=== PATIENT | male | born 1940 | race Two or more races ===

== ENCOUNTER → 2022-12-05 11:00 | Outpatient (BNVA) | payer SELFPAY | PROVIDERS: PCP Family Medicine; Visit Provider Nurse Practitioner Family | DX: N40.1 Benign prostatic hyperplasia with lower urinary tract symptoms (principal); N13.8 Other obstructive and reflux uropathy; R35.0 Frequency of micturition; R33.9 Retention of urine, unspecified; E11.65 Type 2 diabetes mellitus with hyperglycemia; N18.9 Chronic kidney disease, unspecified; Z79.82 Long term (current) use of aspirin; Z79.4 Long term (current) use of insulin; Z79.899 Other long term (current) drug therapy | CPT/HCPCS: 51798 ==

== ENCOUNTER 2022-12-27 13:03 | Outpatient (REF) | payer MEDICARE, OTHER, SELFPAY ==
[2022-12-27 14:17] LABS: Anion Gap 10 (12-20); Blood Urea Nitrogen 50 mg/dL (9-16); Calcium 9.5 mg/dL (8.4-10.2); Carbon Dioxide 29 mmol/L (22-29); Chloride 103 mmol/L (96-108); Estimated Glomerular Filt Rate 34; Glucose Random 141 mg/dL (60-115); Potassium 4.3 mmol/L (3.3-5.1); Sodium 138 mmol/L (135-145)
[2022-12-27 14:34] LABS: PSA,Total (Free>4and<10) 0.41 ng/mL (0.00-4.00)
[2022-12-27 14:47] LABS: Folate 13.3 ng/mL (> or = 4.0); Thyroid Stimulating Hormone 3.11 uIU/mL (0.32-4.0); Vitamin B12 252 pg/mL (200-900); Vitamin D 25-OH Total 36.2 ng/mL (>30)
[2022-12-29 17:19] LABS: Homocysteine 21.3 umol/L (<11.4)
[2023-01-01 06:53] LABS: Methylmalonic Acid 423 nmol/L (87-318)
== END 2022-12-27 13:04 | disposition home or self-care (01) ==
LOC: HO.LAB 13:03
PROVIDERS: Nurse Practitioner Family; Visit Provider Psychiatry & Neurology Neurology
DX: Z12.5 Encounter for screening for malignant neoplasm of prostate (principal); G31.84 Mild cognitive impairment of uncertain or unknown etiology; N40.0 Benign prostatic hyperplasia without lower urinary tract symptoms
CPT/HCPCS: 36415; 80048; 82306; 82607; 82746; 83090; 83921; 84153; 84443

== ENCOUNTER 2023-01-05 09:58 | Outpatient (REF) | payer MEDICARE, OTHER, SELFPAY ==
--- NOTE | ~2023-01-05 | US_ITS ---
EXAMINATION: US RETROPERITONEAL COMPLETE (RENAL) CLINICAL INFORMATION: Benign prostatic hyperplasia without lower urinary tract symptoms. COMPARISON: None available. TECHNIQUE: Real-time imaging of the kidneys and bladder. FINDINGS: RIGHT KIDNEY: 12.1 x 6.4 x 5.0 cm (SAG x AP x TRV). The kidney is normal in size, contour, and echogenicity. Renal cortical thickness is normal. No renal calculi or hydronephrosis. There is a benign 1.7 cm upper pole cyst which needs no additional imaging or follow up. No solid renal masses. LEFT KIDNEY: 12.3 x 5.9 x 4.2 cm (SAG x AP x TRV). The kidney is normal in size, contour, and echogenicity. Renal cortical thickness is normal. No renal calculi or hydronephrosis. There are 4 benign Bosniak class I simple cysts, all under a centimeter in size, with the largest measuring 0.8 cm. No additional imaging or follow up is needed. No solid renal masses. BLADDER: Well distended and normal. Bilateral ureteral jets are demonstrated. Prevoid bladder volume is 147 mL. Postvoid bladder volume is 15.9 mL. Enlarged prostate, volume 56.2 mL. US/US retroperitoneal comp IMPRESSION: BPH with 56.2 mL prostate and 15.9 mL postvoid residual.
== END 2023-01-05 09:59 | disposition home or self-care (01) ==
LOC: HO.US 09:58
PROVIDERS: PCP Family Medicine; Visit Provider Nurse Practitioner Family
DX: N40.0 Benign prostatic hyperplasia without lower urinary tract symptoms (principal); R35.0 Frequency of micturition
CPT/HCPCS: 76770

== ENCOUNTER → 2023-01-20 10:52 | Outpatient (BNVA) | payer MEDICARE, OTHER, SELFPAY | PROVIDERS: Visit Provider Nurse Practitioner Family | DX: N40.1 Benign prostatic hyperplasia with lower urinary tract symptoms (principal); R33.9 Retention of urine, unspecified; R35.0 Frequency of micturition; R35.1 Nocturia; N28.1 Cyst of kidney, acquired | CPT/HCPCS: 51798; 99212 ==

== ENCOUNTER → 2023-01-25 08:48 | Outpatient (REF) | payer MEDICARE, OTHER, SELFPAY | LOC: HO.SL 08:48 | PROVIDERS: PCP Family Medicine; Visit Provider Psychiatry & Neurology Neurology | DX: G47.33 Obstructive sleep apnea (adult) (pediatric) (principal) | CPT/HCPCS: 95806 ==

== ENCOUNTER → 2023-01-25 19:00 | Outpatient (BNV) | payer MEDICARE, SELFPAY | PROVIDERS: PCP Family Medicine; Visit Provider Internal Medicine | DX: R06.83 Snoring (principal) | CPT/HCPCS: 95806 ==

== ENCOUNTER 2023-01-31 08:03 | Outpatient (REF) | payer MEDICARE, SELFPAY ==
--- NOTE | ~2023-01-31 | CT_ITS ---
EXAMINATION: CT HEAD WITHOUT CONTRAST CLINICAL INFORMATION: Cognitive impairment. COMPARISON: None available. TECHNIQUE: Contiguous axial imaging was performed from the skull base to vertex without intravenous administration of contrast. This CT examination was performed using dose optimization techniques as appropriate, variously including the following: *Automated exposure control. *Adjustment of mA and/or kV according to patient size (this includes techniques or standardized protocols for targeted exams where dose is matched to indication/reason for exam; i.e. extremities or head). *Use of iterative reconstruction technique. DLP: 902 mGy-cm FINDINGS: There is chronic encephalomalacia within the left occipital lobe with associated volume loss. 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 No additional loss of clark-white matter differentiation. No evidence of acute intracranial hemorrhage. Scattered and partially confluent hypoattenuation in the periventricular and deep white matter are consistent with moderate to extensive microangiopathy. Proportional prominence of the ventricles and sulcal spaces without evidence of obstructive hydrocephalus. No abnormal mass effect or midline shift. No extra-axial fluid collections. No acute soft tissue or osseous abnormalities. Mild mucosal thickening of the paranasal sinuses. The mastoid air cells and middle ear cavities are clear. Moderate degenerative arthropathy of the right temporomandibular joint. Bilateral lens extractions. CT/CT head/brain wo IV con IMPRESSION: 1. No evidence of acute intracranial hemorrhage or edematous territorial infarction. 2. Chronic encephalomalacia of the left occipital lobe. 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 Moderate to extensive underlying microangiopathy and generalized cerebral volume loss.
== END 2023-01-31 08:04 | disposition home or self-care (01) ==
LOC: HO.CT 08:03
PROVIDERS: PCP Family Medicine; Visit Provider Psychiatry & Neurology Neurology
DX: G31.84 Mild cognitive impairment of uncertain or unknown etiology (principal)
CPT/HCPCS: 70450

== ENCOUNTER 2023-04-18 12:41 | Outpatient (REF) | payer MEDICARE, SELFPAY ==
--- NOTE | ~2023-04-18 | XR_ITS ---
EXAMINATION: XR LUMBOSACRAL SPINE WITH OBLIQUES CLINICAL INFORMATION: Pain in right hip, chronic right-sided low back pain with right-sided radiculopathy COMPARISON: None available. TECHNIQUE: AP, both oblique, and lateral views of the lumbar spine. Lateral view of the lumbosacral junction. FINDINGS: There are 5 nonrib-bearing lumbar-type vertebral bodies. The height of vertebral bodies is well-maintained. There is mild disc space narrowing at L3-L4 and L4-L5. There is marked degenerative facet joint disease at L5-S1 with grade 1 anterolisthesis of L5 with respect to S1. There is calcification of the abdominal aorta without evidence of aneurysmal dilatation. XR/XR lumbar spine 4V min IMPRESSION: 1. Multilevel degenerative disc disease. 2. Marked degenerative facet joint disease at L5-S1 with grade 1 anterolisthesis of L5 with respect to S1.
--- NOTE | ~2023-04-18 | XR_ITS ---
EXAMINATION: XR HIP, RIGHT CLINICAL INFORMATION: Pain of right hip, chronic right-sided low back pain with right-sided radiculopathy COMPARISON: None available. TECHNIQUE: Two views of the right hip. FINDINGS: No fracture. Alignment is anatomic. Mild superior-lateral narrowing of the cartilage space of the right hip. Soft tissues are unremarkable. Femoral arterial vascular calcification is seen consistent with atherosclerosis. XR/XR hip RT min 2V IMPRESSION: Mild osteoarthritis of the right hip.
== END 2023-04-18 12:42 | disposition home or self-care (01) ==
LOC: HO.HHCX 12:41
PROVIDERS: Visit Provider Family Medicine
DX: M25.551 Pain in right hip (principal); M54.10 Radiculopathy, site unspecified; M54.50 Low back pain, unspecified
CPT/HCPCS: 72110; 73502

== ENCOUNTER 2023-08-30 16:00 | Outpatient (REF) | payer MEDICARE, SELFPAY ==
[2023-08-30 16:15] LABS: Appearance Urine Clear; Color Urine Yellow; Glucose Urine UA >=1000 mg/dL (Negative); Leukocyte Esterase Urine Negative (Negative); Nitrite Urine Negative (Negative); PH 5.5 (5.0-9.0); UMIC TRIGGER UA YES; Urine Blood Negative (Negative); Urine Ketones Negative (Negative); Urine Protein 100 (2+) mg/dL (Neg-Trace)
[2023-08-30 16:17] LABS: Bacteria Urine None Seen (None Seen); Hyaline Casts Urine 0-2 /LPF (0-2); RBC Urine 0-2 /HPF (0-2); Squamous Epithelial Cell Urine 0-2 /HPF (0-2); WBC Urine 0-5 /HPF (0-5)
[2023-08-30 17:17] LABS: Microalbum/Creatinine Ratio Ur 1055.1 ug/mg cr (<30)
== END 2023-08-30 16:01 | disposition home or self-care (01) ==
LOC: HO.HHCLNP 16:00
PROVIDERS: Visit Provider Family Medicine
DX: R30.0 Dysuria (principal); E11.22 Type 2 diabetes mellitus with diabetic chronic kidney disease; N18.32 Chronic kidney disease, stage 3b
CPT/HCPCS: 81001; 82043; 82570; 87086

== ENCOUNTER 2023-10-11 11:15 | Outpatient (REF) | payer MEDICARE, SELFPAY ==
[2023-10-11 13:27] LABS: MANUAL DIFF FLAG NO
[2023-10-11 13:31] LABS: Basophils Absolute Auto 0.1 X10*3/uL (0.0-0.2); Basophils Percent Auto 0.8 % (0-2); Eosinophils Absolute Auto 0.1 X10*3/uL (0.0-0.4); Eosinophils Percent Auto 1.3 % (0-4); Hematocrit 35.3 % (42.0-52.0); Hemoglobin 10.8 g/dl (14.0-18.0); Imm Gran Abs Auto 0.03 X10*3/uL (0.00-0.03); Imm Gran Pct Auto 0.4 % (0.0-0.4); Lymphocytes Absolute Auto 1.4 X10*3/uL (1.2-4.9); Mean Corpuscular HGB Conc 30.6 g/dl (31.0-36.0); Mean Corpuscular Hemoglobin 26.2 pg (27.0-33.0); Mean Corpuscular Volume 85.5 fL (80.0-98.0); Mean Platelet Volume 9.2 fL (9.4-12.4); Monocytes Absolute Auto 0.5 X10*3/uL (0.1-1.2); Monocytes Percent Auto 6.7 % (2-11); Neutrophils Absolute Auto 5.7 x10*3/uL (2.0-8.3); Neutrophils Percent Auto 72.8 % (45-73); Platelet Count 284 X10*3/uL (160-400); Red Blood Count 4.13 X10*6/uL (4.60-5.80); White Blood Count 7.8 X10*3/uL (4.8-10.8)
[2023-10-11 14:01] LABS: Alanine Aminotransferase 12 U/L (0-40); Albumin Level 4.2 g/dL (3.5-5.0); Alkaline Phosphatase 93 U/L (39-117); Anion Gap 14 (12-20); Aspartate Amino Transferase 13 U/L (5-37); Bilirubin Total 0.3 mg/dL (0.0-1.0); Blood Urea Nitrogen 23 mg/dL (9-16); Calcium 9.6 mg/dL (8.4-10.2); Carbon Dioxide 27 mmol/L (22-29); Chloride 99 mmol/L (96-108); Cholesterol 153 mg/dL (<200); Estimated Glomerular Filt Rate 35; Glucose Random 190 mg/dL (60-115); HDL Cholesterol 69 mg/dL (>40); LDL Cholesterol Calculated 61 mg/dL (<100); Potassium 4.1 mmol/L (3.3-5.1); Sodium 136 mmol/L (135-145); Total Protein 7.8 g/dL (6.5-8.0); Triglycerides 119 mg/dL (<150)
[2023-10-11 14:05] LABS: Reflex LDLD? No
[2023-10-11 14:21] LABS: Folate 13.5 ng/mL (> or = 4.0); Vitamin B12 1338 pg/mL (200-900)
[2023-10-11 14:37] LABS: Free T4 (Free Thyroxine) 1.05 ng/dL (0.71-1.85)
== END 2023-10-11 11:16 | disposition home or self-care (01) ==
LOC: HO.HHCL 11:15
PROVIDERS: Visit Provider Family Medicine
DX: E11.22 Type 2 diabetes mellitus with diabetic chronic kidney disease (principal); N18.32 Chronic kidney disease, stage 3b; R63.4 Abnormal weight loss
CPT/HCPCS: 36415; 80053; 80061; 82607; 82746; 84439; 84443; 85025

== ENCOUNTER 2024-01-17 10:01 | Outpatient (REF) | payer MEDICARE, SELFPAY ==
[2024-01-17 11:26] LABS: Prostate Specific Antigen 0.67 ng/mL (<0.05-4.0)
== END 2024-01-17 10:02 | disposition home or self-care (01) ==
LOC: HO.10HDL 10:01
PROVIDERS: Visit Provider Nurse Practitioner Family
DX: Z12.5 Encounter for screening for malignant neoplasm of prostate (principal); R33.9 Retention of urine, unspecified; R35.0 Frequency of micturition; N40.0 Benign prostatic hyperplasia without lower urinary tract symptoms; N28.1 Cyst of kidney, acquired; R35.1 Nocturia
CPT/HCPCS: 36415; 51798; 84153; 99212

== ENCOUNTER 2024-01-17 13:42 | Outpatient (AMB) | payer MEDICARE, MEDICAID, SELFPAY ==
--- NOTE | 2024-01-17 13:44 | A.OFFVIS_ITS ---
Intake Visit Reasons: 1y/PVR/labs Intake Note: Patient is present for follow up bph/urinary frequency/ultrasound/labs (imaging 01/05/23) (psa 0.41) Urology medications: finasteride, tamsulosin Blood Thinner: aspirin, apixaban PVR: 81ml's Personnel Manager Required: Yes Accompanied by: Daughter Allergies ezetimibe Allergy (Verified 01/17/24 14:12) itchy throat rosuvastatin Adverse Reaction (Verified 01/17/24 14:12) Muscle cramps Medication List - Last Reconciled 01/17/24 by LUIS Bustillo- amlodipine 10 mg PO DAILY apixaban (Eliquis) 5 mg PO BID aspirin 81 mg PO DAILY carvedilol 12.5 mg PO BID cholecalciferol (vitamin D3) 50 mcg PO DAILY dapagliflozin propanediol (Farxiga) 5 mg PO DAILY dulaglutide (Trulicity) mg subcut finasteride 5 mg PO DAILY furosemide 20 mg PO BID gabapentin 300 mg PO TID glipizide ER 5 mg PO QAM insulin degludec (Tresiba FlexTouch U-100 insulin) 10 units subcut DAILY lidocaine 5% 1 patch topical DAILY melatonin 10 mg PO BEDTIME PRN metformin 500 mg PO BID rosuvastatin 20 mg PO BEDTIME tamsulosin 0.8 mg (2 x 0.4 mg) PO BEDTIME 90 days HPI Comments Details: Lazaro is a pleasant 83-year-old Libyan-speaking male patient of Dr. Lopez who was accompanied by his daughter at today's visit. Patients daughter provides most of patients PMH and information at [facility] visit due to patients memory impairment. He has a past medical history of hypertension, DVTs, uncontrolled diabetes, chronic kidney disease, and heart failure. He presents to the office today for follow-up of his urinary issues. In discussion with the patient and his daughter today he reports to be doing and feeling well. He denies any bothersome urinary issues or concerns. Recent PSA results reviewed with the patient today as noted and trended below. 01/13 0.4, 01/14 0.7 When asked he reports compliance with finasteride and Flomax as prescribed. Previous workup has included a retroperitoneal ultrasound noting right kidney with no calculi or hydronephrosis. Benign 1.7 cm upper pole cyst which needs no additional imaging or follow-up at this time. Left kidney with no calculi or hy dronephrosis. There are four benign Bosniak class 1 simple cyst, all under a cm in size, with the largest measuring 0.8 cm. No additional imaging or follow-up is needed. The bladder is well distended and normal. The prostate measures approximately 57 mL. He otherwise denies incontinence, nocturia, hematuria, dysuria, foul smelling urine, changes to urinary stream, flank pain, fever, and or chills. Discussed importance of managing diabetes for improvement in urinary symptoms as well as overall health and well being. Unable to obtain urine for urinalysis however PVR 81ml's. COUNTS INCLUDE 234 BEDS AT THE [facility] Medical History Chronic bilateral back pain Cognitive impairment Urinary frequency Memory problem Dyslipidemia Type 2 diabetes mellitus Urinary incontinence Chronic kidney disease Benign prostatic hyperplasia with lower urinary tract symptoms Primary hypertension Premature atrial complexes Sleep disturbance Review of Systems Const Reports as per HPI Eyes Reports no additional complaints ENT Reports no additional complaints Card Reports as per HPI Resp Reports no additional complaints GI Reports no additional complaints Reports as per HPI Musc Reports no additional complaints Neuro Reports no additional complaints Psych Reports no additional complaints Endo Reports as per HPI Jensen/Lymph Reports as per HPI Physical Exam Const General: cooperative, healthy appearing, comfortable, no acute distress, well developed, alert and awake Orientation/consciousness: patient oriented x3 Limitations: ambulation with cane HEENT Head: Yes normal to inspection, Yes normocephalic and Yes atraumatic Ears: hearing grossly normal bilaterally Eyes General: appearance normal, both eyes and all related structures Neck Neck: Yes normal visual inspection and Yes trachea midline Chest Chest palpation & inspection: normal inspection of the chest Resp Effort & Inspection: normal respiratory effort and able to speak in complete sentences Cardio Rate: regular rate GI Inspection: Yes normal to inspection General: Yes no CVA tenderness Back/Spine/Pelvis Back: no CVA tenderness Skin General skin exam: no rashes or lesions noted Neuro General: patient oriented x3 Extrem General: Yes normal to inspection Psych Appearance: grossly normal and well kempt Mental Status: mental status grossly normal Speech and movement: Normal speech and movement present and Clear speech present Affect: normal affect Attitude: cooperative Thought process: Normal thought process present Thought content: Normal thought content present Insight: Fair insight present (Psych) Judgement: Fair judgement present (Psych) Office Procedures Post Void Residual Post Residual Void Post Void Residual (PVR): 81 [id number] Void Residual by ultrasound Assessment & Plan Assessment & Plan (1) Incomplete bladder emptying: Code(s): R33.9 - Retention of urine, unspecified Category: Medical (2) Urinary frequency: Code(s): R35.0 - Frequency of micturition Category: Medical (3) BPH (benign prostatic hyperplasia): Code(s): N40.0 - Benign prostatic hyperplasia without lower urinary tract symptoms Category: Medical (4) Enlarged prostate: Code(s): N40.0 - Benign prostatic hyperplasia without lower urinary tract symptoms Category: Medical (5) Renal cyst: Code(s): N28.1 - Cyst of kidney, acquired Category: Medical (6) Nocturia: Code(s): R35.1 - Nocturia Category: Medical Plan Unable to obtain urine for urinalysis however PVR 81 mL. Recent PSA results reviewed with the patient and his daughter today; as noted above. Continue Flomax and finasteride as prescribed; refills provided Patient currently denies any bothersome urinary issues or concerns. He reports be happy with current voiding parameters. Will obtain PSA in 1 year. Follow-up in 1 year with lab to be completed prior and PVR at next office visit; or sooner with any issues, concerns, and or questions. Orders: Orders AMB Post Void Residual by ultrasound Today R35.1 - Nocturia Prostate Specific Antigen Today Z12.5 - Encounter for screening for malignant neoplasm of prostate Prostate Specific Antigen 1 Year N40.0 - Benign prostatic hyperplasia without lower urinary tract symptoms Medications: Changed From finasteride 5 mg PO DAILY To finasteride 5 mg PO DAILY 90 days 90 tabs 2RF Refilled tamsulosin 0.8 mg (2 x 0.4 mg) PO BEDTIME 90 days 180 caps 3RF N13.8 - Other obstructive and reflux uropathy, N40.1 - Benign prostatic hyperplasia with lower urinary tract symptoms Patient Instructions: The patient had an opportunity to ask questions regarding the treatment plan. All questions were answered. Physical exam, labs, and imaging were discussed and reviewed in detail. As well as risks, benefits, and discussion of treatment choices. No major barriers to understanding were identified. The patient expressed understanding and agreement with the above treatment plan. The patient was made aware they should contact our office by phone for worsening of their current condition, the appearance of new symptoms, or with any questions or concerns. Compliance is encouraged with any medications and follow up testing that is ordered. It is a privilege to be allowed the opportunity to participate in? your urological care.? Again, if you have any questions or concerns If you have any questions or concerns please do not hesitate to contact me. The office is [phone]. This note is constructed using voice recognition software. While every effort has been made to ensure accuracy education program coordinator errors may have been included. Yours sincerely, SABRINA Bustillo Coding Level of Care Code Est Pt Level 3 (05769) Diagnoses Incomplete bladder emptying R33.9 Urinary frequency R35.0 BPH (benign prostatic hyperplasia) N40.0 Enlarged prostate N40.0 Renal cyst N28.1 Nocturia R35.1 CPT Codes Post Residual Void - PVR CPT Code: 38675-[id number] Void Residual by ultrasound ([id number])
== END 2024-01-17 14:12 | disposition home or self-care (01) ==
LOC: HO.HUSH 13:42
PROVIDERS: PCP Family Medicine; Visit Provider Nurse Practitioner Family
DX: R33.9 Retention of urine, unspecified (principal); R35.0 Frequency of micturition; N40.0 Benign prostatic hyperplasia without lower urinary tract symptoms; N28.1 Cyst of kidney, acquired; R35.1 Nocturia
CPT/HCPCS: 99213

== ENCOUNTER 2024-06-18 10:15 | Outpatient (REF) | payer MEDICARE, MEDICAID, SELFPAY ==
[2024-06-18 12:25] LABS: Alanine Aminotransferase 18 U/L (0-40); Albumin Level 3.9 g/dL (3.5-5.0); Alkaline Phosphatase 76 U/L (39-117); Anion Gap 11 (12-20); Aspartate Amino Transferase 16 U/L (5-37); Bilirubin Total 0.5 mg/dL (0.0-1.0); Blood Urea Nitrogen 30 mg/dL (9-16); Calcium 9.1 mg/dL (8.4-10.2); Carbon Dioxide 24 mmol/L (22-29); Chloride 104 mmol/L (96-108); Estimated Glomerular Filt Rate 29; Glucose Random 182 mg/dL (60-115); Potassium 4.3 mmol/L (3.3-5.1); Sodium 135 mmol/L (135-145)
== END 2024-06-18 10:16 | disposition home or self-care (01) ==
LOC: HO.HHCL 10:15
PROVIDERS: Visit Provider Internal Medicine
DX: E11.22 Type 2 diabetes mellitus with diabetic chronic kidney disease (principal); N18.32 Chronic kidney disease, stage 3b
CPT/HCPCS: 36415; 80053

== ENCOUNTER 2024-09-11 11:33 | Outpatient (REF) | payer MEDICARE, MEDICAID, SELFPAY ==
--- OUTSIDE RECORDS SUMMARY | 2024-09-11 12:12 | XMS_ITS | Encounter Summary ---
Author Organization [employer] Address [address] [facility] [address] [place] [address] Care Team Providers Care Child And Adolescent Therapist Name Role Phone Lula Lopez MD Primary Care Provider [phone] Pieter Murguia PharmD Unavailable [phone] Kushal Doe MD Unavailable Encounter Details Date Type Department Care Team (Latest Contact Info) Description 09/11/2024 Travel Social History Tobacco Use Types Packs/Day Years Used Date Smoking Tobacco: Never Passive Smoke Exposure: Never Smokeless Tobacco: Never Alcohol Use Standard Drinks/Week Comments Not Currently 0 (1 standard drink = 0.6 oz pur e alcohol) Depression Answer Date Recorded Patient Health Questionnaire-9 Score 2 10/11/2022 Housing Stability Answer Date Recorded What is your housing situation today? I am not s ure 09/11/[address] you li ve. Do you have problems with any of the following? None of the above 09/11/2024 Food Insecurity Answer Date Recorded Within the past 12 months, y ou worried that your food would run out before you got money to buy more: Never True 09/11/2024 Within the past 12 months,th e food you bought just didn't last and you didn't have enough money to get more: Never True Transportation Answer Date Recorded In the past 12 months, has l ack of transportation kept you from medical appts, meetings, work or from getting things needed for daily living? No 09/11/2024 Utilities Answer Date Recorded In the past 12 months, has t he electric, gas, oil or water company threatened to shut off services in your home? No 09/11/2024 Depression Answer Date Recorded Patient Health Questionnaire-2 Score 2 10/11/2022 Internet Access Answer Date Recorded Internet Access Q1 No 09/11/2024 Internet Access Q2 I do not want or need it 08/24 Sex and Gender Information Value Date Recorded Sex Assigned at Male 05/23/2022 10:38 AM EDT Legal Sex Male 10:38 AM EDT Gender Identity Male 05/23/2022 10:38 AM EDT Sexual Orientation Straight 01/05/2023 3: 34 PM EDT documented as of this encounter Plan of Treatment Not on file documented as of this encounter Goals Goal Patient Goal Type Associated Problems Recent Progress Patient-Stated? Author Blood Pressure < 140/90 Blood Pressure 140/70( 025 11:18 AM EST) No Pieter Murguia, PharmD documented as of this encounter Visit Diagnoses Not on filedocumented in this encounter Additional Health Concerns Assessment Noted Time PHQ-9 Depression Total Score: 2 10/12/19 23 10:24 AM EDT documented as of this encounter Care Teams Child And Adolescent Therapist Relationship Specialty Start Date End Date Lula Lopez MD [address] [place] [address] PCP - General Family Medicine 09/01/22 Pieter Murguia, PharmD [address] [place] [address] Pharmacist Internal Medicine 11/28/22 Kushal Doe MD [facility] Nephrology [address] [place] [id number] Nephrology 06/19/24 documented as of this encounter
--- OUTSIDE RECORDS SUMMARY | 2024-09-11 12:12 | XMS_ITS | Encounter Summary ---
Author Organization [employer] Address [address] [facility] [address] [place] [address] Care Team Providers Care Facing Baster Name Role Phone Lula Lopez MD Primary Care Provider [phone] Pieter Murguia PharmD Unavailable [phone] Kushal Doe MD Unavailable Reason for Visit * Reason Comments Med Refill Encounter Details Date Type Department Care Team (Late st Contact Info) Description 04/07/2024 Refill [facility] MEDICINE [address] [place], [place] [phone] Lula Lopez MD [address] [place], [place] [phone] Social History Tobacco Use Types Packs/Day Years Used Date Smoking Tobacco: Never Passive Smoke Exposure: Never Smokeless Tobacco: Never Alcohol Use Standard Drinks/Week Comments Not Currently 0 (1 standard drink = 0.6 oz pur e alcohol) Depression Answer Date Recorded Patient Health Questionnaire-9 Score 2 10/11/2022 Housing Stability Answer Date Recorded What is your housing situation today? I have rica cantu 05/12/[address] you li ve. Do you have problems with any of the following? None of the above 05/12/2023 Food Insecurity Answer Date Recorded Within the past 12 months, y ou worried that your food would run out before you got money to buy more: Never True 05/12/2023 Within the past 12 months,th e food you bought just didn't last and you didn't have enough money to get more: Never True Transportation Answer Date Recorded In the past 12 months, has l ack of transportation kept you from medical appts, meetings, work or from getting things needed for daily living? No 05/12/2023 Utilities Answer Date Recorded In the past 12 months, has t he electric, gas, oil or water company threatened to shut off services in your home? No 05/12/2023 Depression Answer Date Recorded Patient Health Questionnaire-2 Score 2 10/11/2022 Sex and Gender Information Value Date Recorded [...] documented as of this encounter Care Teams Facing Baster Relationship Specialty Start Date End Date Lula Lopez MD [address] [place] [address] PCP - General Family Medicine 09/01/22 Pieter Murguia, PharmD [address] [place] [address] Pharmacist Internal Medicine 11/28/22 Kushal Doe MD [facility] Nephrology [address] [place] [id number] Nephrology 06/19/24 documented as of this encounter
--- OUTSIDE RECORDS SUMMARY | 2024-09-11 12:12 | XMS_ITS | Patient Health Record ---
[facility] Address [address] [place] [address] Care Team Providers Care Wall Washer Name Role Phone Campbell, Travis Primary Care Provider Tonio Holloway Unavailable [phone] Allergies Allergen (clinical drug ingredient) Drug/Non Drug Allergy documented on EMR Reaction Allergy Type Onset Date Status rosuvastatin Crestor muscle cramps Drug Allergy Active ezetimibe Zetia itchy throat Drug Allergy Acti ve lactose Lactose (Intolerance) Unknown Drug Allergy Active Reason For Referral No Information Medications Medication SIG (Take, Route, Frequency, Duration) Notes Start Date End Date Status Rosuvastatin Calcium 20 MG 1 tablet Oral ly Once a day for 30 day(s) Active hydroCHLOROthiazide 25 MG 1 tablet in th e morning Orally Once a day for 30 day(s) Active amLODIPine Besylate 5 MG 1 tablet Orally Once a day for 30 day(s) Active metFORMIN HCl 1000 MG 1 tablet with a me al Orally Once a day for 30 day(s) Active Losartan Potassium 50 MG 1 tablet Orally Once a day for 30 day(s) Active Ginkgo Biloba Active Isosorbide Mononitrate ER 30 MG 1 tablet in the morning Orally Once a day for 30 day(s) Active [place] 3-6-9 - as directed Orally Active Carvedilol 25 MG 1 tablet with food Orally Twice a day for 30 day(s) Active Finasteride 5 MG 1 tablet Orally Once a day for 30 day(s) Active Omeprazole 40 MG 1 capsule 30 minutes before morning meal Orally Once a day for 30 day(s) Not-Taking glipiZIDE ER 10 MG 1 tablet with breakfast Orally Once a day for 30 day(s) Active Gabapentin 300 MG 1 capsule Orally Twice a day Not-Taking Aspirin Adult Low Strength 81 MG 1 tablet Orally Once a day for 30 day(s) Active Furosemide 20 MG 1 tablet Orally Once a day for 30 day(s) Active Tamsulosin HCl 0.4 MG 1 capsule Orally O nce a day for 30 day(s) Active Iron Not-Taking Extra Depth Orthopedic Shoes (1 Pair) with Customized Heat Molded Multidensity Innersoles (3 Pair) as directed Dx: NIDDM/PVD (E11.59), Hammertoe Foot Deformity (M20.41,M20.42), Preulcerative Skin Lesion(s) (L85.1) 09/30/2020 Active Social History Tobacco Use: Social History Observation Description Date Details (start date - stop date) Never Smoker NA - NA Tobacco Use/Smoking Question Answer Notes Are you a: nonsmoker Additional Findings: Tobacco Non-User Current no n-smoker Alcohol Screen Question Answer Notes Did you have a drink containing alcohol in the p ast year? No Points 0 Interpretation Negative Tobacco use other than smoking: Question Answer Notes Are you an other tobacco user? No Problems Problem Type SNOMED Code ICD Code Onset Dates Problem Status W/U Status Risk Notes Problem Type 2 diabetes mellitus with peripheral angiopathy (658522789) Type 2 diabetes mellitus with diabetic peripheral angiopathy without gangrene (E11.51) Active confirmed Plan Of Treatment Pending Test Test Name Order Date [id number] NAIL, 6 OR MORE 09/30/2020 [id number] SKIN LESIONS, 2 TO 4 10/01/19 21 Insurance Providers Payer Name Payer Address Payer Phone Subscriber Number Group Number Insured Name Patient Relationship to Insured Coverage Start Date Coverage End Date [facility] Medicare Complete [address] [address] [place] [address] [id number] Lazaro Saleh Self - patient is the insured Medical (General) History Medical History History ICD Code Hypertension type II diabetes Hyperlipidemia Depression Prostate conditions Anemia Angina Heart disease Back pain Cataracts High blood pressure Measles Mumps Chicken pox Surgical History Surgery Date(Month/Year) stent insertion - three 08/2015 cholecystectomy Hernia Repair foot surgery - 5 metatarsal removed 10/10 17 cataract surgery 01/2017
--- OUTSIDE RECORDS SUMMARY | 2024-09-11 12:12 | XMS_ITS | Encounter Summary ---
Author Organization [employer] Address [address] [facility] [address] [place] [address] Care Team Providers Care Derrick Car Operator Name Role Phone Lula Lopez MD Primary Care Provider Pieter Murguia PharmD Unavailable [phone] Kushal Doe MD Unavailable Reason for Visit * Reason Comments Med Refill Encounter Details Date Type Department Care Team (Late st Contact Info) Description 04/10/2024 Refill [facility] MEDICINE [address] [place], [place] [phone] Lula Lopez MD [address] [place], [place] [phone] Pain of right hip; Chronic right-sided low back pain, unspecified whether sciatica present Social History Tobacco Use Types Packs/Day Years [...] documented as of this encounter Visit Diagnoses Diagnosis Pain of right hip Chronic right-sided low back pain, unspecified whether sciatica present documented in this encounter Additional Health Concerns Assessment Noted Time PHQ-9 Depression Total Score: 2 10/12/19 23 10:24 AM EDT documented as of this encounter Care Teams Derrick Car Operator Relationship Specialty Start Date End Date Lula Lopez MD [address] [place] [address] PCP - General Family Medicine 09/01/22 Pieter Murguia, PharmD [address] [place] [address] Pharmacist Internal Medicine 11/28/22 Kushal Doe MD [facility] Nephrology [address] [place] [id number] Nephrology 06/19/24 documented as of this encounter
--- OUTSIDE RECORDS SUMMARY | 2024-09-11 12:12 | XMS_ITS | Encounter Summary ---
Author Organization [facility] Address [address] [place] [address] 7t [place] [address] Care Team Providers Care Attendant Self Service Store Name Role Phone Lula Lopez MD Primary Care Provider [phone] Pieter Murguia PharmD Unavailable [phone] Kushal Doe MD Unavailable Encounter Details Date Type Department Care Team (Late st Contact Info) Description 10/07/2022 Abstract [facility] MEDICINE [address] [place], [place] [phone] Lula Lopez MD [address] [place], [place] [phone] Social History Tobacco Use Types Packs/Day Years Used Date Smoking Tobacco: Former Cigarettes Passive Smoke Exposure: Never Smokeless Tobacco: Never Alcohol Use Standard Drinks/Week Comments Not Currently 0 (1 standard drink = 0.6 oz pur e alcohol) Depression Answer Date Recorded Patient Health Questionnaire-9 Score 2 10/11/2022 Depression Answer Date Recorded Patient Health Questionnaire-2 Score 2 10/11/2022 Sex and Gender Information Value Date Recorded Sex Assigned at Male 05/23/2022 10:38 AM EDT Legal Sex Male 10:38 AM EDT Gender Identity Male 05/23/2022 10:38 AM EDT Sexual Orientation Straight 01/05/2023 3: 34 PM EDT documented as of this encounter Plan of Treatment Not on file documented as of this encounter Visit Diagnoses Not on filedocumented in this encounter Care Teams Attendant Self Service Store Relationship Specialty Start Date End Date Lula Lopez MD [address] [place] [address] PCP - General Family Medicine 09/01/22 Pieter Murguia, PharmD [address] [place] [address] Pharmacist Internal Medicine 11/28/22 Kushal Doe MD [facility] Nephrology [address] [place] [address] Nephrology 06/19/24 documented as of this encounter
--- OUTSIDE RECORDS SUMMARY | 2024-09-11 12:12 | XMS_ITS ---
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) ACTIVE 09/17/2022 MUSCLE WEAKNESS (GENERALIZED) (M62.81 - ICD-10-CM) ACT ANA 09/17/2022 DIFFICULTY IN WALKING, NOT E LSEWHERE CLASSIFIED (R26.2 - ICD-10-CM) ACTIVE 09/17/2022 WEAKNESS (R53.1 - ICD-10-CM) ACTIVE 09/17/2022 ESSENTIAL (PRIMARY) HYPERTENSION (I10 - ICD-10-CM) ACT ANA 09/17/2022 TYPE 2 DIABETES MELLITUS WIT HOUT COMPLICATIONS (E11.9 - ICD-10-CM) ACTIVE 09/17/2022 UNSPECIFIED DEMENTIA, UNSPEC IFIED SEVERITY, WITHOUT BEHAVIORAL DISTURBANCE, PSYCHOTIC DISTURBANCE, MOOD DISTURBANCE, AND ANXIETY (F03.90 - ICD-10-CM) ACTIVE 09/17/2022 REPEATED FALLS (R29.6 - ICD-10-CM) ACTIVE 2022 ACUTE EMBOLISM AND THROMBOSI S OF UNSPECIFIED DEEP VEINS OF LOWER EXTREMITY, BILATERAL (I82.403 - ICD-10-CM) ACTIVE 09/17/2022 RETENTION OF URINE, UNSPECIFIED (R33.9 - ICD-10-CM) AC TIVE 09/17/2022 HYPERTENSIVE URGENCY (I16.0 - ICD-10-CM) ACTIVE 09/17/2022 OTHER SPECIFIED CARDIAC ARRHYTHMIAS (I49.8 - ICD-10-CM ) ACTIVE 09/17/2022 VITAMIN DEFICIENCY, UNSPECIFIED (E56.9 - ICD-10-CM) AC TIVE 09/17/2022 HYPERLIPIDEMIA, UNSPECIFIED (E78.5 - ICD-10-CM) ACTIVE 09/17/2022 UNSPECIFIED FALL, SEQUELA (W19.XXXS - ICD-10-CM) ACTIV E 09/17/2022 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 with home health services [facility] 09/17/2022 04:16 pm EST - 09/22/2022 02:23 pm EST Immunizations Vaccine Date SARS-COV-2 (COVID-19) 11/18/2020 12:00 a m EDT SARS-COV-2 (COVID-19) 10/20/2020 12:00 a m EDT SARS-COV-2 (COVID-19 BOOSTER) 11/04/2021 12:00 am EDT SARS-COV-2 (COVID-19 BOOSTER) 06/29/2021 12:00 am EST Social History
--- OUTSIDE RECORDS SUMMARY | 2024-09-11 12:12 | XMS_ITS | Encounter Summary ---
Author Organization [employer] Address [address] [place] [address] 7 [place] [address] Care Team Providers Care Cnc Manufacturing Engineer Name Role Phone Lula Lopez MD Primary Care Provider [phone] Pieter Murguia PharmD Unavailable [phone] Kushal Doe MD Unavailable Reason for Visit * Reason Comments Follow-up Encounter Details Date Type Department Care Team (Late st Contact Info) Description 09/11/2024 10:30 AM EST Office Visit [facility] MEDICINE [address] [place], [place] [phone] Lula Lopez MD [address] [place], [place] [phone] Primary hypertension (Primary Dx); Ischemic heart disease; Chronic heart failure with preserved ejection fraction (CMS/HCC); Stage 3b chronic kidney disease (CMS/HCC); Urinary incontinence, unspecified type; Benign prostatic hyperplasia with urinary frequency; Type 2 diabetes mellitus with stage 3b chronic kidney disease, without long-term current use of insulin (CMS/HCC); Dyslipidemia; Cognitive impairment; Chronic low back pain, unspecified back pain laterality, unspecified whether sciatica present; Atrial premature complex; Urinary urgency Social History Tobacco Use Types Packs/Day Years [...] PM EDT documented as of this encounter Last Filed Vital Signs Vital Sign Reading Time Taken Comments Blood Pressure 140/70 09/11/2024 11:18 AM EST Pulse 78 09/11/2024 10:55 AM EST Temperature 37.2 ??C (98.9 ??F) 09/11/2024 10:[address] Respiratory Rate 20 09/11/2024 10:55 AM EST Oxygen Saturation 97% 09/11/2024 10:55 AM EST Inhaled Oxygen Concentration - - Weight 83.1 kg (183 lb 3.2 oz) 09/11/2024 10:55 AM EST Height - - Body Mass Index 30.34 02/14/2023 10:35 AM EDT documented in this encounter Miscellaneous Notes * Assessment & Plan Note - Lula Lopez MD - 09/11/2024 6:14 AM ESTAssociated Problem(s): Chronic heart failure with preserved ejection fraction (CMS/HCC) - last TTE on 09/15/22 --moderately dilated LA --mild pulmonary HTN (systolic 42 plus RAP) --normal right ventricle size and function. --normal left ventricular size and systolic function, with mild concentric left ventricular hypertrophy. -- left ventricular ejection fraction is 65-70 %. - Nuclear stress test on 12/13/22 EF 65% - optimizing medical management: ASA; carvedilol; SGLT-2 inhibitor; furosemide; rosuvastatin * Assessment & Plan Note - Lula Lopez MD - 09/11/2024 6:13 AM ESTAssociated Problem(s): Atrial premature complex - question of prior Dx atrial fibrillation, - started on Eliquis for DVT in 2021 - sleep study in January 2023 did not show significant ROSALIND, but showed borderline hypoxemia - follow up with specialist as scheduled - consider overnight oximetry and oxygen supplementation if indicated. documented in this encounter Plan of Treatment Scheduled Orders Name Type Priority Associated Diagnoses Orde r Schedule Lipid Panel with Reflex to Direct LDL Lab Routine Type 2 diabetes mellitus with stage 3b chronic kidney disease, without long-term current use of insulin ([facility]) Expected: 09/11/2024 (Approximate), Expires: 09/11/2025 Albumin, Random Urine W/Creatinine Lab Routine Type 2 diabetes mellitus with stage 3b chronic kidney disease, without long-term current use of insulin (CMS/HCC) Expected: 09/11/2024 (Approximate), Expires: 09/11/2025 Comprehensive Metabolic Panel Lab Routine Type 2 diabetes mellitus with stage 3b chronic kidney disease, without long-term current use of insulin (CMS/HCC) Expected: 09/11/2024 (Approximate), Expires: 09/11/2025 TSH with Reflex to Free T4 Lab Routine Type 2 diabetes mellitus with stage 3b chronic kidney disease, without long-term current use of insulin (CMS/HCC) Expected: 09/11/2024 (Approximate), Expires: 09/11/2025 CBC auto differential Lab Routine Type 2 diabetes mellitus with stage 3b chronic kidney disease, without long-term current use of insulin ([facility]) Expected: 09/11/2024 (Approximate), Expires: 09/11/2025 Urinalysis, Complete, with Reflex to Culture Lab Routine Urinary urgency Expected: 09/11/2024 (Approximate), Expires: 09/11/2025 documented as of this encounter Goals Goal Patient Goal Type Associated Problems Recent Progress Patient-Stated? Author Blood Pressure < 140/90 Blood Pressure 140/70( 025 11:18 AM EST) No Pieter Murguia, Ramón documented as of this encounter Visit Diagnoses Diagnosis Primary hypertension- Primary Unspecified essential hypertension Ischemic heart disease Other specified forms of chronic ischemic heart disease Chronic heart failure with preserved ejection fraction ([facility]) Stage 3b chronic kidney disease ([facility]) Urinary incontinence, unspecified type Benign prostatic hyperplasia with urinary frequency Type 2 diabetes mellitus with stage 3b chronic kidney disease, without long-term current use of insulin ([facility]) Dyslipidemia Other and unspecified hyperlipidemia Cognitive impairment Unspecified persistent mental disorders due to conditions classified elsewhere Chronic low back pain, unspecified back pain laterality, unspecified whether sciatica present Atrial premature complex Supraventricular premature beats Urinary urgency Urgency of urination documented in this encounter Additional Health Concerns Assessment Noted Time PHQ-9 Depression Total Score: 2 10/12/19 23 10:24 AM EDT documented as of this encounter Care Teams Cnc Manufacturing Engineer Relationship Specialty Start Date End Date Lula Lopez MD [address] [place] [address] PCP - General Family Medicine 09/01/22 Pieter Murguia, PharmD [address] [place] [address] Pharmacist Internal Medicine 11/28/22 Kushal Doe MD [facility] Nephrology [address] [place] [address] Nephrology 06/19/24 documented as of this encounter
--- OUTSIDE RECORDS SUMMARY | 2024-09-11 12:12 | XMS_ITS | Encounter Summary ---
Author Organization [facility] Address [address] [phone] Phone Care Team Providers Care Natural Gas Basis Trader Name Role Phone Lula Lopez MD Primary Care Provider Encounter Details Date Type Department Care Team (Late Contact Info) Description 08/24/2024 Orders Only [facility] [address] [phone] Ana Paula Snyder ARNP [address] [phone] Stage 3a chronic kidney disease (HCC); Type 2 diabetes mellitus with diabetic chronic kidney disease (HCC); Hypertension Social History Tobacco Use Types Packs/Day Years Used Date Smoking Tobacco: Never Smokeless Tobacco: Never Alcohol Use Standard Drinks/Week Comments Never 0 (1 standard drink = 0.6 oz pur e alcohol) Sex and Gender Information Value Date Recorded Sex Assigned at Male 04/09/2023 7:37 AM EDT Legal Sex Male 9:34 AM EST Gender Identity Male 04/09/2023 7:37 AM EDT Sexual Orientation Not on file documented as of this encounter Plan of Treatment Upcoming Encounters Date Type Department Care Team (Late Contact Info) Description 09/30/2024 2:30 PM EDT Office Visit [facility] [address] [phone] Ana Paula Snyder ARNP [address] [phone] documented as of this encounter Visit Diagnoses Diagnosis Stage 3a chronic kidney disease (HCC) Type 2 diabetes mellitus with diabetic chronic kidney disease (HCC) Hypertension documented in this encounter Care Teams Natural Gas Basis Trader Relationship Specialty Start Date End Date Lula Lopez MD [address] [place] [address] PCP - General Family Medicine 07/02/24 documented as of this encounter
--- OUTSIDE RECORDS SUMMARY | 2024-09-11 12:12 | XMS_ITS | Encounter Summary ---
Author Organization [employer] Address [address] [facility] 7t [place] [address] Care Team Providers Care Payroll Secretary Name Role Phone Lula Lopez MD Primary Care Provider [phone] Pieter Murguia PharmD Unavailable [phone] Kushal Doe MD Unavailable Reason for Visit * Reason Onset Date Comments Med Refill 07/13/2023 Encounter Details Date Type Department Care Team (Late st Contact Info) Description 07/13/2023 Refill [facility] MEDICINE [address] [place], [place] [phone] Bianka Castrejon MD [address] [place], [place] [phone] Social History Tobacco Use Types Packs/Day Years [...] documented as of this encounter Care Teams Payroll Secretary Relationship Specialty Start Date End Date Lula Lopez MD [address] [place] [address] PCP - General Family Medicine 09/01/22 Pieter Murguia, PharmD [address] [place] [address] Pharmacist Internal Medicine 11/28/22 Kushal Doe MD [facility] Nephrology [address] [place] [address] Nephrology 06/19/24 documented as of this encounter
--- OUTSIDE RECORDS SUMMARY | 2024-09-11 12:12 | XMS_ITS | Encounter Summary ---
Author Organization [employer] Address [address] [facility] 7t [place] [address] Care Team Providers Care Miter Grinder Operator Name Role Phone Lula Lopez MD Primary Care Provider [phone] Pieter Murguia PharmD Unavailable [phone] Kushal Doe MD Unavailable Reason for Visit * Reason Comments Med Refill Encounter Details Date Type Department Care Team (Late st Contact Info) Description 10/11/2023 Refill [facility] 230 [place], [place] [phone] Lula Lopez MD [address] [place], [place] [phone] Primary hypertension Social History Tobacco Use Types Packs/Day Years [...] of this encounter Visit Diagnoses Diagnosis Primary hypertension Unspecified essential hypertension documented in this encounter Additional Health Concerns Assessment Noted Time PHQ-9 Depression Total Score: 2 10/12/19 23 10:24 AM EDT documented as of this encounter Care Teams Miter Grinder Operator Relationship Specialty Start Date End Date Lula Lopez MD [address] [place] [address] PCP - General Family Medicine 09/01/22 Pieter Murguia, PharmD [address] [place] [address] Pharmacist Internal Medicine 11/28/22 Kushal Doe MD [facility] Nephrology [address] [place] [phone] Nephrology 06/19/24 documented as of this encounter
--- OUTSIDE RECORDS SUMMARY | 2024-09-11 12:12 | XMS_ITS | Encounter Summary ---
Author Organization [employer] Address [address] [facility] 7t [place] [address] Care Team Providers Care Regional Agronomist Name Role Phone Lula Lopez MD Primary Care Provider [phone] Pieter Murguia PharmD Unavailable [phone] Kushal Doe MD Unavailable Reason for Visit * Reason Comments Med Refill Encounter Details Date Type Department Care Team (Late st Contact Info) Description 11/21/2023 Refill [facility]EDS [address] [place], [place] [phone] Lula Lopez MD [address] [place], [place] [phone] Social History Tobacco Use Types Packs/Day Years Used Date Smoking Tobacco: Never Passive Smoke Exposure: Never Smokeless Tobacco: Never Alcohol Use Standard Drinks/Week Comments Not Currently 0 (1 standard drink = 0.6 oz pur e alcohol) Depression Answer Date Recorded Patient Health Questionnaire-9 Score 2 10/11/2022 Housing Stability Answer Date Recorded What is your housing situation today? I have ricasommer cantu 05/12/[address] you [...] documented as of this encounter Care Teams Regional Agronomist Relationship Specialty Start Date End Date Lula Lopez MD [address] [place] [address] PCP - General Family Medicine 09/01/22 Pieter Murguia, PharmD [address] [place] [address] Pharmacist Internal Medicine 11/28/22 Kushal Doe MD [facility] Nephrology [address] [place] [address] Nephrology 06/19/24 documented as of this encounter
--- OUTSIDE RECORDS SUMMARY | 2024-09-11 12:12 | XMS_ITS | Encounter Summary ---
Author Organization [employer] Address [address] [facility] 7t [place] [address] Care Team Providers Care Client Service Associate Name Role Phone Lula Lopez MD Primary Care Provider Pieter Murguia PharmD Unavailable [phone] Kushal Doe MD Unavailable Reason for Visit * Reason Comments Med Refill Encounter Details Date Type Department Care Team (Late st Contact Info) Description 10/09/2023 Refill [facility] MED & PEDS [address] [place], [place] [phone] Lula Lopez MD [address] [place], [place] [phone] Social History Tobacco Use Types Packs/Day Years [...] documented as of this encounter Care Teams Client Service Associate Relationship Specialty Start Date End Date Lula Lopez MD [address] [place] [address] PCP - General Family Medicine 09/01/22 Pieter Murguia, PharmD [address] [place] [address] Pharmacist Internal Medicine 11/28/22 Kushal Doe MD [facility] Nephrology [address] [place] [phone] Nephrology 06/19/24 documented as of this encounter
--- OUTSIDE RECORDS SUMMARY | 2024-09-11 12:12 | XMS_ITS | Encounter Summary ---
Author Organization [employer] Address [address] [place] [address] 7[address] [place] [address] Care Team Providers Care Certified Indoor Environmentalist Name Role Phone Lula Lopez MD Primary Care Provider [phone] Pieter Murguia PharmD Unavailable [phone] Kushal Doe MD Unavailable Encounter Details Date Type Department Care Team (Late st Contact Info) Description 04/20/2023 Orders Only [facility] MEDICINE [address] [place], [place] [phone] Lula Lopez MD [address] [place], [place] [phone] Pain of right hip (Primary Dx); Chronic right-sided low back pain, unspecified whether [...] encounter Visit Diagnoses Diagnosis Pain of right hip- Primary Chronic right-sided low back pain, unspecified whether sciatica present documented in this encounter Additional Health Concerns Assessment Noted Time PHQ-9 Depression Total Score: 2 10/12/19 23 10:24 AM EDT documented as of this encounter Care Teams Certified Indoor Environmentalist Relationship Specialty Start Date End Date Lula Lopez MD [address] [place] [address] PCP - General Family Medicine 09/01/22 Pieter Murguia, PharmD [address] [place] [address] Pharmacist Internal Medicine 11/28/22 Kushal Doe MD [facility] Nephrology [address] [place] [address] Nephrology 06/19/24 documented as of this encounter
--- OUTSIDE RECORDS SUMMARY | 2024-09-11 12:12 | XMS_ITS | Clinical Summary ---
Author Organization [employer] Address [address] [place] [address] [address] [place] [address] Care Team Providers Care Visitor Service Assistant Name Role Phone Lula Lopez MD Primary Care Provider [phone] Pieter Murguia PharmD Unavailable [phone] Kushal Doe MD Unavailable Allergies Active Allergy Reactions Criticality Noted Date Comments Ezetimibe 06/14/2019 Other reaction(s): itchy throat, itchy throat Other reaction(s): itchy throat Lactose Intolerance (Gi) Unknown 10/11/2022 Medications aspirin 81 MG EC tablet Take 1 tablet by mouth 1 (one) time each day. 03/15/20 21 Active tamsulosin (Flomax) 0.4 MG 24 hr capsule Take 2 capsules by mouth daily 06/11/20 22 Active Blood Glucose Monitoring Suppl (FreeStyle Lite) w/Device kitIndications:T ype 2 diabetes mellitus with hyperglycemia, without long-term current use of insulin ([facility]) 1 each in the morning. 1 kit 08/09/19 23 Active FREESTYLE LITE test stripIndications :Type 2 diabetes mellitus with hyperglycemia, without long-term current use of insulin ([facility]) Use as instructed 100 each 12 08/09/19 23 Active Blood Pressure kitIndications:Elvin nguyễn hypertension Check blood pressure daily as directed 1 kit 11/26/19 23 Active cholecalciferol (Vitamin D-3) 50 MCG (2000 UT) tablet Take 1 tablet (50 mcg) by mouth in the morning. 90 tablet 1 01/06/20 23 Active isosorbide mononitrate ER (Imdur) 30 MG 24 hr tablet TAKE 1 TABLET BY MOUTH DAILY 12/15/19 23 Active Multiple Vitamin (multivitamin) tablet Take 1 tablet by mouth in the morning. 90 tablet 3 02/15/20 23 Active lidocaine (Lidoderm) 5 % patch Apply 1 patch topically in the morning. Remove & discard patch within 12 hours or as directed by MD. 30 patch 11 02/15/20 23 Active cyclobenzaprine (Flexeril) 5 MG tablet Take 1 tablet (5 mg) by mouth if needed at bedtime for muscle spasms. 90 tablet 3 08/30/19 24 Active apixaban (Eliquis) 2.5 MG tablet Take 1 tablet (2.5 mg) by mouth 2 times daily. 180 tablet 3 09/04/19 24 Active furosemide (Lasix) 20 MG tabletIndication s:Primary hypertension TAKE 2 TABLETS(40 MG) BY MOUTH IN THE MORNING 60 tablet 11 09/25/19 24 Active carvedilol (Coreg) 12.5 MG tablet TAKE 1 TABLET BY MOUTH TWICE DAILY 180 tablet 1 05/30/20 24 Active Dulaglutide (Trulicity) 1.5 MG/0.5ML solution auto-injectorInd ications:Type 2 diabetes mellitus with peripheral angiopathy (CMS/HCC) Inject 0.5 mL (1.5 mg) under the skin 1 (one) time per week. 0.5 mL 3 06/18/20 24 Active Jardiance 10 MG Take 10 mg by mouth in the morning. 07/02/20 24 025 Active finasteride (Proscar) 5 MG tablet TAKE 1 TABLET BY MOUTH EVERY MORNING 90 tablet 1 07/22/20 24 Active traMADol (Ultram) 50 MG tabletIndication s:Pain of right hip,Chronic right-sided low back pain, unspecified whether sciatica present Take 1 tablet (50 mg) by mouth if needed at bedtime for severe pain. 30 tablet 07/22/20 24 Active atorvastatin (Lipitor) 40 MG tablet TAKE 1 TABLET(40 MG) BY MOUTH IN THE MORNING 30 tablet 11 08/13/19 25 Active amLODIPine (Norvasc) 10 MG tabletIndication s:Primary hypertension TAKE 1 TABLET(10 MG) BY MOUTH IN THE MORNING 90 tablet 3 08/21/19 25 Active oxybutynin XL (Ditropan XL) 5 MG 24 hr tablet Take 1 tablet (5 mg) by mouth Once per day. Do not crush, chew, or split. 30 tablet 11 09/11/19 25 026 Active atorvastatin (Lipitor) 40 MG tablet Take 1 tablet (40 mg) by mouth in the morning. 30 tablet 11 09/04/19 24 025 Discontinued amLODIPine (Norvasc) 10 MG tabletIndication s:Primary hypertension TAKE 1 TABLET(10 MG) BY MOUTH IN THE MORNING 90 tablet 3 10/23/19 24 025 Discontinued Active Problems Problem Noted Date Diagnosed Date Urinary urgency 09/11/2024 Tremor 06/18/2024 Assessment & Plan (06/18/2024 9:39 AM EST): Pt's daughter c/o new onset of tremor on his hands, and forgetfulness. Plan: Neurology referral Diabetes mellitus, type 2 09/04/2023 Assessment & Plan (09/04/2023 12:41 PM EST): -A1c 6.3% on 08/30/23, improved from 7.1% on 02/14/23. - Continue working on lifestyle modifications - Continue checking glucose: three times daily, at least fasting and 2 hour postprandial of the largest meal of the day - Continue metformin 500 mg bid (acceptable for his CKDIII), consider changing to ER - Continue Farxiga 5 mg daily (checked with pt's pharmacy and Jardiance also costs $47; discussed with pt's daughter and they agree to continue Farxiga) - Continue Trulicity 0.75 mg weekly, and titrate up - Discontinue glipizide - Discontinued basal insulin Tx History: -discontinuing basal insulin (started when he was in the hospital in Jul 2022) -discontinuing glipizide due to hypoglycemia - Microalbumin test: 04/19/22 Albuminuria - Lipid profile: 10/11/22, TC 179, TG 158, HDL 83, LDL 72 - Diabetic eye exam: No record available yet - Foot exam: 08/30/23 Follow up in 3 mo Pain of right hip 04/17/2023 Assessment & Plan (09/04/2023 12:39 PM EST): -XR showed mild OA in R hip and severe degenerative change in lumbar spine -continue cyclobenzaprine as needed -continue tramadol as needed -continue lido-derm patch -continue acetaminophen Assessment & Plan (04/17/2023 4:25 PM EDT): -Will evaluate with XR -Extend Prednisone tx and taper down over 6 days -continue flexeril as needed, discussed about potential side-effects -continue lido-derm patch -continue acetaminophen Syncope 11/12/2022 Assessment & Plan (02/17/2023 1:27 PM EDT): -MRI in Aug 2022 shoed old lacunar infarct -?vascular dementia; 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 Calderón in December 2022, upcoming appt Assessment & Plan (11/12/2022 7:17 AM EDT): - Aug 2022, associated with COVID19 - Pt was seen by electrical maintenance mechanic and Holter monitor was ordered Chronic heart failure with preserved ejection fr action 11/12/2022 Assessment & Plan (09/11/2024 6:14 AM EST): - last TTE on 09/15/22 --moderately dilated LA --mild pulmonary HTN (systolic 42 plus RAP) --normal right ventricle size and function. --normal left ventricular size and systolic function, with mild concentric left ventricular hypertrophy. -- left ventricular ejection fraction is 65-70 %. - Nuclear stress test on 12/13/22 EF 65% - optimizing medical management: ASA; carvedilol; SGLT-2 inhibitor; furosemide; rosuvastatin Assessment & Plan (09/04/2023 12:24 PM EST): - last TTE on 09/15/22 --moderately dilated LA --mild pulmonary HTN (systolic 42 plus RAP) --normal right ventricle size and function. --normal left ventricular size and systolic function, with mild concentric left ventricular hypertrophy. -- left ventricular ejection fraction is 65-70 %. - Nuclear stress test on 12/13/22 EF 65% - optimizing medical management: ASA; carvedilol; SGLT-2 inhibitor; furosemide; rosuvastatin Assessment & Plan (02/17/2023 1:19 PM EDT): - last TTE on 09/15/22 --moderately dilated LA --mild pulmonary HTN (systolic 42 plus RAP) --normal right ventricle size and function. --normal left ventricular size and systolic function, with mild concentric left ventricular hypertrophy. -- left ventricular ejection fraction is 65-70 %. - Nuclear stress test on 12/13/22 EF 65% - optimizing medical management: ASA; carvedilol; SGLT-2 inhibitor; furosemide; rosuvastatin Assessment & Plan (11/12/2022 7:41 AM EDT): - last TTE on 09/15/22 --moderately dilated LA --mild pulmonary HTN (systolic 42 plus RAP) --normal right ventricle size and function. --normal left ventricular size and systolic function, with mild concentric left ventricular hypertrophy. -- left ventricular ejection fraction is 65-70 %. - optimizing medical management: ASA; carvedilol; SGLT-2 inhibitor; furosemide; rosuvastatin Type 2 diabetes mellitus wit h stage 3 chronic kidney disease, without long-term current use of insulin 11/09/2022 Assessment & Plan (09/04/2023 12:36 PM EST): -A1c 6.3% on 08/30/23, 7.1% on 02/14/23. - Continue working on lifestyle modifications - Continue checking glucose: three times daily, at least fasting and 2 hour postprandial of the largest meal of the day - Continue metformin 500 mg bid (acceptable for his CKDIII), consider changing to ER - Continue Farxiga 5 mg daily (checked with pt's pharmacy and Jardiance also costs $47; discussed with pt's daughter and they agree to continue Farxiga) - Discontinue glipizide XL 2.5 mg once daily, consider discontinuing glipizide. Can change to regular - Continue Trulicity 0.75 mg weekly, and titrate up - Discontinued basal insulin Tx History: -discontinuing basal insulin (started when he was in the hospital in Jul 2022) - Microalbumin test: 04/19/22 Albuminuria - Lipid profile: 10/11/22, TC 179, TG 158, HDL 83, LDL 72 - Diabetic eye exam: No record available yet - Foot exam: 08/30/23 high-risk Follow up in 3 mo Assessment & Plan (02/17/2023 1:22 PM EDT): - follow up with jig box operator as scheduled - on low dose SGLT-2 inhibitor Assessment & Plan (11/12/2022 7:23 AM EDT): - follow up with jig box operator as scheduled - on low dose SGLT-2 inhibitor Primary hypertension 10/11/2022 Assessment & Plan (06/18/2024 4:45 PM EST): Patient of Dr. Lopez here for a sick visit. - Goal BP <140/90 per JNC-8, < 130/80 per ACC/AHA guideline - BP controlled Hx of issues with medication adherence due to difficulty affording medications co-managed with jig box operator, electrical maintenance mechanic, and pharmacist On: Carvediolol 12.5 mg bid, alternating furosemide 40 mg every other day and 20 mg every other day, Amlodipine 10mg daily Obtain BMP, will make sure patient has a follow up with Renal. - treatment hx: Previously on hydrochlorothiazide, losratan, and furosemide which were discontinued during the hospitalization for COVID in Jul 2022. Restarted furosemide. Still off losartan. -continue working on lifestyle modifications - follow up in 3 mo or sooner prn Assessment & Plan (09/04/2023 12:26 PM EST): - Goal BP <140/90 per JNC-8, < 130/80 per ACC/AHA guideline - BP at goal today. Improved medication adherence despite difficulty affording these medications - co-managed with jig box operator, electrical maintenance mechanic, and pharmacist - continue carvediolol 12.5 mg bid - continue alternating furosemide 40 mg every other day and 20 mg every other day - continue Amlodipine 10mg daily at this time; consider tapering down and off due to lower extremity edema (although it is beneficial for his Raynaud's syndrome - consider re-starting losartan - treatment hx: Previously on hydrochlorothiazide, losratan, and furosemide which were discontinued during the hospitalization for COVID in Jul 2022. Restarted furosemide. Still off losartan. -continue working on lifestyle modifications - follow up in 3 mo or sooner prn Assessment & Plan (02/17/2023 1:17 PM EDT): - Goal BP <140/90 per JNC-8, < 130/80 per ACC/AHA guideline - BP at goal today. Improved medication adherence despite difficulty affording these medications - co-managed with jig box operator, electrical maintenance mechanic, and pharmacist - continue carvediolol 12.5 mg bid - continue alternating furosemide 40 mg every other day and 20 mg every other day - continue Amlodipine 10mg daily at this time; consider tapering down and off due to lower extremity edema (although it is beneficial for his Raynaud's syndrome - consider re-starting losartan - treatment hx: Previously on hydrochlorothiazide, losratan, and furosemide which were discontinued during the hospitalization for COVID in Jul 2022. Restarted furosemide. Still off losartan. -continue working on lifestyle modifications - follow up in 3 mo or sooner prn Assessment & Plan (11/12/2022 7:29 AM EDT): - Goal BP <140/90 per JNC-8, < 130/80 per ACC/AHA guideline - BP not at goal today. Hx of medication non-adherence. - continue carvediolol 12.5 mg bid - increase furosemide 40 mg daily - continue Amlodipine 10mg daily at this time; consider tapering down and off due to lower extremity edema (although it is beneficial for his Raynaud's syndrome - consider re-starting losartan - treatment hx: Previously on hydrochlorothiazide, losratan, and furosemide which were discontinued during the hospitalization for COVID in Jul 2022. -continue working on lifestyle modifications -referred to [facility] - HTN -check renal panel in 2 weeks - follow up in 3 mo or sooner Assessment & Plan (10/11/2022 11:02 PM EDT): - Goal BP <140/90 per JNC-8, < 130/80 per ACC/AHA guideline - BP not at goal today. Hx of medication non-adherence. - continue carvediolol 12.5 mg bid - add furosemide 20 mg daily - continue Amlodipine 10mg daily at this time; consider tapering down and off due to lower extremity edema (although it is beneficial for his Raynaud's syndrome - consider re-starting losartan - treatment hx: Previously on hydrochlorothiazide, losratan, and furosemide which were discontinued during the hospitalization for COVID in Jul 2022. 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 -continue encourage social interaction / activity with family and community -avoid [employer] depressants and anticholinergic medications Urinary incontinence 10/11/2022 Assessment & Plan (09/04/2023 12:53 PM EST): - multifactorial - BPH, Hx CVA, and difficulty ambulating to the bathroom - refer to urologist - continue tamsulosin and finasteride - consider oxybutynin for neurolgenic bladder Assessment & Plan (11/10/2022 12:16 PM EDT): - multifactorial - BPH, Hx CVA, and difficulty ambulating to the bathroom - refer to urologist - continue tamsulosin and finasteride - consider oxybutynin for neurolgenic bladder Assessment & Plan (10/11/2022 11:07 PM EDT): - multifactorial - BPH, Hx CVA, and difficulty ambulating to the bathroom - refer to urologist - continue tamsulosin and finasteride - consider oxybutynin for neurolgenic bladder Chronic low back pain 10/11/2022 Overview (06/28/2023): Last Assessment & Plan: -Previously referred to PT in 2021 and 2020 -Tried lidocaine patch, APAP, and gabapentin -will refer back to providers at [facility], as requested -Continue applying heat, gentle massage, acetaminophen prn -Currently at maximum dosage of gabapentin for his renal function; continue with caution -work on lifestyle modifications Assessment & Plan (10/11/2022 11:12 PM EDT): -Previously referred to PT in 2021 and 2020 -Tried lidocaine patch, APAP, and gabapentin -will refer back to providers at [facility], as requested -Continue applying heat, gentle massage, acetaminophen prn -Currently at maximum dosage of gabapentin for his renal function; continue with caution -work on lifestyle modifications Disturbance in sleep behavior 10/11/2022 Overview (06/28/2023): Last Assessment & Plan: - 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 prior Dx atrial fibrillation, currently on Eliquis for DVT - refer to sleep medicine clinic Assessment & Plan (09/11/2024 6:13 AM EST): - question of prior Dx atrial fibrillation, - started on Eliquis for DVT in 2021 - sleep study in January 2023 did not show significant ROSALIND, but showed borderline hypoxemia - follow up with specialist as scheduled - consider overnight oximetry and oxygen supplementation if indicated. Assessment & Plan (09/04/2023 12:24 PM EST): - question of prior Dx atrial fibrillation, - started on Eliquis for DVT in 2021 - sleep study in January 2023 did not show significant ROSALIND, but showed borderline hypoxemia - follow up with specialist as scheduled - consider overnight oximetry and oxygen supplementation if indicated. Assessment & Plan (10/11/2022 11:21 PM EDT): - ? prior Dx atrial fibrillation, currently on Eliquis for DVT - refer to sleep medicine clinic History of deep venous thrombosis 10/11/2022 Overview (06/28/2023): Last Assessment & Plan: - Dx On 09/15/22. Non-occlusive b/l DVT - Currently taking Eliquis; Continue at least 3 mo - may need a longer duration at lower dose if pt is considered to have paroxysmal atrial fibrillation (daughter mentioned he was diagnosed with atrial fibrillation once) Assessment & Plan (11/10/2022 12:08 PM EDT): - Dx On 09/15/22. Non-occlusive b/l DVT - Currently taking Eliquis; Continue at least 3 mo - may need a longer duration at lower dose if pt is considered to have paroxysmal atrial fibrillation (daughter mentioned he was diagnosed with atrial fibrillation once) Assessment & Plan (10/11/2022 11:18 PM EDT): - Dx On 09/15/22. Non-occlusive b/l DVT - Currently taking Eliquis; Continue at least 3 mo - may need a longer duration at lower dose if pt is considered to have paroxysmal atrial fibrillation (daughter mentioned he was diagnosed with atrial fibrillation once) Dyslipidemia 10/11/2022 Assessment & Plan (09/04/2023 12:42 PM EST): - lipid profile on 10/11/22, TC 179; TG 158; HDL 83; LDL 72 - current medication: Rosuvastatin 20 mg at bedtime (acceptable dose for his renal function) - treatment history: Previously tried ezetimibe; it was discontinued due to adverse reaction - continue rosuvastatin with caution; consider lowering dose when his renal function worsens or changing to atorvastatin now - continue working on lifestyle modification Assessment & Plan (02/17/2023 1:25 PM EDT): - lipid profile on 10/11/22, TC 179; TG 158; HDL 83; LDL 72 - current medication: Rosuvastatin 20 mg at bedtime (acceptable dose for his renal function) - treatment history: Previously tried ezetimibe; it was discontinued due to adverse reaction - continue rosuvastatin with caution; consider lowering dose when his renal function worsens or changing to atorvastatin now - continue working on lifestyle modification Assessment & Plan (11/10/2022 12:17 PM EDT): - lipid profile on 10/11/22, TC 179; TG 158; HDL 83; LDL 72 - current medication: Rosuvastatin 20 mg at bedtime (acceptable dose for his renal function) - treatment history: Previously tried ezetimibe; it was discontinued due to adverse reaction - continue rosuvastatin with caution; consider lowering dose when his renal function worsens or changing to atorvastatin now - continue working on lifestyle modification Assessment & Plan (10/11/2022 11:24 PM EDT): - lipid profile on 04/19/22 TC 134; HDL 54; LDL 62; TG 124 - current medication: Rosuvastatin 20 mg at bedtime (acceptable dose for his renal function) - treatment history: Previously tried ezetimibe; it was discontinued due to adverse reaction - continue rosuvastatin with caution; consider lowering dose when his renal function worsens or changing to atorvastatin now - continue working on lifestyle modification Stage 3b chronic kidney disease 10/11/2022 Assessment & Plan (09/04/2023 1:06 PM EST): - December 2022 eGFR 34, - 09/2022 eGFR 43; Creatinine Clearance > 45 - currently on metformin 500 mg bid and rosuvastatin 20 mg at bedtime - furosemide to 40 mg every other day, alternating with 20 mg every other day - on farxiga 5 mg daily - discontinued gabapentin - monitor renal function - will change rosuvastatin to atorvastatin - decrease apixaban dose Assessment & Plan (02/17/2023 1:20 PM EDT): - 09/2022 eGFR 43; Creatinine Clearance > 45 - currently on metformin 500 mg bid, gabapentin 300 mg tid, and rosuvastatin 20 mg at bedtime - furosemide to 40 mg every other day, alternating with 20 mg every other day - on farxiga 5 mg daily - monitor renal function - may need to change rosuvastatin to atorvastatin soon Assessment & Plan (11/12/2022 7:27 AM EDT): - 09/2022 eGFR 43; Creatinine Clearance > 45 - currently on metformin 500 mg bid, gabapentin 300 mg tid, and rosuvastatin 20 mg at bedtime - increasing furosemide to 40 mg daily - on farxiga 5 mg daily - monitor renal function - may need to change rosuvastatin to atorvastatin soon Assessment & Plan (10/11/2022 11:29 PM EDT): - Mar 2021 eGFR 41; BUN 31; Scr 1.57 - currently on metformin 500 mg bid, gabapentin 300 mg tid, and rosuvastatin 20 mg at bedtime - restarting on furosemide 20 mg daily - starting on farxiga 5 mg daily - monitor renal function Benign prostatic hyperplasia with lower urinary tract symptoms 09/17/2022 Assessment & Plan (02/17/2023 1:22 PM EDT): - evaluated by urologist, [facility] [place], last seen in December 2022 - continue finasteride and tamsulosin; continue Assessment & Plan (11/12/2022 7:24 AM EDT): - currently on finasteride and tamsulosin; continue - upcoming appt with urologist - last PSA 0.38 in September 2022 - pt is on diuretic and has DM; optimize glycemic control Assessment & Plan (10/11/2022 11:34 PM EDT): - currently on finasteride and tamsulosin; continue - last PSA 0.58 in Mar 2021 - check PSA, UCx, and UA - refer back to urologist Repeated falls 09/17/2022 Muscle weakness (generalized) 09/17/2022 Contrast-induced nephropathy (CODE) 09/17/2022 Vitamin deficiency 09/17/2022 06/28/2023 Type 2 diabetes mellitus with peripheral angiopa thy 08/12/2021 Assessment & Plan (06/18/2024 9:56 AM EST): A1c 6.3% on 06/18/24. Pt here for a follow up, stopped Metformin 2 weeks ago due to concerns of side effects. He tells me he was feeling like Metformin was causing him a number of side effects that since he stopped the Metformin 2 weeks ago.pt reported bloating, joint pain. Went away after stopping Reviewed Glucometer, FBS ranging between 159 and 201. A1c still within range since he just stopped metformin recently, but I can see his FBS are going up. Plan: Increase Trulicity to 1.5 mg weekly, and titrate up if need be. Continue Farxiga 5 mg daily Tx History: -discontinuing basal insulin (started when he was in the hospital in Jul 2022) - Microalbumin test: 04/19/22 Albuminuria - Lipid profile: 10/11/22, TC 179, TG 158, HDL 83, LDL 72 - Diabetic eye exam: No record available yet - Foot exam: 08/30/23 high-risk Follow up in 3 months with PCP Assessment & Plan (11/12/2022 7:16 AM EDT): - continue risk factor management Ischemic heart disease 06/24/2021 Assessment & Plan (09/04/2023 12:25 PM EST): - s/p PCI in 2002 at [facility] in [place] - s/p PCI to RCA in [address] [facility] - 12/13/22 Nuclear stress test normal; EF 65% - Followed by electrical maintenance mechanic, Dr. Faust, last seen in November 2022, given reassurance - Optimize risk factor management - Currently on ASA and DOAC Assessment & Plan (02/17/2023 1:18 PM EDT): - s/p PCI in 2002 at [facility] - s/p PCI to RCA in [address] [facility] - 12/13/22 Nuclear stress test normal; EF 65% - Followed by electrical maintenance mechanic, Dr. Faust, last seen in November 2022, given reassurance - Optimize risk factor management Assessment & Plan (11/12/2022 7:35 AM EDT): - s/p PCI in 2002 at [facility] - s/p PCI to RCA in [address] [facility] - Followed by electrical maintenance mechanic, Dr. Faust, last seen in September 2022 Hypertension associated with stage 3 chronic kidney disease due to type 2 diabetes mellitus 06/24/2021 Resolved Problems Problem Noted Date Diagnosed Date Resolved Date Long-term insulin use 11/12/20222022 Urinary frequency 10/11/2022 11/12/2022 Memory problem 10/11/2022 11/12/2022 Type 2 diabetes mellitus wit h hyperglycemia, with long-term current use of insulin 10/09/2022 Assessment & Plan (04/17/2023 4:22 PM EDT): -A1c 7.1% on 02/14/23. - Continue working on lifestyle modifications - Continue checking glucose: three times daily, at least fasting and 2 hour postprandial of the largest meal of the day - Continue metformin 500 mg bid (acceptable for his CKDIII), consider changing to ER - Continue Farxiga 5 mg daily (checked with pt's pharmacy and Jardiance also costs $47; discussed with pt's daughter and they agree to continue Farxiga) - Continue glipizide XL 2.5 mg once daily, consider discontinuing glipizide. Can change to regular - Continue Trulicity 0.75 mg weekly, and titrate up - Discontinued basal insulin Tx History: -discontinuing basal insulin (started when he was in the hospital in Jul 2022) - Microalbumin test: 04/19/22 Albuminuria - Lipid profile: 10/11/22, TC 179, TG 158, HDL 83, LDL 72 - Diabetic eye exam: No record available yet - Foot exam: 10/11/22 high-risk Follow up in 3 mo Assessment & Plan (02/17/2023 1:24 PM EDT): -A1c 7.1% on 02/14/23. - Continue working on lifestyle modifications - Continue checking glucose: three times daily, at least fasting and 2 hour postprandial of the largest meal of the day - Continue metformin 500 mg bid (acceptable for his CKDIII), consider changing to ER - Continue Farxiga 5 mg daily (checked with pt's pharmacy and Jardiance also costs $47; discussed with pt's daughter and they agree to continue Farxiga) - Continue glipizide XL 2.5 mg once daily, consider discontinuing glipizide. Can change to regular - Continue Trulicity 0.75 mg weekly, and titrate up - Discontinued basal insulin Tx History: -discontinuing basal insulin (started when he was in the hospital in Jul 2022) - Microalbumin test: 04/19/22 Albuminuria - Lipid profile: 10/11/22, TC 179, TG 158, HDL 83, LDL 72 - Diabetic eye exam: No record available yet - Foot exam: 10/11/22 high-risk Follow up in 3 mo Assessment & Plan (11/12/2022 7:22 AM EDT): -A1c 7.6% (venous) and 7.2%(capillary) on 10/11/22 - Continue working on lifestyle modifications - Continue checking glucose: three times daily, at least fasting and 2 hour postprandial of the largest meal of the day - Continue metformin 500 mg bid (acceptable for his CKDIII), consider changing to ER - Continue Farxiga 5 mg daily (checked with pt's pharmacy and Jardiance also costs $47; discussed with pt's daughter and they agree to continue Farxiga) - Continue glipizide XL 2.5 mg once daily, 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 Can change to regular - Start Trulicity 0.75 mg weekly, and titrate up - Discontinue basal insulin Tx History: -discontinuing basal insulin (started when he was in the hospital in Jul 2022) - Microalbumin test: 04/19/22 Albuminuria - Lipid profile: 10/11/22, TC 179, TG 158, HDL 83, LDL 72 - Diabetic eye exam: No record available yet - Foot exam: 10/11/22 high-risk Assessment & Plan (10/11/2022 10:56 PM EDT): -A1c 7.6% on 10/11/22 - Continue working on lifestyle modifications - Continue checking glucose: three times dailiy - Continue metformin ER 500 mg bid (acceptable for his CKDIII) - Continue basal insulin 10 units daily - Add Farxiga 5 mg daily for cardiorenal benefit - Consider discontinuing glipizide - Consider starting GLP-1 agonist and taper off some of his medications - Microalbumin test: 04/19/22 Albuminuria - Lipid profile: 04/19/22 Updating - Diabetic eye exam: No record available yet - Foot exam: 10/11/22 high-risk Acute embolism and thrombosi s of unspecified deep veins of lower extremity, bilateral 09/17/2022 11/12/2022 Hypertensive urgency 09/17/2022 024 Aneurysm of ascending aorta 06/24/2021 11/12/2022 Encounters Date Type Department Care Team Description 09/11/2024 10:30 AM EST Office Visit [facility] [address] [place] [phone] Lula Lopez MD Primary hypertension (Primary Dx); Ischemic heart disease; [...] sciatica present; Atrial premature complex; Urinary urgency 09/11/2024 Travel 09/10/[address] [address] Xin Ashton [place] chart prep 08/21/2024 Refill [facility] [address] [place] [address] Lula Lopez MD Primary hypertension 08/11/2024 Refill [facility] [place] [phone] Lula Lopez MD 07/21/2024 Refill [facility] [place] [phone] Lula Lopez MD Primary hypertension 07/20/2024 Refill [facility] [place] [address] Lula Lopez MD Primary hypertension; Pain of right hip; Chronic right-sided low back pain, unspecified whether sciatica present 07/05/2024 3:30 PM EST Telemedicine [facility] [place] [address] Pieter Murguia, PharmD Primary hypertension (Primary Dx) 06/25/2024 Telephone [facility] [phone] Nick Mckinley MD 06/19/2024 Telephone [facility] [phone] Julianna Olsen, RN Results 06/18/2024 9:15 AM EST Office Visit [facility] [place] [phone] Nick Mckinley MD Type 2 diabetes mellitus with peripheral angiopathy (CMS/HCC) (Primary Dx); Primary hypertension; Type 2 diabetes mellitus with stage 3b chronic kidney disease, without long-term current use of insulin (CMS/HCC); Tremor; Encounter for immunization; Hypertension associated with stage 3 chronic kidney disease due to type 2 diabetes mellitus (CMS/HCC) 06/18/2024 Travel 06/17/2024 Telephone [facility] [place] [address] Lula Lopez MD Nurse Triage from Last 3 Months Immunizations Name Administration Dates Next Due Influenza High-dose Quadriva lent Preservative Free 07/01/2023,06/24/2022,04/19/2021 Influenza, High Dose Seasona l, Preservative Free 06/18/2024 Influenza, IIV3, injectable 06/24/2022 Moderna Covid-19 Vaccine 12+ 11/04/2021, 06/29/2021,11/18/2020,10/20 Pfizer Covid-19 Vaccine 12+ 06/18/2024 Pfizer Covid-19 Vaccine 12+ Bivalent 10/11/2022 Pneumococcal Conjugate PCV 13 04/19/2021 Pneumococcal Polysaccharide PPSV23 08/09/2022 Tdap 04/19/2021 Zoster, Recombinant 12/08/2021,09/29/2021 Social History Tobacco Use Types Packs/Day Years [...] Orientation Straight 01/05/2023 3: 34 PM EDT Last Filed Vital Signs Vital Sign Reading [...] 3.2 oz) 09/11/2024 10:55 AM EST Height 165.5 cm (5' 5.16 ) 02/14/2023 10:35 AM E DT Body Mass Index 30.34 02/14/2023 10:35 AM EDT Plan of Treatment Health Maintenance Due Date Last Done Comments Eye Exam 1950 RSV Patients and Patients Aged 60 years or older (1 - 1-dose 75+ series) 2014 Depression Screening 10/12/2023 10/11/2022, 10/12/19 23 Diabetes: Foot Exam 08/30/2024 08/30/2023, 08/30/2023, 08/30/2023, Additional history exists Tobacco Screening 08/30/2024 08/30/2023 Lipid Panel 10/10/2024 10/11/2023, 09/22, 04/19/2021 Diabetes: Hemoglobin A1C 12/16/2024 024, 08/30/2023, 02/14/2023, Additional history exists Alcohol/Substance Use Screening 09/11/2025 09/11/2024 SDOH Screening 09/11/2025 09/11/2024 DTaP/Tdap/Td Vaccines (2 - Td or Tdap) 04/19/2031 04/19/2021 Zoster Vaccines Completed 12/08/2021, 09/29/2021 Pneumococcal Vaccine: 50+ Years Completed 08/09/2022, 04/19/2021 COVID-19 Vaccine Completed 06/18/2024, , 11/04/2021, Additional history exists Influenza Vaccine Completed 06/18/2024, , 06/24/2022, Additional history exists HIB Vaccines Aged Out No longer eligi ble based on patient's age to complete this topic HPV Vaccines Aged Out No longer eligi ble based on patient's age to complete this topic Hepatitis A Vaccines Aged Out No long er eligible based on patient's age to complete this topic Hepatitis B Vaccines Aged Out No long er eligible based on patient's age to complete this topic IPV Vaccines Aged Out No longer eligi ble based on patient's age to complete this topic Meningococcal Vaccine Aged Out No danyelle regan eligible based on patient's age to complete this topic RSV under 20 months Aged Out No longe r eligible based on patient's age to complete this topic Rotavirus Vaccines Aged Out No longer eligible based on patient's age to complete this topic Goals Goal Patient Goal Type Associated Problems Recent Progress Patient-Stated? Author Blood Pressure < 140/90 Blood Pressure 140/70( 025 11:18 AM EST) No Pieter Murguia, Ramón Procedures Procedure Name Priority Date/Time Associated Diagnosis Comments COMPREHENSIVE METABOLIC PANEL Routine 06/18/2024 10:17 AM EST Type 2 diabetes mellitus with stage 3b chronic kidney disease, without long-term current use of insulin ([facility]) POCT GLYCATED HEMOGLOBIN, TOTAL Routine 06/18/2024 9:29 AM EST Type 2 diabetes mellitus with stage 3b chronic kidney disease, without long-term current use of insulin ([facility]) POCT GLUCOSE Routine 06/18/2024 9:25 AM EST Type 2 diabetes mellitus with stage 3b chronic kidney disease, without long-term current use of insulin ([facility]) LIPID PANEL WITH REFLEX TO DIRECT LDL Routine 10/11/2023 11:18 AM EDT Type 2 diabetes mellitus with stage 3b chronic kidney disease, without long-term current use of insulin ([facility]) from Last 3 Months or Most Recently Relevant to Health Maintenance Results * (ABNORMAL) Comprehensive Metabolic Panel (06/18/2024 10:17 AM EST) Sodium 135 135 - 145 mmol/L [facility] Potassium 4.3 3.3 - 5.1 mmol/L [facility] Chloride 104 96 - 108 mmol/L [facility] Carbon Dioxide 24 22 - 29 mmol/L [facility] Anion Gap 11(L) 12 - 20 [facility] Urea Nitrogen (BUN) 30(H) 9 - 16 mg/dL [facility] Creatinine, Serum 2.15(H) 0.5 - 1.4 mg/dL [facility] Estimated Glomerular Filt Rate 29 [facility] Comment:Chronic Kidney Disea se: Estimated GFR < 60 mL/min/[id number] Kidney Disease: Estimated GFR < 15 mL/min/1.73m2 Glucose 182(H) 60 - 115 mg/dL [facility] Calcium 9.1 8.4 - 10.2 mg/dL [facility] Bilirubin, Total 0.5 0.0 - 1.0 mg/dL [facility] Aspartate Amino Transferase 16 5 - 37 U/L [facility] Alanine Aminotransferase 18 0 - 40 U/L [facility] Total Protein 7.0 6.5 - 8.0 g/dL [facility] Albumin Level 3.9 3.5 - 5.0 g/dL [facility] Alkaline Phosphatase 76 39 - 117 U/L [facility] Blood Venous blood specimen / Unknown 06/18/2024 10:17 AM EST 06/18/2024 11:47 AM EST Nick Gates MD LAB BLOOD ORDERABLES Final Result [facility] [address] [place] [phone] * (ABNORMAL) POCT HGB A1C (06/18/2024 9:29 AM EST) Hemoglobin A1C 6.3(A) 4.0 - 6.0 % QC Media Lot # [id number] Lot# Expiration Date ,835,026 Blood 06/18/2024 9:29 AM EST Nick Gates MD POINT OF CARE TEST EN TER/EDIT ORDERABLES Final Result * POCT Glucose (06/18/2024 9:25 AM EST) Glucose Blood, POC 200 60 - 200 mg/dL Comment:Random QC Media Lot # [id number] Lot# Expiration Date , Blood Capillary blood specimen / Unknown 06/18/2024 9:25 AM EST us Nick Gates MD POINT OF CARE TEST EN TER/EDIT ORDERABLES Final Result * Lipid Panel with Reflex to Direct LDL (10/11/2023 11:18 AM EDT) Triglycerides 119 <150 mg/dL [facility] Comment:Desirable Triglyceri de: less than 150 mg/dLBorderline High Triglyceride 150-199 mg/dLHigh Triglyceride: 200-499 mg/dLVery High Triglyceride: greater than or equal to 5OO mg/dL Cholesterol 153 <200 mg/dL [facility] Comment:Desirable Cholestero l: less than 200 mg/dLBorderline High Cholesterol: 200-239 mg/dLHigh Cholesterol: greater than 239 mg/dL LDL Cholesterol Calculated 61 <100 mg/dL [facility] Comment:Desirable LDL: less than 100 mg/dLNear Optimal/Above Optimal LDL: 110- 129 mg/dLBorderline High LDL: 130-159 mg/dLHigh LDL: 160-189 mg/dLVery High LDL: greater than or equal to 190 mg/dL HDL Cholesterol 69 >40 mg/dL [facility] Comment:Desirable HDL: great er than 40 mg/dL Note: This HDL assay may give artificially low results in patients with liver disease. Blood 10/11/2023 11:1 8 AM EDT 10/11/2023 1:22 PM EDT us Lula Lopez MD LAB BLOOD ORDERABLES Final Resul t [facility] [address] [place] [phone] from Last 3 Months or Most Recently Relevant to Health Maintenance Insurance MEDICARE ADVANTAGE HMO [facility] F[facility] Care Teams Visitor Service Assistant Relationship Specialty Start Date End Date Lula Lopez MD [address] [place] [phone] PCP - General Family Medicine 09/01/22 Pieter Murguia, PharmD [address] [place] [phone] Pharmacist Internal Medicine 11/28/22 Kushal Doe MD [facility] [address] [place] [address] Nephrology 06/19/24
--- OUTSIDE RECORDS SUMMARY | 2024-09-11 12:12 | XMS_ITS | Encounter Summary ---
Author Organization [employer] Address [address] [facility] [address] [place] [address] Care Team Providers Care Commercial Photographer Name Role Phone Lula Lopez MD Primary Care Provider [phone] Pieter Murguia PharmD Unavailable [phone] Kushal Doe MD Unavailable Reason for Visit * Reason Onset Date Comments Med Refill 07/13/2023 Encounter Details Date Type Department Care Team (Late st Contact Info) Description 07/13/2023 Refill [facility] [address] [place], [place] [phone] Lula Lopez MD [address] [place], [place] [phone] Social History Tobacco Use Types Packs/Day Years [...] documented as of this encounter Care Teams Commercial Photographer Relationship Specialty Start Date End Date Lula Lopez MD [address] [place] [address] PCP - General Family Medicine 09/01/22 Pieter Murguia, PharmD [address] [place] [address] Pharmacist Internal Medicine 11/28/22 Kushal Doe MD [facility] Nephrology [address] [place] [phone] Nephrology 06/19/24 documented as of this encounter
--- OUTSIDE RECORDS SUMMARY | 2024-09-11 12:12 | XMS_ITS | Clinical Summary ---
Author Organization [facility] Address [address] [address] Phone Care Team Providers Care Life Skills Worker Name Role Phone Lula Lopez MD Primary Care Provider Allergies Active Allergy Reactions Criticality Noted Date Comments Ezetimibe 06/14/2019 Lactose Intolerance (Gi) Other (see comments) 0 12/22/2020 Rosuvastatin 06/14/2019 Medications finasteride (PROSCAR) 5 MG tablet Take 5 mg by mouth 1 (one) time each day 06/19/2021 Active aspirin (ST ELLA) 81 MG EC tablet Take 81 mg by mouth 1 (one) time each day Active Multiple Vitamin (multivitamin) tablet Take 1 tablet by mouth 1 (one) time each day Active tamsulosin (FLOMAX) 0.4 MG 24 hr capsule Take 0.4 mg by mouth 1 (one) time each day Active cholecalciferol (VITAMIN D-3 SUPER STRENGTH) 50 MCG (2000 UT) tablet Take 2,000 Units by mouth 1 (one) time each day Active carvedilol (COREG) 12.5 MG tablet Take 1 tablet (12.5 mg total) by mouth in the morning and 1 tablet (12.5 mg total) in the evening. 180 tablet 3 08/18/2022 Active Dulaglutide (Trulicity) 0.75 MG/0.5ML solution pen-injector Inject 0.75 mg under the skin per week 12/08/2022 Active amLODIPine (NORVASC) 10 MG tablet Take 1 tablet by mouth 1 (one) time each day 11/23/2022 Active apixaban (ELIQUIS) 5 MG tablet Take 5 mg by mouth in the morning and 5 mg in the evening. 12/06/2022 Active isosorbide mononitrate (IMDUR) 30 MG 24 hr tablet Take 30 mg by mouth 1 (one) time each day 12/14/2022 Active atorvastatin (LIPITOR) 40 MG tablet Take 40 mg by mouth 1 (one) time each day Active Empagliflozin (Jardiance) 10 MG tabletIndication s:Stage 3a chronic kidney disease (HCC),Type 2 diabetes mellitus with diabetic chronic kidney disease (HCC) Take 10 mg by mouth 1 (one) time each day in the morning 30 tablet 11 07/02/2024 07/02/20 25 Active Active Problems Problem Noted Date Diagnosed Date Type 2 diabetes mellitus wit h diabetic chronic kidney disease 07/02/2024 Anemia in chronic kidney disease 07/02/2024 Stage 3a chronic kidney disease 01/05/2023 Chronic heart failure co-occ urrent with normal ejection fraction 11/12/2022 Overview (01/05/2023): Last Assessment & Plan: - last TTE on 09/15/22 --moderately dilated LA --mild pulmonary HTN (systolic 42 plus RAP) --normal right ventricle size and function. --normal left ventricular size and systolic function, with mild concentric left ventricular hypertrophy. -- left ventricular ejection fraction is 65-70 %. - optimizing medical management: ASA; carvedilol; SGLT-2 inhibitor; furosemide; rosuvastatin Syncope 11/12/2022 Overview (01/05/2023): Last Assessment & Plan: - Aug 2022, associated with COVID19 - Pt was seen by supervisor twisting department and Holter monitor was ordered Atrial premature complex 10/11/2022 Overview (01/05/2023): Last Assessment & Plan: - ? prior Dx atrial fibrillation, currently on Eliquis for DVT - refer to sleep medicine clinic Chronic low back pain 10/11/2022 Overview (01/05/2023): Last Assessment & Plan: -Previously referred to PT in 2021 and 2020 -Tried lidocaine patch, APAP, and gabapentin -will refer back to providers at [facility], as requested -Continue applying heat, gentle massage, acetaminophen prn -Currently at maximum dosage of gabapentin for his renal function; continue with caution -work on lifestyle modifications Disturbance in sleep behavior 10/11/2022 Overview (01/05/2023): Last Assessment & Plan: - probable ROSALIND Dyslipidemia 10/11/2022 Overview (01/05/2023): Last Assessment & Plan: - lipid profile on 10/11/22, TC 179; [...] now - continue working on lifestyle modification Deep venous thrombosis 10/11/2022 Overview (01/05/2023): Last Assessment & Plan: - Dx On 09/15/22. Non-occlusive b/l DVT - Currently taking Eliquis; Continue at least 3 mo - may need a longer duration at lower dose if pt is considered to have paroxysmal atrial fibrillation (daughter mentioned he was diagnosed with atrial fibrillation once) Urinary incontinence 10/11/2022 Overview (01/05/2023): Last Assessment & Plan: - multifactorial - BPH, Hx CVA, and difficulty ambulating to the bathroom - refer to urologist - continue tamsulosin and finasteride - consider oxybutynin for neurolgenic bladder Hypertensive urgency 09/17/2022 Retention of urine 09/17/2022 Vitamin deficiency 09/17/2022 Hypertension 08/12/2021 Stage 3 chronic kidney disease 08/11/2021 Hypertension in chronic kidn ey disease stage 3 due to type 2 diabetes mellitus 06/24/2021 Ischemic heart disease 06/24/2021 Overview (01/05/2023): Last Assessment & Plan: - s/p PCI in 2002 at [facility] in [place] - s/p PCI to RCA in 2015 at [facility] - Followed by supervisor twisting department, Dr. Faust, last seen in September 2022 Resolved Problems Problem Noted Date Diagnosed Date Resolved Date Acute embolism and thrombosi s of unspecified deep veins of lower extremity, bilateral 09/17/2022 01/05/2023 Atherosclerotic heart diseas e of [place] coronary artery without angina pectoris 09/17/2022 01/05/2023 Benign prostatic hyperplasia with lower urinary tract symptom 09/17/2022 01/05/2023 Contrast-induced nephropathy 09/17/2022 01/05/2023 Difficulty in walking 09/17/20222022 Generalized muscle weakness 09/17/2022 01/05/2023 Hyperlipidemia 09/17/2022 01/05/2023 Other specified cardiac arrhythmia 09/17/2022 01/05/2023 Repeated falls 09/17/2022 01/05/2023 Type 2 diabetes mellitus without complication 09/17/1901/05/2023 Unspecified dementia, unspec ified severity, without behavioral disturbance, psychotic disturbance, mood disturbance, and anxiety 09/17/2022 01/05/2023 Unspecified fall, sequela 09/17/2022 Weakness 09/17/2022 01/05/2023 COVID-19 08/01/2022 01/05/2023 Overview (01/05/2023): Problem added by Discern Expert Type 2 diabetes mellitus wit h peripheral angiopathy 08/12/2021 01/05/2023 Aneurysm of ascending aorta 06/24/2021 01/05/2023 Coronary artery disease due to type 2 diabetes mellitus 06/24/2021 01/05/2023 Encounters Date Type Department Care Team Description 08/24/2024 Orders Only [facility] [address] [phone] Ana Paula Snyder ARNP Stage 3a chronic kidney disease (HCC); Type 2 diabetes mellitus with diabetic chronic kidney disease (HCC); Hypertension 07/02/2024 2:00 PM EST Office Visit [facility] [address] [phone] Ana Paula Snyder ARNP Stage 3a chronic kidney disease (HCC) (Primary Dx); Type 2 diabetes mellitus with diabetic chronic kidney disease (HCC); Hypertension; Anemia in chronic kidney disease 07/01/2024 Travel 06/24/2024 Documentation Only [facility] [address] [phone] Eugenia Del Cid from Last 3 Months Immunizations Name Administration Dates Next Due Moderna SARS-COV-2 11/04/2021,06/29/2021,2 021,10/20/2020 Pneumococcal Conjugate 13-Valent 04/19/2021 Pneumococcal Polysaccharide 08/09/2022 Shingrix 12/08/2021,09/29/2021 Tdap 04/19/2021 Family History Medical History Relation Comments Diabetes Brother Heart disease Brother Hypertension Brother Relation Status Comments Brother Father Mother Social History Tobacco Use Types Packs/Day Years Used Date Smoking Tobacco: Never Smokeless Tobacco: Never Tobacco Cessation:Counseling Given: Not Answered Alcohol Use Standard Drinks/Week Comments Never 0 (1 standard drink = 0.6 oz pur e alcohol) Sex and Gender Information Value Date Recorded Sex Assigned at Male 04/09/2023 7:37 AM EDT Legal Sex Male 9:34 AM EST Gender Identity Male 04/09/2023 7:37 AM EDT Sexual Orientation Not on file Last Filed Vital Signs Vital Sign Reading Time Taken Comments Blood Pressure 124/70 07/02/2024 2:17 PM EST Pulse 79 07/02/2024 2:17 PM EST Temperature - - Respiratory Rate - - Oxygen Saturation 98% 08/12/2021 2:23 PM EST Inhaled Oxygen Concentration - - Weight 82.6 kg (182 lb) 07/02/2024 2:17 PM EST Height - - Body Mass Index - - Plan of Treatment Upcoming Encounters Date Type Department Care Team (Late st Contact Info) Description 09/30/2024 2:30 PM EDT Office Visit [facility] [address] [phone] Claudio Ana PaulaCARL [address] [phone] Health Maintenance Due Date Last Done Comments Diabetes: Ophthalmology Exam 08/12/2021 Diabetes: Pedal Pulse Checked 08/12/2021 Diabetes: Sensory Foot Exam 08/12/2021 Diabetes: Visual Foot Exam 08/12/2021 Diabetes: Hemoglobin A1C 09/18/2024 024, 10/11/2022, 10/11/2022, Additional history exists Pneumococcal Vaccine: 65+ Years Completed 08/09/2022, 04/19/2021 Influenza Vaccine Completed 06/18/2024 Hepatitis B Vaccine Aged Out No longe r eligible based on patient's age to complete this topic Procedures Procedure Name Priority Date/Time Associated Diagnosis Comments EXT RESULT ENTRY Routine 06/18/2024 EXT RESULT ENTRY Routine 07/22/2021 from Last 3 Months or Most Recently Relevant to Health Maintenance Results * (ABNORMAL) EXT RESULT ENTRY (06/18/2024) Only the most recent of2 resultswithin the time period is included. Sodium 135(A) 137 - 147 Potassium 4.3 3.4 - 5.5 Carbon Dioxide 24 mmol/L Anion Gap 11 <=30 MMOL/L Glucose 182 60 - 200 BUN 30(A) 4 - 21 mg/dL Creatinine 2.15(A) 0.60 - 1.30 mg/dL Calcium 9.1 8.7 - 10.7 mg/dL eGFR Non-Afr Honduran 29 06/18/2024 us Historical Provider LAB BLOOD ORDERABLES Chanel iglesias Result from Last 3 Months or Most Recently Relevant to Health Maintenance Insurance MEDICARE MEDICARE MEDICARE Care Teams Life Skills Worker Relationship Specialty Start Date End Date Lula Lopez MD [address] [place] [phone] PCP - General Family Medicine 07/02/24
--- OUTSIDE RECORDS SUMMARY | 2024-09-11 12:12 | XMS_ITS | Encounter Summary ---
Author Organization [employer] Address [address] [place] [address] 7t [place] [address] Care Team Providers Care Provider Network Mgr Name Role Phone Lula Lopez MD Primary Care Provider [phone] Pieter Murguia PharmD Unavailable [phone] Kushal Doe MD Unavailable Reason for Visit * Reason Comments Med Refill Encounter Details Date Type Department Care Team (Late st Contact Info) Description 03/09/2023 Refill [facility] MEDICINE 230 [place], [place] [phone] Bianka Castrejon MD 230 [place], [place] [phone] Social History Tobacco Use Types Packs/Day Years [...] documented as of this encounter Care Teams Provider Network Mgr Relationship Specialty Start Date End Date Lula Lopez MD 230 [place] [address] PCP - General Family Medicine 09/01/22 Pieter Murguia, PharmD 230 [place] [address] Pharmacist Internal Medicine 11/28/22 Kushal Doe MD [facility] Nephrology [address] [place] [address] Nephrology 06/19/24 documented as of this encounter
--- OUTSIDE RECORDS SUMMARY | 2024-09-11 12:12 | XMS_ITS | Encounter Summary ---
Author Organization [employer] Address [address] [facility] 7t [place] [address] Care Team Providers Care Poultry Tender Name Role Phone Lula Lopez MD Primary Care Provider [phone] Pieter Murguia PharmD Unavailable [phone] Kushal Doe MD Unavailable Encounter Details Date Type Department Care Team (Late st Contact Info) Description 04/05/2023 Orders Only [facility] MEDICINE 230 [place], [place] [phone] Lula Lopez MD [address] [place], [place] [phone] Social History Tobacco Use Types Packs/Day Years [...] documented as of this encounter Care Teams Poultry Tender Relationship Specialty Start Date End Date Lula Lopez MD [address] [place] [address] PCP - General Family Medicine 09/01/22 Pieter Murguia, PharmD [address] [place] [address] Pharmacist Internal Medicine 11/28/22 Kushal Doe MD [facility] Nephrology [address] [place] [address] Nephrology 06/19/24 documented as of this encounter
--- OUTSIDE RECORDS SUMMARY | 2024-09-11 12:12 | XMS_ITS | Encounter Summary ---
Author Organization [employer] Address [address] [facility] 7t [place] [address] Care Team Providers Care Recovery Engineer Name Role Phone Lula Lopez MD Primary Care Provider [phone] Pieter Murguia PharmD Unavailable [phone] Kushal Doe MD Unavailable Reason for Visit * Reason Onset Date Comments Med Refill 06/18/2023 Encounter Details Date Type Department Care Team (Late st Contact Info) Description 06/18/2023 Refill [facility] MEDICINE 230 [place], [place] [phone] Lula Lopez MD 230 [place], [place] [phone] Pain of right hip; Chronic right-sided low [...] documented as of this encounter Care Teams Recovery Engineer Relationship Specialty Start Date End Date Lula Lopez MD 230 [place] [address] PCP - General Family Medicine 09/01/22 Pieter Murguia, PharmD 230 [place] [address] Pharmacist Internal Medicine 11/28/22 Kushal Doe MD [facility] Nephrology [address] [place] [address] Nephrology 06/19/24 documented as of this encounter
--- OUTSIDE RECORDS SUMMARY | 2024-09-11 12:12 | XMS_ITS | Encounter Summary ---
Author Organization [employer] Address [address] [facility] 7t [place] [address] Care Team Providers Care Yarn Dyer Name Role Phone Lula Lopez MD Primary Care Provider [phone] Pieter Murguia PharmD Unavailable [phone] Kushal Doe MD Unavailable Reason for Visit * Reason Comments Med Refill Encounter Details Date Type Department Care Team (Late st Contact Info) Description 08/21/2024 Refill [facility] MEDICINE 230 [place], [place] [phone] Lula Lopez MD 230 [place], [place] [phone] Primary hypertension Social History Tobacco Use Types [...] documented as of this encounter Care Teams Yarn Dyer Relationship Specialty Start Date End Date Lula Lopez MD 230 [place] [address] PCP - General Family Medicine 09/01/22 Pieter Murguia, PharmD 230 [place] [address] Pharmacist Internal Medicine 11/28/22 Kushal Doe MD [facility] Nephrology [address] [place] [address] Nephrology 06/19/24 documented as of this encounter
--- OUTSIDE RECORDS SUMMARY | 2024-09-11 12:12 | XMS_ITS | Encounter Summary ---
Author Organization [employer] Address [address] [facility] 7t [place] [address] Care Team Providers Care Open Hearth Furnace Laborer Name Role Phone Lula Lopez MD Primary Care Provider [phone] Pieter Murguia PharmD Unavailable [phone] Kushal Doe MD Unavailable Reason for Visit * Reason Onset Date Comments chart prep 09/10/2024 Encounter Details Date Type Department Care Team (Late st Contact Info) Description 09/10/2024 Telephone [facility] MEDICINE 230 [place], [place] [phone] Xin Ashton MA chart prep Social History Tobacco Use Types Packs/Day Years [...] PM EDT documented as of this encounter Miscellaneous Notes * Telephone Encounter - Xin Ashton MA - 09/10/2024 11:27 AM EST ..chart Prep Labs: not applicable Images: not applicable Vaccines due: Updated Referrals: Urology 01-13-25 Went to neurolgy appt Screenings: Eye Exam Overdue care gaps: A1C, Glucose, Sbirt, and PHQ-9 documented in this encounter Plan of Treatment Not on [...] documented as of this encounter Care Teams Open Hearth Furnace Laborer Relationship Specialty Start Date End Date Lula Lopez MD 230 [place] [address] PCP - General Family Medicine 09/01/22 Pieter Murguia, AmaD [address] [place] [address] Pharmacist Internal Medicine 11/28/22 Kushal Doe MD [facility] Nephrology [address] [place] [address] Nephrology 06/19/24 documented as of this encounter
--- OUTSIDE RECORDS SUMMARY | 2024-09-11 12:12 | XMS_ITS | Encounter Summary ---
Author Organization [employer] Address [address] [facility] 7t [place] [address] Care Team Providers Care Mold Sander Name Role Phone Lula Lopez MD Primary Care Provider [phone] Pieter Murguia PharmD Unavailable [phone] Kushal Doe MD Unavailable Reason for Visit * Reason Comments Med Refill Encounter Details Date Type Department Care Team (Late st Contact Info) Description 08/11/2024 Refill [facility] MEDICINE 230 [place], [place] [phone] Lula Lopez MD 230 [place], [place] [phone] Social History Tobacco Use Types Packs/Day Years [...] documented as of this encounter Care Teams Mold Sander Relationship Specialty Start Date End Date Lula Lopez MD 230 [place] [address] PCP - General Family Medicine 09/01/22 Pieter Murguia, PharmD 230 [place] [address] Pharmacist Internal Medicine 11/28/22 Kushal Doe MD [facility] Nephrology [address] [place] [address] Nephrology 06/19/24 documented as of this encounter
--- OUTSIDE RECORDS SUMMARY | 2024-09-11 12:12 | XMS_ITS | Encounter Summary ---
Author Organization [employer] Address [address] [facility] 7t [place] [address] Care Team Providers Care Labor Arbitrator Name Role Phone Lula Lopez MD Primary Care Provider [phone] Pieter Murguia PharmD Unavailable [phone] Kushal Doe MD Unavailable Reason for Visit * Reason Comments Med Refill Encounter Details Date Type Department Care Team (Late st Contact Info) Description 07/21/2024 Refill [facility] MEDICINE 230 [place], [place] [phone] Lula Lopez MD 230 [place], [place] [phone] Primary hypertension Social History Tobacco Use Types [...] documented as of this encounter Care Teams Labor Arbitrator Relationship Specialty Start Date End Date Lula Lopez MD 230 [place] [address] PCP - General Family Medicine 09/01/22 Pieter Murguia, PharmD 230 [place] [address] Pharmacist Internal Medicine 11/28/22 Kushal Doe MD [facility] Nephrology [address] [place] [address] Nephrology 06/19/24 documented as of this encounter
--- OUTSIDE RECORDS SUMMARY | 2024-09-11 12:12 | XMS_ITS | Continuity of Care Document ---
Author Organization [facility] Address [address] [place] [address] Phone Care Team Providers Care Lube Worker Name Role Phone Vida Ballesteros MD, Danielle Unavailable Unavailabl e Procedures Procedure Date SPECIAL REPORTS OR FORMS REFRACTION OFFICE/OUTPATIENT VISIT, [facility] Advance Directives Directive Yes / No Effective Date File Name No Information Encounters Encounter Description Practice Location Reason(s) For Visit Diagnoses Date Provider Providers Copied on Encounter [facility], [address] [place] [address], [address] [place] [address] tel:[phone] [facility] No Information Vida Santos. [address] [place] [address], [id number], . tel:[phone] Referring Provider: Danielle Ballesteros, [address] [place] [address], [id number]. tel:[phone] OFFICE/OUTPATI ENT VISIT, [facility], [address] [place] [address], [address] [place] [address] tel:[phone] [facility] No Information Vida Santos. [address] [place] [address], [id number], . tel:[phone] Referring Provider: Danielle Ballesteros, [address] [place] [address], [id number]. tel:[phone] Family History Family Member Type Diagnosis Age At Onset No Information Payers Payer name Insurance type Covered republican ID Authoriza tion(s) No Information Social History Type Description Quantity Date Captured Comments Sex Male Smoking Status No Information Chief Complaint And Reason For Visit No Information Reason For Referral Reason For Referral No Information History Of Present Illness Encounter Date Complaint History Of Prese nt Illness No Information Functional Status Date Functional Assessmen t No Information Instructions Date Instruction Additional Infor mation No Information Assessments Type Assessment Date No Information Patient Care Teams Name Effective Dates (start - stop) Status Members No Information
--- OUTSIDE RECORDS SUMMARY | 2024-09-11 12:12 | XMS_ITS | Encounter Summary ---
Author Organization [employer] Address [address] [facility] 7t [place] [address] Care Team Providers Care Wedding Day Coordinator Name Role Phone Lula Lopez MD Primary Care Provider [phone] Pieter Murguia PharmD Unavailable [phone] Kushal Doe MD Unavailable Encounter Details Date Type Department Care Team (Late st Contact Info) Description 06/08/2023 [facility] [employer] 230 [place], [place] [phone] Lula Lopez MD 230 [place], [place] [phone] Social History Tobacco Use Types Packs/Day Years [...] documented as of this encounter Care Teams Wedding Day Coordinator Relationship Specialty Start Date End Date Lula Lopez MD 230 [place] [address] PCP - General Family Medicine 09/01/22 Pieter Murguia, PharmD 230 [place] [address] Pharmacist Internal Medicine 11/28/22 Kushal Doe MD [facility] Nephrology [address] [place] [address] Nephrology 06/19/24 documented as of this encounter
--- OUTSIDE RECORDS SUMMARY | 2024-09-11 12:12 | XMS_ITS | Clinical Summary ---
Author Organization [facility] [employer] [facility] Address [address] [place] [address] Care Team Providers Care [employer] Assistant Manager Name Role Phone Travis Campbell MD Primary Care Provider [phone] Allergies Active Allergy Reactions Criticality Noted Date Comments Rosuvastatin 06/14/2019 Ezetimibe 06/14/2019 Medications Medication Sig Dispensed Refills Start Date End Date Status furosemide (LASIX) 20 MG tablet Take 20 mg by mouth 2 (two) times a day. 0 Active carvedilol (COREG) 25 MG tablet Take by mouth 2 (two) times a day with meals. 0 Active telmisartan-hydrochlo rothiazide (MICARDIS HCT) 80-25 MG per tablet Take 1 tablet by mouth daily. 0 Active isosorbide mononitrate (IMDUR) 30 MG 24 hr tablet Take 30 mg by mouth daily. 0 Active tamsulosin (FLOMAX) 0.4 MG CAPS Take 0.4 mg by mouth daily. 0 Active mirtazapine (REMERON) 15 MG tablet Take 15 mg by mouth every night at bedtime. 0 Active omeprazole (PriLOSEC) 10 MG capsule Take 40 mg by mouth daily. 0 Active aspirin 81 MG tablet Take 81 mg by mouth daily. 0 Active ferrous sulfate 325 (65 FE) MG tablet Take 325 mg by mouth every morning with breakfast. 0 Active [place] 3-6-9 Fatty Acids (OMEGA-3-6-9 PO) Take by mouth. 0 Active gabapentin (NEURONTIN) 300 MG capsule Take 300 mg by mouth 3 (three) times a day. 0 Active metFORMIN (GLUCOPHAGE) tablet 1000 mg Take 1,000 mg by mouth 2 (two) times a day with meals. 0 Active glipiZIDE (GLUCOTROL) tablet 10 mg Take 10 mg by mouth 2 (two) times a day before breakfast and dinner. 0 Active AMLODIPINE BESYLATE PO Take 5 mg by mouth. 0 Activ e finasteride (PROSCAR) 5 MG tablet Take 5 mg by mouth daily. 0 Active Rosuvastatin Calcium 10 MG CPSP Take 20 mg by mouth. 0 Active losartan (COZAAR) tablet 50 mg Take 50 mg by mouth daily. 0 Active hydroCHLOROthiazide (HYDRODIURIL) tablet 25 mg Take 25 mg by mouth daily. 0 Active Active Problems No known active problems Social History Tobacco Use Types Packs/Day Years Used Date Smoking Tobacco: Never Smokeless Tobacco: Never Alcohol Use Standard Drinks/Week Comments No 0 (1 standard drink = 0.6 oz pur e alcohol) Sex and Gender Information Value Date Recorded Sex Assigned at Not on file Gender Identity Not on file Sexual Orientation Not on file Last Filed Vital Signs Vital Sign Reading Time Taken Comments Blood Pressure 115/79 07/09/2019 11:45 AM EST Pulse 73 07/09/2019 11:45 AM EST Temperature 36.7 ??C (98 ??F) 07/09/2019 11:45 AM EST Respiratory Rate - - Oxygen Saturation - - Inhaled Oxygen Concentration - - Weight 92.5 kg (204 lb 0.2 oz) 07/09/2019 11:45 AM EST Height 160 cm (5' 3 ) 07/09/2019 11:45 AM EST Body Mass Index 36.14 07/09/2019 11:45 AM EST Plan of Treatment Health Maintenance Due Date Last Done Comments COVID-19 Vaccine (#1) 1939 Depression Screening 1951 Preventative Health Evaluation 1957 DTap / Tdap / Td (1 - Tdap) 1958 Shingrix-Zoster Vaccine (1 of 2) 1989 Fall Risk Assessment 2004 Pneumococcal Vaccine (1 of 1 - PCV) 2004 RSV Adult > 60+ Yrs or Pregn ant (1 - 1-dose 75+ series) 2014 Influenza Vaccine (#1) 2024 Hepatitis B Vaccines Aged Out No long er eligible based on patient's age to complete this topic RSV Ped < 20 months Aged Out No longe r eligible based on patient's age to complete this topic Care Teams [employer] Assistant Manager Relationship Specialty Start Date End Date Travis Campbell MD [address] [place] [address] PCP - General Internal Medicine 06/03/19
[2024-09-11 13:11] LABS: Appearance Urine Clear; Color Urine Yellow; Glucose Urine UA >=1000 mg/dL (Negative); Leukocyte Esterase Urine Negative (Negative); Nitrite Urine Negative (Negative); Specific Gravity - Urine 1.025 (1.005-1.025); UMIC TRIGGER UACC YES; Urine Blood Negative (Negative); Urine Ketones Negative (Negative); Urine Protein 300 (3+) mg/dL (Neg-Trace)
[2024-09-11 13:15] LABS: Bacteria Urine None Seen (None Seen); RBC Urine 0-2 /HPF (0-2); Squamous Epithelial Cell Urine 0-2 /HPF (0-2); WBC Urine 0-5 /HPF (0-5)
[2024-09-11 13:29] LABS: MANUAL DIFF FLAG NO
[2024-09-11 13:38] LABS: Basophils Percent Auto 0.6 % (0-2); Eosinophils Absolute Auto 0.2 X10*3/uL (0.0-0.4); Eosinophils Percent Auto 2.2 % (0-4); Hematocrit 34.2 % (42.0-52.0); Hemoglobin 10.7 g/dl (14.0-18.0); Imm Gran Abs Auto 0.02 X10*3/uL (0.00-0.03); Imm Gran Pct Auto 0.3 % (0.0-0.4); Lymphocytes Absolute Auto 1.3 X10*3/uL (1.2-4.9); Lymphocytes Percent Auto 18.5 % (20-40); Mean Corpuscular HGB Conc 31.3 g/dl (31.0-36.0); Mean Corpuscular Hemoglobin 27.9 pg (27.0-33.0); Mean Corpuscular Volume 89.1 fL (80.0-98.0); Mean Platelet Volume 9.1 fL (9.4-12.4); Monocytes Absolute Auto 0.5 X10*3/uL (0.1-1.2); Monocytes Percent Auto 7.6 % (2-11); Neutrophils Absolute Auto 5.1 x10*3/uL (2.0-8.3); Neutrophils Percent Auto 70.8 % (45-73); Platelet Count 252 X10*3/uL (160-400); Red Blood Count 3.84 X10*6/uL (4.60-5.80); Red Cell Distribution Width 13.3 % (11.0-16.0); White Blood Count 7.2 X10*3/uL (4.8-10.8)
[2024-09-11 14:05] LABS: Alanine Aminotransferase 25 U/L (0-40); Albumin Level 4.2 g/dL (3.5-5.0); Alkaline Phosphatase 77 U/L (39-117); Anion Gap 12 (12-20); Aspartate Amino Transferase 20 U/L (5-37); Bilirubin Total 0.4 mg/dL (0.0-1.0); Blood Urea Nitrogen 32 mg/dL (9-16); Calcium 9.7 mg/dL (8.4-10.2); Carbon Dioxide 27 mmol/L (22-29); Chloride 104 mmol/L (96-108); Cholesterol 150 mg/dL (<200); Estimated Glomerular Filt Rate 28; Glucose Random 174 mg/dL (60-115); HDL Cholesterol 68 mg/dL (>40); LDL Cholesterol Calculated 68 mg/dL (<100); Potassium 4.5 mmol/L (3.3-5.1); Sodium 138 mmol/L (135-145); Total Protein 7.7 g/dL (6.5-8.0); Triglycerides 72 mg/dL (<150)
[2024-09-11 14:06] LABS: Reflex LDLD? No
[2024-09-11 14:19] LABS: TSH reflex Free T4 4.87 uIU/mL (0.32-4.0)
[2024-09-11 14:25] LABS: Creatinine Urine 96.93 mg/dL
[2024-09-11 14:41] LABS: Microalbum/Creatinine Ratio Ur 1445.3 ug/mg cr (<30)
== END 2024-09-11 11:34 | disposition home or self-care (01) ==
LOC: HO.HHCL 11:33
PROVIDERS: Visit Provider Family Medicine
DX: E11.22 Type 2 diabetes mellitus with diabetic chronic kidney disease (principal); N18.32 Chronic kidney disease, stage 3b; R39.15 Urgency of urination
CPT/HCPCS: 36415; 80053; 80061; 81001; 82043; 82570; 84439; 84443; 85025

== ENCOUNTER 2025-01-06 11:48 | Outpatient (REF) | payer MEDICARE, MEDICAID, SELFPAY ==
--- OUTSIDE RECORDS SUMMARY | 2025-01-06 13:23 | XMS_ITS | Clinical Summary ---
Author Organization [facility] it Address [address] [place] [address] Care Team Providers Care Photo Producer Name Role Phone Lula Lopez MD Primary Care Provider [phone] Surgical History Surgery Date Site/Laterality Comments OTHER SURGICAL HISTORY 2015 PROCEDURE: HISTORY OTHER; COMMENT: FREDERICK x2 RCA Medical History Medical History Date Comments Acute kidney injury ([facility] V24) DX:Acute kidney injury (HCC) Covid-19 DX:COVID-19 Class 1 obesity DX:Class 1 obesi ty Dementia (CMS/HCC V24, CMS/HCC V28) DX:Dementia (HCC) Unwitnessed fall DX:Unwitnessed fall Contrast-induced nephropathy DX: Contrast-induced nephropathy DVT of lower extremity, bila teral (CMS/HCC V24, CMS/HCC V28) DX:DVT of lower extremity, bilateral ([facility]) Urinary retention DX:Urinary ret ention Enlarged prostate DX:Enlarged pr ostate Diabetes mellitus (CMS/HCC V 24, CMS/HCC V28) DX:Diabetes mellitus ([facility]) Social History Tobacco Use Types Packs/Day Years Used Date Smoking Tobacco: Former Smokeless Tobacco: Former Alcohol Use Standard Drinks/Week Comments Not Currently 0 (1 standard drink = 0.6 oz pur e alcohol) Sex and Gender Information Value Date Recorded Sex Assigned at Not on file Legal Sex Male 5:48 PM EST Gender Identity Not on file Sexual Orientation Not on file Obstetrics History Last Filed Vital Signs Vital Sign Reading Time Taken Comments Blood Pressure 138/62 02/08/2023 11:14 AM EDT Sitting R Arm Pulse 72 02/08/2023 11:14 AM EDT Temperature - - Respiratory Rate - - Oxygen Saturation - - Inhaled Oxygen Concentration - - Weight 90.4 kg (199 lb 4.8 oz) 02/08/2023 11:14 AM EDT Height 160 cm (5' 3 ) 02/08/2023 11:14 AM EDT Body Mass Index 35.3 02/08/2023 11:14 AM EDT Plan of Treatment Health Maintenance Due Date Last Done Comments DTaP,Tdap,and Td Vaccines (1 - Tdap) 1958 Pneumococcal Vaccine: 50+ Ye ars (1 of 1 - PCV) 1989 Zoster Vaccines (1 of 2) 1989 RSV Immunization Adult Patie nts (1 - 1-dose 75+ series) 2014 Cholesterol Screening (Lipid Panel) 06/25/2022 Depression Screening 06/25/2022 Falls Risk Assessment 06/25/2022 Social Influencers of Health Screening 06/25/2022 Hypertension/CHF/CAD Annual BMP Blood Test 06/30/2022 COVID-19 Vaccine (1 - 2023-2 5 season) 2024 Influenza Vaccine (Season Ended) 2025 HIB Vaccines Aged Out No longer eligi [...] on patient's age to complete this topic MMR Vaccines Aged Out No longer eligi ble based on patient's age to complete this topic Meningococcal ACWY Vaccine Aged Out N o longer eligible based on patient's age to complete this topic Meningococcal B Vaccine Aged Out No l onger eligible based on patient's age to complete this topic RSV Immunization Patients Un jhon 20 months Aged Out No longer eligible b ased on patient's age to complete this topic Varicella Vaccines Aged Out No longer eligible based on patient's age to complete this topic Care Teams Photo Producer Relationship Specialty Start Date End Date Lula Lopez MD [address] [place] [phone] PCP - General 10/19/22
[2025-01-06 13:49] LABS: Magnesium 2.3 mg/dL (1.6-2.6)
[2025-01-06 14:07] LABS: TSH reflex Free T4 4.83 uIU/mL (0.32-4.0)
[2025-01-06 14:19] LABS: Folate 15.3 ng/mL (> or = 4.0); Vitamin B12 1150 pg/mL (200-900)
[2025-01-06 14:46] LABS: Free T4 (Free Thyroxine) 0.96 ng/dL (0.71-1.85)
== END 2025-01-06 11:49 | disposition home or self-care (01) ==
LOC: HO.HHCL 11:48
PROVIDERS: Nurse Practitioner Family; Visit Provider Family Medicine
DX: N40.0 Benign prostatic hyperplasia without lower urinary tract symptoms (principal); R53.1 Weakness; R79.89 Other specified abnormal findings of blood chemistry; R26.89 Other abnormalities of gait and mobility; Z12.5 Encounter for screening for malignant neoplasm of prostate
CPT/HCPCS: 36415; 82607; 82746; 83735; 84153; 84439; 84443

== ENCOUNTER 2025-01-13 10:41 | Outpatient (AMB) | payer MEDICARE, MEDICAID, SELFPAY ==
--- NOTE | 2025-01-13 10:43 | A.OFFVIS_ITS ---
Intake Visit Reasons: 1YR/PSA Intake Note: Patient presents today for follow up on: frequency, BPH, Renal Cyst, incomplete bladder emptying Urology medications: finasteride, tamsulosin, oxybutynin Blood Thinner: aspirin, apixaban PVR: 62ml's Deli Worker Required: Yes Accompanied by: Daughter Allergies ezetimibe Allergy (Verified 01/13/25 11:25) itchy throat rosuvastatin Adverse Reaction (Verified 01/13/25 11:25) Muscle cramps Medication List - Last Reconciled 01/13/25 by MICK BustilloP- amlodipine 10 mg PO DAILY apixaban (Eliquis) 5 mg PO BID aspirin 81 mg PO DAILY carvedilol 12.5 mg PO BID cholecalciferol (vitamin D3) 50 mcg PO DAILY empagliflozin (Jardiance) 10 mg PO QAM finasteride 5 mg PO DAILY 90 days glipizide 5 mg PO BID lidocaine 5% 1 patch topical DAILY solifenacin (Vesicare) 5 mg PO DAILY 30 days tamsulosin 0.8 mg (2 x 0.4 mg) PO BEDTIME 90 days HPI Comments Details: Lazaro is a pleasant 83-year-old Czech-speaking male patient of Dr. Lopez who was accompanied by his daughter at today's visit. Patients daughter provides most of patients PMH and information at todays visit due to patients memory impairment. He has a past medical history of hypertension, DVTs, uncontrolled diabetes, chronic kidney disease, and heart failure. He presents to the office today for follow-up of his urinary issues. In discussion with the patient and his daughter today he reports having followed up with his PCP recently due to ongoing issues with weight loss and weakness he had been experiencing. Patient's daughter reports he has since discontinued his Trulicity as she feels this has contributed to his lack of appetite, weight loss, and weakness. He has since started glipizide. She also reports having discussed with PCP episodes of urinary urgency and frequency he had been experiencing at which time he was started on oxybutynin. In discussion with the patient and his daughter today he does feel this has been somewhat helpful in episodes of urinary urgency and frequency however he continues with urinary dribbling. He reports compliance with finasteride and Flomax as prescribed. Patient's daughter states he continues to follow-up with Cardiology, Nephrology, and PCP. Recent PSA results were reviewed with the patient's daughter today as noted and trended below: 01/13 0.4, 01/14 0.7, 01/15 0.6 Previous workup has included a retroperitoneal ultrasound 01/13 noting right kidney with no calculi or hydronephrosis. Benign 1.7 cm upper pole cyst which needs no additional imaging or follow-up at this time. Left kidney with no calculi or hydronephrosis. There are four benign Bosniak class 1 simple cyst, all under a cm in size, with the largest measuring 0.8 cm. No additional imaging or follow-up is needed. The bladder is well distended and normal. The prostate measures approximately 57 mL. He otherwise denies nocturia, hematuria, dysuria, foul smelling urine, changes to urinary stream, flank pain, fever, and or chills. In office urinalysis results reviewed with the patient and his daughter today. PVR 62 mL. He otherwise offers no other issues or concerns at this time. [facility] Medical History Chronic bilateral back pain Cognitive impairment Urinary frequency Memory problem Dyslipidemia Type 2 diabetes mellitus Urinary incontinence Chronic kidney disease Benign prostatic hyperplasia with lower urinary tract symptoms Primary hypertension Premature atrial complexes Sleep disturbance Review of Systems Const Reports as per HPI Eyes Reports no additional complaints ENT Reports no additional complaints Card Reports as per HPI Resp Reports no additional complaints GI Reports no additional complaints Reports as per HPI Musc Reports no additional complaints Neuro Reports no additional complaints Psych Reports no additional complaints Endo Reports as per HPI Jensen/Lymph Reports as per HPI Physical Exam Const General: cooperative, healthy appearing, comfortable, no acute distress, well developed, alert and awake Orientation/consciousness: patient oriented x3 Limitations: ambulation with cane HEENT Head: Yes normal to inspection, Yes normocephalic and Yes atraumatic Ears: hearing grossly normal bilaterally Eyes General: appearance normal, both eyes and all related structures Neck Neck: Yes normal visual inspection and Yes trachea midline Chest Chest palpation & inspection: normal inspection of the chest Resp Effort & Inspection: normal respiratory effort and able to speak in complete sentences Cardio Rate: regular rate GI Inspection: Yes normal to inspection General: Yes no CVA tenderness Back/Spine/Pelvis Back: no CVA tenderness Skin General skin exam: no rashes or lesions noted Neuro General: patient oriented x3 Extrem General: Yes normal to inspection Psych Appearance: grossly normal and well kempt Mental Status: mental status grossly normal Speech and movement: Normal speech and movement present and Clear speech present Affect: normal affect Attitude: cooperative Thought process: Normal thought process present Thought content: Normal thought content present Insight: Fair insight present (Psych) Judgement: Fair judgement present (Psych) Office Procedures Post Void Residual Post Residual Void Post Void Residual (PVR): 62 [id number] Void Residual by ultrasound Results AMB Urinalysis, Automated UA Leukoctes 0 Irma/uL Last Edit by Yolanda Rehman [facility] on 01/13/25 11:20 UA Nitrite [facility] on 01/13/25 11:20 UA Urobilinogen 0.2 mg/dL Last Edit [facility] on 01/13/25 11:2 0 UA Protein 300 mg/dL Last Edit [facility] on 01/13/25 11:20 UA pH 6.0 Last Edit [facility] on 01/13/25 11:20 UA Blood 0 Kojo/uL Last [facility] on 01/13/25 11:20 UA Specific [place] 1.015 Last Edit by [facility] Elena [facility] on 01/13/25 11: 20 UA Ketone Last Edit by [facility] on 01/13/25 11:20 UA Bilirubin 0 mg/dL Last Edit by [facility] on 01/13/25 11:20 UA Glucose 1000 mg/dL Last Edit by [facility] Elena [facility] on 01/13/25 11:20 Results Reviewed Results Reviewed: Laboratory Last Values Urine pH (Auto) 6.0 01/13/25 11:18 Specific [place] (Auto) 1.015 01/13/25 11:18 Urine Protein (Auto) 300 mg/dL 01/13/25 11:18 Glucose (UA)(Auto) 1000 mg/dL 01/13/25 11:18 Urine Blood (Auto) 0 Kojo/uL 01/13/25 11:18 Urine Bilirubin (Auto) 0 mg/dL 01/13/25 11:18 Urine Urobilinogen (Auto) 0.2 mg/dL 01/13/25 11:18 Leukocyte Esterase (Auto) 0 Irma/uL 01/13/25 11:18 Assessment & Plan Assessment & Plan (1) Renal cyst: Code(s): N28.1 - Cyst of kidney, acquired Category: Medical (2) Urinary frequency: Code(s): R35.0 - Frequency of micturition Category: Medical (3) Nocturia: Code(s): R35.1 - Nocturia Category: Medical (4) BPH (benign prostatic hyperplasia): Code(s): N40.0 - Benign prostatic hyperplasia without lower urinary tract symptoms Category: Medical (5) Enlarged prostate: Code(s): N40.0 - Benign prostatic hyperplasia without lower urinary tract symptoms Category: Medical (6) Urinary dribbling: Code(s): N39.43 - Post-void dribbling Category: Medical Plan In office urinalysis results with the patient today; as noted above. PVR 62 mL. Stop oxybutynin. Start VESIcare as discussed and prescribed. Recent PSA results reviewed with the patient today; as noted above. We discussed taking finasteride 3 times per week verses daily. Continue Flomax as discussed and prescribed. Information provided regarding pelvic floor exercises to assist with urinary dribbling. Continue to follow-up with PCP, Nephrology, and Cardiology as planned. Follow-up in 3 months with PVR; or sooner with any issues, concerns, and or questions. Orders: Orders AMB Post Void Residual by ultrasound Today N40.0 - Benign prostatic hyperplasia without lower urinary tract symptoms AMB Urinalysis Automated Today Z13.9 - Encounter for screening, unspecified Medications: New solifenacin (Vesicare) 5 mg PO DAILY 30 tabs 3RF 30 days Patient Instructions: The patient had an opportunity to ask questions regarding the treatment plan. All questions were answered. Physical exam, labs, and imaging were discussed and reviewed in detail. As well as risks, benefits, and discussion of treatment choices. No major barriers to understanding were identified. The patient expressed understanding and agreement with the above treatment plan. The patient was made aware they should contact our office by phone for worsening of their current condition, the appearance of new symptoms, or with any questions or concerns. Compliance is encouraged with any medications and follow up testing that is ordered. It is a privilege to be allowed the opportunity to participate in? your urological care.? Again, if you have any questions or con cerns If you have any questions or concerns please do not hesitate to contact me. The office is [phone]. This note is constructed using voice recognition software. While every effort has been made to ensure accuracy rail car maintenance mechanic errors may have been included. Yours sincerely, SABRINA Bustillo Coding Level of Care Code Est Pt Level 4 (51583) Complex EM visit Add On G2211 Diagnoses Renal cyst N28.1 Urinary frequency R35.0 Nocturia R35.1 BPH (benign prostatic hyperplasia) N40.0 Enlarged prostate N40.0 Urinary dribbling N39.43 CPT Codes Post Residual Void - PVR CPT Code: 08366-Okvv Void Residual by ultrasound ([id number])
--- OUTSIDE RECORDS SUMMARY | 2025-01-13 11:58 | XMS_ITS | Clinical Summary ---
Author Organization [facility] it Address [address] [place] [address] Care Team Providers Care Instantizer Operator Name Role Phone Lula Lopez MD Primary Care Provider [phone] Surgical History Surgery Date Site/Laterality Comments OTHER SURGICAL HISTORY 2015 PROCEDURE: HISTORY OTHER; COMMENT: FREDERICK x2 RCA Medical History Medical History Date Comments Acute kidney injury ([facility] V24) DX:Acute kidney injury (HCC) Covid-19 DX:COVID-19 Class 1 obesity DX:Class 1 obesi ty Dementia (CMS/HCC V24, CMS/HCC V28) DX:Dementia (HCC) Unwitnessed fall DX:Unwitnessed fall Contrast-induced nephropathy DX: Contrast-induced nephropathy DVT of lower extremity, bila teral (CMS/HCC V24, CMS/HCC V28) DX:DVT of lower extremity, bilateral ([facility]) Urinary retention DX:Urinary ret ention Enlarged prostate DX:Enlarged pr ostate Diabetes mellitus (CMS/HCC V 24, CMS/HCC V28) DX:Diabetes mellitus ([facility]) Social History Tobacco Use Types Packs/Day Years [...] age to complete this topic Care Teams Instantizer Operator Relationship Specialty Start Date End Date Lula Lopez MD [address] [place] [id number] PCP - General 10/19/22
== END 2025-01-13 11:31 | disposition home or self-care (01) ==
LOC: HO.HUSH 10:41
PROVIDERS: PCP Family Medicine; Visit Provider Nurse Practitioner Family
DX: N28.1 Cyst of kidney, acquired (principal); R35.0 Frequency of micturition; R35.1 Nocturia; N40.0 Benign prostatic hyperplasia without lower urinary tract symptoms; N39.43 Post-void dribbling; Z13.9 Encounter for screening, unspecified
CPT/HCPCS: 99214; G2211

== ENCOUNTER → 2025-01-13 10:41 | Outpatient (BNVA) | payer MEDICARE, MEDICAID, SELFPAY | PROVIDERS: PCP Family Medicine; Visit Provider Nurse Practitioner Family | DX: N28.1 Cyst of kidney, acquired (principal); N40.1 Benign prostatic hyperplasia with lower urinary tract symptoms; R35.0 Frequency of micturition; R35.1 Nocturia; N39.43 Post-void dribbling | CPT/HCPCS: 51798; 81003; 99212 ==

== ENCOUNTER 2025-04-14 11:25 | Outpatient (AMB) | payer MEDICARE, MEDICAID, SELFPAY ==
--- NOTE | 2025-04-14 11:28 | A.OFFVIS_ITS ---
Intake Visit Reasons: 3m/PVR Intake Note: patient presents today for: 3mo/PVR urology medications: tamsulosin, finasteride, solifenacin blood thinners: aspirin, eliquis today's PVR: 207mls [employer] Manufacturing Supervisor Required: Yes [employer] Supervisor Services: [employer] Supervisor Present Accompanied by: Daughter Allergies ezetimibe Allergy (Verified 04/14/25 21:32) itchy throat rosuvastatin Adverse Reaction (Verified 04/14/25 21:32) Muscle cramps Medication List - Last Reconciled 04/14/25 by LUIS Bustillo- amlodipine 10 mg PO DAILY apixaban (Eliquis) 5 mg PO BID aspirin 81 mg PO DAILY carvedilol 12.5 mg PO BID cholecalciferol (vitamin D3) 50 mcg PO DAILY empagliflozin (Jardiance) 10 mg PO QAM finasteride 5 mg PO DAILY 90 days glipizide 5 mg PO BID lidocaine 5% 1 patch topical DAILY solifenacin (Vesicare) 5 mg PO DAILY 30 days tamsulosin 0.8 mg (2 x 0.4 mg) PO BEDTIME 90 days HPI Comments Details: Lazaro is a pleasant 84 year-old Iraqi-speaking male patient of Dr. Lopez who was accompanied by his daughter at today's visit. Patients daughter provides most of patients PMH and information at todays visit due to patients memory impairment. He has a past medical history of hypertension, DVTs, uncontrolled diabetes, chronic kidney disease, and heart failure. He presents to the office today for follow-up of his urinary issues. In discussion with the patient and his daughter today he reports feeling low-dose VESIcare has been helpful with episodes of urinary frequency and urge incontinence he had been experiencing throughout the day. However he does continue to experience episodes of nocturia up to 4 times per night. In office urinalysis results reviewed with the patient today. PVR 207 mL. He is requesting increase in dosage of VESIcare however we discussed increase in postvoid residual relation to overactive bladder medications. He reports compliance with Flomax and finasteride as prescribed. PSAs are as follows: 01/13 0.4, 01/14 0.7, 01/15 0.6 Previous workup has included a retroperitoneal ultrasound 01/13 noting right kidney with no calculi or hydronephrosis. Benign 1.7 cm upper pole cyst which needs no additional imaging or follow-up at this time. Left kidney with no calculi or hydronephrosis. There are four benign Bosniak class 1 simple cyst, all under a cm in size, with the largest measuring 0.8 cm. No additional imaging or follow-up is needed. The bladder is well distended and normal. The prostate measures approximately 57 mL. He otherwise denies hematuria, dysuria, foul smelling urine, changes to urinary stream, flank pain, fever, and or chills. In office urinalysis results reviewed with the patient and his daughter today. He otherwise offers no other issues or concerns at this time. [facility] Medical History Chronic bilateral back pain Cognitive impairment Urinary frequency Memory problem Dyslipidemia Type 2 diabetes mellitus Urinary incontinence Chronic kidney disease Benign prostatic hyperplasia with lower urinary tract symptoms Primary hypertension Premature atrial complexes Sleep disturbance Review of Systems Const Reports as per HPI Eyes Reports no additional complaints ENT Reports no additional complaints Card Reports as per HPI Resp Reports no additional complaints GI Reports no additional complaints Reports as per HPI Musc Reports no additional complaints Neuro Reports no additional complaints Psych Reports no additional complaints Endo Reports as per HPI Jensen/Lymph Reports as per HPI Physical Exam Const General: cooperative, healthy appearing, comfortable, no acute distress, well developed, alert and awake Orientation/consciousness: oriented to person, oriented to place, oriented to time and patient oriented x3 Limitations: ambulation with cane HEENT Head: Yes normal to inspection, Yes normocephalic and Yes atraumatic Ears: hearing grossly normal bilaterally Eyes General: appearance normal, both eyes and all related structures Neck Neck: Yes normal visual inspection and Yes trachea midline Chest Chest palpation & inspection: normal inspection of the chest Resp Effort & Inspection: normal respiratory effort and able to speak in complete sentences Cardio Rate: regular rate GI Inspection: Yes normal to inspection General: Yes no CVA tenderness Back/Spine/Pelvis Back: no CVA tenderness Skin General skin exam: no rashes or lesions noted Neuro General: oriented to person, oriented to place, oriented to time and patient oriented x3 Extrem General: Yes normal to inspection Psych Appearance: grossly normal and well kempt Mental Status: mental status grossly normal Speech and movement: Normal speech and movement present and Clear speech present Affect: normal affect Attitude: cooperative Thought process: Normal thought process present Thought content: Normal thought content present Insight: Fair insight present (Psych) Judgement: Fair judgement present (Psych) Office Procedures Post Void Residual Post Residual Void Post Void Residual (PVR): 207 [id number] Void Residual by ultrasound Results AMB Urinalysis, Automated UA Leukoctes 0 Irma/uL Last Edit by CARLOS EDUARDO Reyes on 04/14/25 12:20 UA Nitrite Last Edit by CARLOS EDUARDO Reyes on 04/14/25 12:20 UA Urobilinogen 3.5 mg/dL Last Edit by CARLOS EDUARDO Reyes on 04/14/25 12:2 0 UA Protein 30 mg/dL Last Edit by CARLOS EDUARDO Reyes on 04/14/25 12:20 UA pH 6.0 Last Edit by CARLOS EDUARDO Reyes on 04/14/25 12:20 UA Blood 10 Kojo/uL Last Edit by CARLOS EDUARDO Reyes on 04/14/25 12:20 UA Specific [place] 1.015 Last Edit by CARLOS EDUARDO Reyes on 04/14/25 12: 20 UA Ketone Last Edit by CARLOS EDUARDO Reyes on 04/14/25 12:20 UA Bilirubin 0 mg/dL Last Edit by CARLOS EDUARDO Reyes on 04/14/25 12:20 UA Glucose 60 mg/dL Last Edit by CARLOS EDUARDO Reyes on 04/14/25 12:20 Results Reviewed Results Reviewed: Laboratory Last Values Urine pH (Auto) 6.0 04/14/25 12:18 Specific [place] (Auto) 1.015 04/14/25 12:18 Urine Protein (Auto) 30 mg/dL 04/14/25 12:18 Glucose (UA)(Auto) 60 mg/dL 04/14/25 12:18 Urine Blood (Auto) 10 Kojo/uL 04/14/25 12:18 Urine Bilirubin (Auto) 0 mg/dL 04/14/25 12:18 Urine Urobilinogen (Auto) 3.5 mg/dL 04/14/25 12:18 Leukocyte Esterase (Auto) 0 Irma/uL 04/14/25 12:18 Assessment & Plan Assessment & Plan (1) Renal cyst: Code(s): N28.1 - Cyst of kidney, acquired Category: Medical (2) Urinary frequency: Code(s): R35.0 - Frequency of micturition Category: Medical (3) Incomplete bladder emptying: Code(s): R33.9 - Retention of urine, unspecified Category: Medical (4) Nocturia: Code(s): R35.1 - Nocturia Category: Medical (5) BPH (benign prostatic hyperplasia): Code(s): N40.0 - Benign prostatic hyperplasia without lower urinary tract symptoms Category: Medical (6) Urinary dribbling: Code(s): N39.43 - Post-void dribbling Category: Medical (7) Enlarged prostate: Code(s): N40.0 - Benign prostatic hyperplasia without lower urinary tract symptoms Category: Medical Plan In office urinalysis results reviewed with the patient today; as noted above. PVR 207 mL. Continue VESIcare, Flomax camera and finasteride as prescribed. We did discussed incomplete bladder emptying. We discussed at length further treatment options of lower urinary tract symptoms and risks and benefits of these treatment options. Will continue with surveillance monitoring at this time. We discussed importance of limiting fluids 2-3 hours prior to bed to decrease episodes of nocturia. All questions were answered. Follow-up in 1-3 months with PVR; or sooner with any issues, concerns, and or questions. Orders: Orders AMB Post Void Residual by ultrasound Today N40.0 - Benign prostatic hyperplasia without lower urinary tract symptoms AMB Urinalysis Automated Today Z13.9 - Encounter for screening, unspecified Patient Instructions: The patient had an opportunity to ask questions regarding the treatment plan. All questions were answered. Physical exam, labs, and imaging were discussed and reviewed in detail. As well as risks, benefits, and discussion of treatment choices. No major barriers to understanding were identified. The patient expressed understanding and agreement with the above treatment plan. The patient was made aware they should contact our office by phone for worsening of their current condition, the appearance of new symptoms, or with any questions or concerns. Compliance is encouraged with any medications and follow up testing that is ordered. It is a privilege to be allowed the opportunity to participate in? your urological care.? Again, if you have any questions or concerns If you have any questions or concerns please do not hesitate to contact me. The office is [phone]. This note is constructed using voice recognition software. While every effort has been made to ensure accuracy oncology nurse navigator errors may have been included. Yours sincerely, MICK BustilloP-BC Coding Level of Care Code Est Pt Level 3 (84786) Complex EM visit Add On G2211 Diagnoses Renal cyst N28.1 Urinary frequency R35.0 Incomplete bladder emptying R33.9 Nocturia R35.1 BPH (benign prostatic hyperplasia) N40.0 Urinary dribbling N39.43 Enlarged prostate N40.0 CPT Codes Post Residual Void - PVR CPT Code: 36660-Xnng Void Residual by ultrasound ([id number])
--- OUTSIDE RECORDS SUMMARY | 2025-04-14 14:04 | XMS_ITS | Clinical Summary ---
Author Organization [facility], [place] [employer] Address [address] [place] [address] Phone Care Team Providers Care Associate Software Application Engineer Name Role Phone Lula Lopez MD Primary Care Provider [phone] Allergies Active Allergy Reactions Criticality Noted Date Comments Ezetimibe 06/14/2019 Other reaction(s): itchy throat, itchy throat Other reaction(s): itchy throat Lactose Unknown 10/11/2022 Rosuvastatin 06/14/2019 Medications amLODIPine (NORVASC) 10 mg tablet Take 1 tablet (10 mg total) by mouth 1 (one) time each day. 5 Active Eliquis 2.5 mg tablet Take 1 tablet (2.5 mg total) by mouth 2 (two) times a day. 5 Active atorvastatin (LIPITOR) 40 mg tablet Take 1 tablet (40 mg total) by mouth daily. 5 Active carvediloL (COREG) 12.5 mg tablet Take 1 tablet (12.5 mg total) by mouth 2 (two) times a day. 5 Active cholecalciferol (VITAMIN D-3) 50 mcg (2,000 unit) tablet Take 1 tablet (2,000 Units total) by mouth daily. 3 Active cyclobenzaprine (FLEXERIL) 5 mg tablet Take 1 tablet (5 mg total) by mouth once daily as needed. 5 Active empagliflozin (JARDIANCE) 10 mg tablet Take 1 tablet (10 mg total) by mouth daily. Active finasteride (PROSCAR) 5 mg tablet Take 1 tablet (5 mg total) by mouth 1 (one) time each day. 5 Active lidocaine (LIDODERM) 5 % patch 5 Active tamsulosin (FLOMAX) 0.4 mg 24 hr capsule Take 2 capsules (0.8 mg total) by mouth at bedtime. 5 Active traMADoL (ULTRAM) 50 mg tablet Take 1 tablet (50 mg total) by mouth once daily as needed. Max Daily Amount: 50 mg 4 Active glipiZIDE (GLUCOTROL XL) 10 mg 24 hr tablet Take 1 tablet (10 mg total) by mouth 2 (two) times a day. Do not crush, chew, or split. Active Farxiga 5 mg tablet Take 1 tablet (5 mg total) by mouth 1 (one) time each day. 5 03/27/20 25 Discontinu ed(Therapy completed) Trulicity 1.5 mg/0.5 mL pen injector injection Inject 0.5 mL (1.5 mg total) under the skin. 5 03/27/20 25 Discontinu ed(Prescri cruzito Discontinu ed) glipiZIDE (GLUCOTROL) 5 mg tablet 1 tablet (5 mg total). 5 03/27/20 25 Discontinu ed(Dose adjustment ) isosorbide mononitrate (IMDUR) 30 mg 24 hr tablet Take 1 tablet (30 mg total) by mouth 1 (one) time each day. 4 03/27/20 25 Discontinu ed(Patient Discharge) oxyBUTYnin XL (DITROPAN-XL) 5 mg 24 hr tablet Take 1 tablet (5 mg total) by mouth daily. 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 Echocardiogram done in August 2022 showed a normal LVEF and grade 1 LV diastolic dysfunction. Currently, he is on diuretic therapy with furosemide. The patient's Karla is managed by his field installer. The patient was noted to be euvolemic on today's examination. Would recommend for the patient to continue with his current diuretic therapy. Assessment & Plan (03/27/2025 2:15 PM EDT): The patient has a history of HFpEF, last echocardiogram in August 2022 showed a normal LV EF with grade 1 diastolic dysfunction. He was previously on furosemide, the daughter states this was taken off due to his kidney function. He states he continues with mild lower extremity swelling but it is unchanged since discontinuing his furosemide. He states that it completely resolves when elevating his legs or after he sleeps at night. I advised that at this time he wear compression socks and elevate his legs whenever he is at rest. I have asked that they monitor his weight and if they notice a weight gain of 2 pounds in a day or 4 to 5 pounds in a week to contact the office as well as to contact the office if he were to develop worsening edema. He has no symptoms of shortness of breath or orthopnea. DVT of lower extremity, bila teral ([facility] V24, CMS/[facility] V28) 03/21/2025 Overview (03/21/2025): Last Assessment & Plan: The patient was found to have bilateral nonocclusive DVTs during recent hospitalization at [facility]. He is currently on anticoagulation therapy with Eliquis. The dose of the Eliquis should be 5 mg orally twice a day given that the indication for the anticoagulation is a deep vein thrombosis. NSVT (nonsustained ventricul ar tachycardia) (CMS/[facility] V24, CMS/[facility] V28) 12/14/2022 Overview (03/21/2025): Last Assessment & Plan: The patient was found to have brief episodes of NSVT during ambulatory EKG monitoring done in November 2022. No episodes of dizziness, near-syncope, or syncope. Nuclear stress test did not show any evidence of ischemia or infarct. The patient is already on beta-hema therapy with carvedilol. A sleep study was recommended and the patient states that it was done at [facility] in early January 2023 (results are not available for review at this time). The patient states that the sleep study was ordered by his neurologist. I recommended for the patient to follow-up with his neurologist regarding the results of his sleep study. Assessment & Plan (03/27/2025 2:15 PM EDT): Has a history of NSVT, as seen on previous monitoring. He continues on carvedilol. He denies any dizziness, headedness, presyncope or episodes of syncope. Will continue to monitor. Snoring 12/14/2022 Overview (03/21/2025): Last Assessment & Plan: The patient has symptoms of significant nighttime snoring. He also has a history of obesity and hypertension. His nighttime snoring could be secondary to sleep apnea. We will order a sleep study for further evaluation. Syncope 10/12/2022 Overview (03/21/2025): Last Assessment & Plan: The patient had an apparent fall in August 2022 for which he was hospitalized at [facility]. While there, he underwent an echocardiogram that showed a normal biventricular function and no significant valve disease. A brain MRI was apparently also done at [facility] and it showed chronic stable lacunar infarcts. After interviewing the patient and his family as well as reviewing the records from [facility], it is still uncertain if the patient actually had a loss of consciousness associated with the event or not. Therefore, we will proceed with ambulatory EKG monitoring for 30 days to make sure that the patient is not having any intermittent arrhythmias that could have led to his episode. CAD (coronary artery disease) 04/08/2021 Overview (03/21/2025): Last Assessment & Plan: The patient has a history of CAD status post PCI in 2002 (at [facility] in [place]) status post PCI to the RCA in 2015. He was previously complaining of symptoms of exertional dyspnea. Nuclear stress test in November 2022 did not show any evidence of ischemia or infarct. Furthermore, his LVEF was noted to be normal. During his last visit to our office, we started the patient on antianginal therapy with isosorbide mononitrate with plans to consider a left heart catheterization with the patient's symptoms persisted after optimization of his antianginal therapy. The patient was already on amlodipine and carvedilol. During today's visit, the patient stated that he has not had any further symptoms of exertional dyspnea after the addition of the isosorbide mononitrate. He also denies any episodes of chest discomfort. Therefore, his symptoms are currently well controlled with antianginal therapy with carvedilol, isosorbide mononitrate, and amlodipine. I had an extensive conversation with the patient and his daughter regarding the management of his coronary artery disease. There is no need for a left heart catheterization at this point given that the previous nuclear stress test did not show any evidence of ischemia or infarct and that his symptoms are currently well controlled on antianginal therapy (as recommended in the ACC chest pain guidelines). The patient will continue his current antianginal therapy and he will continue on rosuvastatin and aspirin. The patient has a history of coronary artery disease. During today's visit, we reviewed the warning signs that should prompt an urgent medical evaluation. Specifically, we discussed that the patient should go to the hospital if she develops any chest discomfort at rest or worsening chest discomfort with exertion. Assessment & Plan (03/27/2025 2:15 PM EDT): Patient has a history of CAD, with last intervention being PCI to the RCA in 2015. He had a nuclear stress test in November 2022 that did not show any ischemia or infarct. He continues on medical therapy with carvedilol, amlodipine, Eliquis and atorvastatin. He denies any chest discomfort or shortness of breath. Patient advised to seek emergency medical attention by calling 911 if they were to develop severe dyspnea, chest pain that did not resolve with rest or nitroglycerin, or if they were to faint. HLD (hyperlipidemia) 04/08/2021 Overview (03/21/2025): Last Assessment & Plan: The patient has a history of hyperlipidemia. He is currently on rosuvastatin 20 mg orally daily. Last lipid panel showed an LDL of 71. We will continue his current therapy. Assessment & Plan (03/27/2025 2:15 PM EDT): Continue on atorvastatin, LDL cholesterol is 68 which is within goal range of less than 70. HTN (hypertension) 04/08/2021 Overview (03/21/2025): Last Assessment & Plan: The patient has a history of arterial hypertension. The patient's blood pressure today was noted to be well controlled. We'll continue the current antihypertensive medication regimen. Assessment & Plan (03/27/2025 2:15 PM EDT): Blood pressure is well-controlled, 130/80, continue on current antihypertensive medication regimen. Encounters Date Type Department Care Team Description 03/27/2025 1:40 PM EDT Office Visit [facility] [address] [place] [phone] Ghislaine Swartz NP Coronary artery disease involving ione heart without angina pectoris, unspecified vessel or lesion type (Primary Dx); Chronic heart failure with preserved ejection fraction (HFpEF) ([facility] V24, [facility] V28); Hyperlipidemia, unspecified hyperlipidemia type; NSVT (nonsustained ventricular tachycardia) ([facility] V24, [facility] V28); Hypertension, unspecified type 01/21/[address] [facility] [address] [place] [phone] Lula Lopez MD from Last 3 Months Surgical History Surgery Date Site/Laterality Comments OTHER SURGICAL HISTORY 2016 PROCEDURE: HISTORY OTHER; COMMENT: FREDERICK x2 RCA Medical History Medical History Date Comments Acute kidney injury ([facility] V24) DX:Acute kidney injury (HCC) Covid-19 DX:COVID-19 Class 1 obesity DX:Class 1 obesi ty Dementia ([facility] V24, [facility] V28) DX:Dementia (HCC) Unwitnessed fall DX:Unwitnessed fall Contrast-induced nephropathy DX: Contrast-induced nephropathy DVT of lower extremity, bila teral ([facility] V24, [facility] V28) DX:DVT of lower extremity, bilateral ([facility]) Urinary retention DX:Urinary ret ention Enlarged prostate DX:Enlarged pr ostate Diabetes mellitus ([facility] V 24, [facility] V28) DX:Diabetes mellitus ([facility]) Social History Tobacco Use Types Packs/Day Years [...] Sign Reading Time Taken Comments Blood Pressure 130/80 03/27/2025 1:27 PM EDT Pulse 74 03/27/2025 1:27 PM EDT Temperature - - Respiratory Rate - - Oxygen Saturation 97% 03/27/2025 1:27 PM EDT Inhaled Oxygen Concentration - - Weight 84.8 kg (187 lb) 03/27/2025 1:27 PM EDT Height 160 cm (5' 3 ) 03/27/2025 1:27 PM EDT Body Mass Index 33.13 03/27/2025 1:27 PM EDT Plan of Treatment Upcoming Encounters Date Type Department Care Team (Late st Contact Info) Description 05/01/2025 1:30 PM EDT Office Visit Orthopedic Surgery - Blank[facility] [address] [phone] Gustavo Saldana, DPM [address] [phone] Health Maintenance Due Date Last Done Comments Diabetes: Annual GFR (Glomerular Filtration Rate) 1939 Diabetes: Annual Foot Exam 1949 Diabetes: Annual Retina Eye Exam 1949 RSV Immunization Adult Patients (1 - 1-dose 75+ series) 2014 Cholesterol Screening (Lipid Panel) 06/25/2022 Falls Risk Assessment 06/25/2022 Medicare Annual Wellness Visit 06/25/2022 Social Influencers of Health Screening 06/25/2022 Hypertension/CHF/CAD Annual BMP Blood Test 06/30/2022 Depression Screening 07/24/2024 Diabetes: Annual Urine Albumin-Creatinine Ratio (uACR) 02/27/2025 COVID-19 Vaccine ( season) 2025 06/18/2024, 10/11/2022, 11/04/2021, Additional history exists Influenza Vaccine (#1) 2025 , 07/01/2023, 06/24/2022, Additional history exists Diabetes: Blood Sugar Control Test (HGBA1C) 07/08/2025 01/06/2025 DTaP,Tdap,and Td Vaccines (2 - Td or Tdap) 04/19/2031 04/19/2021 Zoster Vaccines Completed 12/08/2021, 09/29/2021 Pneumococcal Vaccine: 50+ Years Completed 08/09/2022, 04/19/2021 HIB Vaccines Aged Out No longer eligi [...] to complete this topic RSV Immunization Patients Under 20 months Aged Out No longer eligible based on patient's age to complete this topic Varicella Vaccines Aged Out No longer eligible based on patient's age to complete this topic [place] [place] [id number] MEDICARE [place] [id number] MEDICAID - [place] Care Teams Associate Software Application Engineer Relationship Specialty Start Date End Date Lula Lopez MD [address] [place] [phone] PCP - General 10/19/22
--- OUTSIDE RECORDS SUMMARY | 2025-04-14 14:05 | XMS_ITS | Encounter Summary ---
Author Organization [employer] Address [address] [facility] [address]t [place] [address] Care Team Providers Care Sustainable Systems Analyst Name Role Phone Lula Lopez MD Primary Care Provider [phone] Pieter Murguia PharmD Unavailable [phone] Kushal Doe MD Unavailable Reason for Visit * Reason Comments Med Refill Encounter Details Date Type Department Care Team (Late st Contact Info) Description 04/07/2024 Refill [facility] [address] [place], [place] [phone] Lula Lopez MD [address] [place], [place] [phone] Social History Tobacco Use Types Packs/Day Years [...] Care Team (Late st Contact Info) Description 05/08/2025 10:15 AM EDT Office Visit [facility] [address] [place] [address] Lula Lopez MD [address] [place] [address] documented as of this encounter Goals Goal Patient Goal Type Associated Problems Recent Progress Patient-Stated? Author Blood Pressure < 140/90 Blood Pressure 150/70( 025 11:16 AM EDT) No Pieter Murguia PharmD documented as of this encounter Visit Diagnoses Not on filedocumented in this encounter Additional Health Concerns Assessment Noted Time PHQ-9 Depression Total Score: 2 10/12/19 23 10:24 AM EDT documented as of this encounter Care Teams Sustainable Systems Analyst Relationship Specialty Start Date End Date Lula Lopez MD [address] [place] [phone] PCP - General Family Medicine 09/01/22 Pieter Murguia, AmaD [address] [place] [phone] Pharmacist Internal Medicine 11/28/22 Kushal Doe MD [facility] Nephrology [address] [place] [address] Nephrology 06/19/24 documented as of this encounter
--- OUTSIDE RECORDS SUMMARY | 2025-04-14 14:05 | XMS_ITS | Encounter Summary ---
Author Organization [employer] Address [address] [facility] 7t [place] [address] Care Team Providers Care Machine Plug Shaper Name Role Phone Lula Lopez MD Primary Care Provider [phone] Pieter Murguia PharmD Unavailable [phone] Kushal Doe MD Unavailable Encounter Details Date Type Department Care Team (Late st Contact Info) Description 06/08/2023 [facility] [employer] Information Management [address] [place], [place] [phone] Lula Lopez MD [address] [place], [place] [phone] Social History Tobacco Use Types Packs/Day Years [...] Description 05/08/2025 10:15 AM EDT Office Visit [facility] [address] [place] [phone] Lula Lopez MD [address] [place] [address] documented as of this encounter Goals Goal [...] documented as of this encounter Care Teams Machine Plug Shaper Relationship Specialty Start Date End Date Lula Lopez MD [address] [place] [phone] PCP - General Family Medicine 09/01/22 Pieter Murguia PharmD [address] [place] [address] Pharmacist Internal Medicine 11/28/22 Kushal Doe MD [facility] Nephrology [address] [place] [phone] Nephrology 06/19/24 documented as of this encounter
--- OUTSIDE RECORDS SUMMARY | 2025-04-14 14:05 | XMS_ITS | Encounter Summary ---
Author Organization [employer] Address [address] [facility] 7t [place] [address] Care Team Providers Care Ceramic Chemist Name Role Phone Lula Lopez MD Primary Care Provider [phone] Pieter Murguia PharmD Unavailable Kushal Doe MD Unavailable Reason for Visit * Reason Comments Med Refill Encounter Details Date Type Department Care Team (Late st Contact Info) Description 07/21/2024 Refill [facility] [address] [place], [place] [phone] Lula Lopez MD [address] [place], [place] [phone] Primary hypertension Social History Tobacco Use Types [...] Description 05/08/2025 10:15 AM EDT Office Visit [facility] [address] [place] [address] Lula Lopez MD [address] [place] [phone] documented as of this encounter Goals Goal [...] documented as of this encounter Care Teams Ceramic Chemist Relationship Specialty Start Date End Date Lula Lopez MD [address] [place] [id number] PCP - General Family Medicine 09/01/22 Pieter Murguia, AmaD [address] [place] [phone] Pharmacist Internal Medicine 11/28/22 Kushal Doe MD [facility] [address] [place] [address] Nephrology 06/19/24 documented as of this encounter
--- OUTSIDE RECORDS SUMMARY | 2025-04-14 14:05 | XMS_ITS | Encounter Summary ---
Author Organization [employer] Address [address] [facility] [address]t [place] [address] Care Team Providers Care Cnc Cutting Operator Name Role Phone Lula Lopez MD Primary Care Provider [phone] Pieter Murguia PharmD Unavailable [phone] Kushal Doe MD Unavailable Reason for Referral * Medications - Closed Specialty Diagnoses / Procedures Referred By Anahi t Referred To Contact Diagnoses Type 2 diabetes mellitus with stage 4 chronic kidney disease, without long-term current use of insulin (CMS/HCC) Lula Lopez MD [address] [place] [address] Phone: tel: fax: Referral ID Status Reason Start Date Expiration Date Visits Re quested Visits Authorized [id number] Closed 1 1 Encounter Details Date Type Department Care Team (Late st Contact Info) Description 03/27/2025 Orders Only [facility] [address] [place], [place] [phone] Lula Lopez MD [address] [place], [place] [phone] Type 2 diabetes mellitus with stage 4 chronic kidney disease, without long-term current use of insulin (CMS/HCC) (Primary Dx) Social History Tobacco Use Types Packs/Day Years [...] Description 05/08/2025 10:15 AM EDT Office Visit [facility] [address] [place] [address] Lula Lopez MD [address] [place] [address] documented as of this encounter Goals Goal Patient Goal Type Associated Problems Recent Progress Patient-Stated? Author Blood Pressure < 140/90 Blood Pressure 150/70( 025 11:16 AM EDT) No Pieter Murguia, PharmD documented as of this encounter Visit Diagnoses Diagnosis Type 2 diabetes mellitus with stage 4 chronic kidney disease, without long-term current use of insulin ([facility])- Primary documented in this encounter Additional Health Concerns Assessment Noted Time PHQ-9 Depression Total Score: 2 10/12/19 23 10:24 AM EDT documented as of this encounter Care Teams Cnc Cutting Operator Relationship Specialty Start Date End Date Lula Lopez MD [address] [place] [address] PCP - General Family Medicine 09/01/22 Pieter Murguia, PharmD [address] [place] [address] Pharmacist Internal Medicine 11/28/22 Kushal Doe MD [facility] Nephrology [address] [place] [phone] Nephrology 06/19/24 documented as of this encounter
--- OUTSIDE RECORDS SUMMARY | 2025-04-14 14:05 | XMS_ITS | Clinical Summary ---
Author Organization [facility] Address [address] [address] Phone Care Team Providers Care Barking Machine Feeder Name Role Phone Lula Lopez MD Primary Care Provider [phone] Allergies Active Allergy Reactions Criticality Noted Date [...] 30 tablet 11 07/02/2024 07/02/20 25 Active oxybutynin XL (DITROPAN-XL) 5 MG 24 hr tablet Take 5 mg by mouth in the morning. 09/11/2024 09/11/19 26 Active Active Problems Problem Noted Date Diagnosed Date Chronic kidney disease stage 4 10/13/2024 Persistent proteinuria 10/13/2024 Type 2 diabetes mellitus wit h diabetic [...] with COVID19 - Pt was seen by tool worker and Holter monitor was ordered Atrial premature complex 10/11/2022 Overview (01/05/2023): Last Assessment & Plan: - ? prior Dx atrial fibrillation, currently on Eliquis for DVT - refer to sleep medicine clinic Chronic low back pain 10/11/2022 Overview (01/05/2023): Last Assessment & Plan: -Previously referred to PT in 2021 and 2020 -Tried lidocaine patch, APAP, and gabapentin -will refer back to providers at [facility], as requested -Continue applying [...] Plan: - s/p PCI in 2002 at [facility] in [place] - s/p PCI to RCA in 2015 at [facility] - Followed by tool worker, Dr. Faust, last seen in September 2022 Resolved Problems Problem Noted Date Diagnosed Date Resolved Date Acute embolism and thrombosi s of unspecified deep veins of lower extremity, bilateral 09/17/2022 01/05/2023 Atherosclerotic heart diseas e of [place] coronary artery without angina pectoris 09/17/2022 01/05/2023 [...] to type 2 diabetes mellitus 06/24/2021 01/05/2023 Immunizations Immunization Administration Dates Next Due Moderna SARS-COV-2 11/04/2021,06/29/2021, 021,10/20/2020 Pneumococcal Conjugate 13-Valent 04/19/2021 Pneumococcal Polysaccharide [...] Sign Reading Time Taken Comments Blood Pressure 128/56 09/30/2024 3:12 PM EDT Pulse 77 09/30/2024 3:12 PM EDT Temperature - - Respiratory Rate - - Oxygen Saturation 98% 08/12/2021 2:23 PM EST Inhaled Oxygen Concentration - - Weight 83.7 kg (184 lb 9.6 oz) 09/30/2024 3:12 P M EDT Height - - Body Mass Index - - Plan of Treatment Health Maintenance Due Date Last Done Comments Diabetes: Ophthalmology Exam 08/12/2021 Diabetes: Pedal Pulse Checked 08/12/2021 Diabetes: Sensory Foot Exam 08/12/2021 Diabetes: Visual Foot Exam 08/12/2021 Diabetes: Hemoglobin A1C 12/09/2024 025, 06/18/2024, 10/11/2022, Additional history exists Influenza Vaccine (#1) 2025 06/18/2024 Pneumococcal Vaccine: 50+ Years Completed 08/09/2022, 04/19/2021 Hepatitis B Vaccine Aged Out No longe r eligible based on patient's age to complete this topic Procedures Procedure Name Priority Date/Time Associated Diagnosis Comments EXT RESULT ENTRY Routine 07/22/2021 from Last 3 Months or Most Recently Relevant to Health Maintenance Results * (ABNORMAL) EXT RESULT ENTRY (07/22/2021) Hemoglobin 9.5(A) 13.5 - 17.5 Hematocrit 31.9(A) 41.0 - 53.0 Sodium 138 137 - 147 Potassium 4.2 3.4 - 5.5 Chloride 101 99 - 108 Bicarbonate (CO2) 32(A) 22 - 30 mmol/L Anion Gap 5 <=30 MMOL/L Glucose 211(A) 60 - 200 BUN 30(A) 4 - 21 mg/dL Creatinine 1.51(A) 0.60 - 1.30 mg/dL Calcium 9.0 8.7 - 10.7 mg/dL eGFR Non-Afr Bangladeshi 44 Hemoglobin A1C 7.4(A) 4.0 - 6.0 07/22/2021 us Historical Provider LAB BLOOD ORDERABLES Chanel l Result from Last 3 Months or Most Recently Relevant to Health Maintenance Insurance Medicare [facility] Medicare [facility] Medicare Care Teams Barking Machine Feeder Relationship Specialty Start Date End Date Lula Lopez MD [address] [place] [address] PCP - General Family Medicine 07/02/24
--- OUTSIDE RECORDS SUMMARY | 2025-04-14 14:05 | XMS_ITS | Encounter Summary ---
Author Organization [email or web address] Address [address] [facility] 7t [place] [address] Care Team Providers Care Product Communications Manager Name Role Phone Lula Lopez MD Primary Care Provider [phone] Pieter Murguia PharmD Unavailable [phone] Kushal Doe MD Unavailable Reason for Visit * Reason Onset Date Comments Med Refill 07/13/2023 Encounter Details Date Type Department Care Team (Late st Contact Info) Description 07/13/2023 Refill [facility] [address] [place], [place] [phone] Lula Lopez MD [address] [place], [place] [phone] Social History Tobacco Use Types Packs/Day Years Used Date Smoking Tobacco: Never Passive Smoke Exposure: Never Smokeless Tobacco: Never Alcohol Use Standard Drinks/Week Comments Not Currently 0 (1 standard drink = 0.6 oz pur e alcohol) Depression Answer Date Recorded Patient Health Questionnaire-9 Score 2 10/11/2022 Housing Stability Answer Date Recorded What is your housing situation today? I have rica alondra 05/12/[address] you li [...] Description 05/08/2025 10:15 AM EDT Office Visit [facility] [address] [place] [address] Lula Lopez MD [address] [place] [address] documented as of this encounter Goals Goal Patient Goal Type Associated Problems Recent Progress Patient-Stated? Author Blood Pressure < 140/90 Blood Pressure 150/70( 025 11:16 AM EDT) No Pieter Murguia, Ramón documented as of this encounter Visit Diagnoses Not on filedocumented in this encounter Additional Health Concerns Assessment Noted Time PHQ-9 Depression Total Score: 2 10/12/19 23 10:24 AM EDT documented as of this encounter Care Teams Product Communications Manager Relationship Specialty Start Date End Date Lula Lopez MD [address] [place] [address] [phone] PCP - General Family Medicine 09/01/22 Pieter Murguia, PharmD [address] [place] [address] Pharmacist Internal Medicine 11/28/22 Kushal Doe MD [facility]phrology [address] [place] [address] Nephrology 06/19/24 documented as of this encounter
--- OUTSIDE RECORDS SUMMARY | 2025-04-14 14:05 | XMS_ITS | Encounter Summary ---
Author Organization [employer] Address 75 [facility] 7t [place] [address] Care Team Providers Care Stone Setter Metal Optical Frames Name Role Phone Lula Lopez MD Primary Care Provider [phone] Pieter Murguia PharmD Unavailable [phone] Kushal Doe MD Unavailable Reason for Visit * Reason Onset Date Comments Med Refill 07/13/2023 Encounter Details Date Type Department Care Team (Late st Contact Info) Description 07/13/2023 Refill [facility] [address] [place], [place] [phone] Bianka Castrejon MD [address] [place], [place] [phone] Social History Tobacco Use Types Packs/Day Years [...] Description 05/08/2025 10:15 AM EDT Office Visit [facility] [address] [place] [address] Lula Lopez MD [address] [place] [address] documented as of this encounter Goals Goal [...] documented as of this encounter Care Teams Stone Setter Metal Optical Frames Relationship Specialty Start Date End Date Lula Lopez MD [address] [place] [address] [phone] PCP - General Family Medicine 09/01/22 Pieter Murguia, PharmD [address] [place] [address] Pharmacist Internal Medicine 11/28/22 Kushal Doe MD [facility] Nephrology [address] [place] [address] Nephrology 06/19/24 documented as of this encounter
--- OUTSIDE RECORDS SUMMARY | 2025-04-14 14:05 | XMS_ITS | Encounter Summary ---
Author Organization [employer] [facility] Address 75 [facility] 7t [place] [address] Care Team Providers Care Outsole Beveler Name Role Phone Lula Lopez MD Primary Care Provider [phone] Pieter Murguia PharmD Unavailable [phone] Kushal Doe MD Unavailable Encounter Details Date Type Department Care Team (Late Contact Info) Description 10/07/2022 Abstract [facility] [address] [place] [address] Lula Lopez MD [address] [place] [address] [phone] Social History Tobacco Use Types Packs/Day Years [...] Department Care Team (Late Contact Info) Description 05/08/2025 10:15 AM EDT Office Visit [facility] [address] [place] [address] Lula Lopez MD [address] [place] [address] documented as of this encounter Visit Diagnoses Not on filedocumented in this encounter Care Teams Outsole Beveler Relationship Specialty Start Date End Date Lula Lopez MD [address] [place] [address] PCP - General Family Medicine 09/01/22 Pieter Murguia, AmaD [address] [place] [address] Pharmacist Internal Medicine 11/28/22 Kushal Doe MD [facility] Nephrology [address] [place] [address] Nephrology 06/19/24 documented as of this encounter
--- OUTSIDE RECORDS SUMMARY | 2025-04-14 14:05 | XMS_ITS | Encounter Summary ---
Author Organization [employer] Address 75 [facility] 7t [place] [address] Care Team Providers Care Process Server Name Role Phone Lula Lopez MD Primary Care Provider [phone] Pieter Murguia PharmD Unavailable [phone] Kushal Doe MD Unavailable Reason for Visit * Reason Comments Med Refill Encounter Details Date Type Department Care Team (Late st Contact Info) Description 10/31/2024 Refill [facility] [address] [place], [place] [phone] Lula Lopez MD [address] [place], [place] [phone] Social History Tobacco Use Types Packs/Day Years [...] 10:15 AM EDT Office Visit [facility] [address] [place] [address] Lula Lopez MD [address] [place] [address] documented as of this encounter Goals Goal [...] documented as of this encounter Care Teams Process Server Relationship Specialty Start Date End Date Lula Lopez MD [address] [place] [address] PCP - General Family Medicine 09/01/22 Pieter Murguia, AmaD [address] [place] [address] Pharmacist Internal Medicine 11/28/22 Kushal Doe MD [facility] Nephrology [address] [place] [address] Nephrology 06/19/24 documented as of this encounter
--- OUTSIDE RECORDS SUMMARY | 2025-04-14 14:05 | XMS_ITS ---
Author Organization [facility] Care Team Providers Care Attorney At Law Name Role Phone Iwona Vail Unavailable Unavailable Amalia Goodwin Unavailable Unavailable Nika Dinh Unavailable Unavailable Clara Montano Unavailable Unavailable Sorin Gayle Unavailable Unavailable Myranda Powell Unavailable Unavailable Allergies and adverse reactions No Known Allergies Care Team Name Role Address Phone Organization Dates Nika Dinh PCP [address], [place], [address], [place] (Office): [facility] 09/17/2022 - 09/22/2022 Iwona Vail [address] [place], [address], [place] (Office): [facility] 09/17/2022 - 09/22/2022 Amalia Goodwin [address], [place], [address], [place] (Office): [facility] 09/17/2022 - 09/22/2022 Clara Montano [address], [place], [address], [facility] (Office): [facility] 09/17/2022 - 09/22/2022 Sorin Gayle [address] [place], [address], [facility] (Office): [facility] 09/17/2022 - 09/22/2022 Myranda Powell [address] [place] [address], [address], [facility] (Office): [facility] 09/17/2022 - 09/22/2022 Immunizations Immunization Status Vaccine Details Vaccine Code CodeSystem Date Notes SARS-COV-2 (COVID-19) completed SARS-COV-2 (COVID-19) vaccine, mRNA, spike protein, LNP, preservative free, 100 mcg/0.5mL dose or 50 mcg/0.25mL dose Mfg: Moderna Step 1 of Multi-step with next step required 207 CVX created date: 09/17/2022 administer ed date: 11/18/2020 Adm prior to admission SARS-COV-2 (COVID-19) completed SARS-COV-2 (COVID-19) vaccine, mRNA, spike protein, LNP, preservative free, 100 mcg/0.5mL dose or 50 mcg/0.25mL dose Mfg: Moderna Step 1 of Multi-step with next step required 207 CVX created date: 09/17/2022 administer ed date: 10/20/2020 admin prior to admission SARS-COV-2 (COVID-19 BOOSTER) completed SARS-COV-2 (COVID-19) vaccine, mRNA, spike protein, LNP, preservative free, 100 mcg/0.5mL dose or 50 mcg/0.25mL dose Mfg: Moderna 207 CVX created date: 09/17/2022 administer ed date: 11/04/2021 adm prior to admission SARS-COV-2 (COVID-19 BOOSTER) completed SARS-COV-2 (COVID-19) vaccine, mRNA, spike protein, LNP, preservative free, 100 mcg/0.5mL dose or 50 mcg/0.25mL dose Mfg: Moderna 207 CVX created date: 09/17/2022 administer ed date: 06/29/2021 adm prior to admission Mental Status Section Date Assessment Total Score Description 09/22/2022 CAM 2 Delirium indica aida 09/21/2022 CAM 2 Delirium indica aida Problems Problem # Description Date of onset Resolved Date Code CodeSystem Concern Status 1 ACUTE EMBOLISM AND THROMBOSIS OF UNSPECIFIED DEEP VEINS OF LOWER EXTREMITY, BILATERAL 09/17/[address] active 2 ATHEROSCLEROTIC HEART DISEASE OF [place] CORONARY ARTERY WITHOUT ANGINA PECTORIS 09/17/[address] active 3 BENIGN PROSTATIC HYPERPLASIA WITH LOWER URINARY TRACT SYMPTOMS 09/17/[address] active 4 CONTRAST-INDUCED NEPHROPATHY 09/17/[address] active 5 DIFFICULTY IN WALKING, NOT ELSEWHERE CLASSIFIED 09/17/[address] active 6 ESSENTIAL (PRIMARY) HYPERTENSION 09/17/[address] active 7 HYPERLIPIDEMIA, UNSPECIFIED 09/17/[address] active 8 HYPERTENSIVE URGENCY 09/17/[address] active 9 MUSCLE WEAKNESS (GENERALIZED) 09/17/[address] active 10 OTHER SPECIFIED CARDIAC ARRHYTHMIAS 09/17/[address] active 11 REPEATED FALLS 09/17/[address] active 12 RETENTION OF URINE, UNSPECIFIED 09/17/[address] active 13 TYPE 2 DIABETES MELLITUS WITHOUT COMPLICATIONS 09/17/[address] active 14 UNSPECIFIED DEMENTIA, UNSPECIFIED SEVERITY, WITHOUT BEHAVIORAL DISTURBANCE, PSYCHOTIC DISTURBANCE, MOOD DISTURBANCE, AND ANXIETY 09/17/[address] active 15 UNSPECIFIED FALL, SEQUELA 09/17/[address] active 16 VITAMIN DEFICIENCY, UNSPECIFIED 09/17/[address] active 17 WEAKNESS 09/17/[address] active Reason for Referral No Reasons for Referral Entered Social History Social History Observation Description Start Date End Date Code Code System Current Smoking Status Tobacco smoking consumption unknown 551688377 SNOMED CT Sex Assigned At Male 1940 20151-3 [facility] Gender Identity Sexual Orientation Vital Signs Code Code System Vitals Name Values and Units Timing Information 2339-0 [facility] Blood Sugar Ksvmf=073.0 Units=mg/dL 09/22/2022 27575-0 [facility] Pain Level Value=0.0 09/22/2022 9279-1 [facility] Respiratory Rate Value=18.0 Units=/m in 09/22/2022 8462-4 [facility] Blood Pressure-Diastolic Value=69 Un its=mmHg 09/22/2022 8480-6 [facility] Blood Pressure-Systolic Zardd=511 Un its=mmHg 09/22/2022 8310-5 [facility] Body Temperature Value=97.7 Units= F 09/22/2022 8867-4 [facility] Heart rate Value=70.0 Units=/min 08/2022 43132-2 [facility] O2 % BldC Oximetry Value=98.0 Units= % 09/22/2022 08910-3 [facility] Weight Fivnd=800.5 Units=Lbs 07/2022 8302-2 [facility] Height Value=70.0 Units=Inches 09/18/2022
--- OUTSIDE RECORDS SUMMARY | 2025-04-14 14:05 | XMS_ITS | Encounter Summary ---
Author Organization [employer] Address 75 [facility] 7t [place] [address] Care Team Providers Care Cupola Melter Helper Name Role Phone Lula Lopez MD Primary Care Provider Pieter Murguia PharmD Unavailable [phone] Kushal Doe MD Unavailable Reason for Visit * Reason Comments Med Refill Encounter Details Date Type Department Care Team (Late st Contact Info) Description 10/11/2023 Refill [facility] [address] [place], [place] [phone] Lula Lopez MD [address] [place], [place] [phone] Primary hypertension Social History Tobacco Use Types [...] Office Visit [facility] [address] [place] [address] Lula Lopez MD [address] [place] [address] documented as of this encounter Goals Goal [...] documented as of this encounter Care Teams Cupola Melter Helper Relationship Specialty Start Date End Date Lula Lopez MD [address] [place] [address] PCP - General Family Medicine 09/01/22 Pieter Murguia, AmaD [address] [place] [address] Pharmacist Internal Medicine 11/28/22 Kushal Doe MD [facility] Nephrology [address] [place] [address] Nephrology 06/19/24 documented as of this encounter
--- OUTSIDE RECORDS SUMMARY | 2025-04-14 14:05 | XMS_ITS | Encounter Summary ---
Author Organization [employer] Address 75 [facility] 7t [place] [address] Care Team Providers Care Instrument And Electrical Technician Name Role Phone Lula Lopez MD Primary Care Provider Pieter Murguia PharmD Unavailable [phone] Kushal Deo MD Unavailable Encounter Details Date Type Department Care Team (Late Contact Info) Description 04/20/2023 Orders Only [facility] [address] [place], [place] [phone] Lula Lopez MD [address] [place], [place] [phone] Pain of right hip (Primary Dx); Chronic [...] Description 05/08/2025 10:15 AM EDT Office Visit [facility] [address] [place] [address] Lula Lopez MD [address] [place] [address] documented as of this encounter Goals Goal [...] documented as of this encounter Care Teams Instrument And Electrical Technician Relationship Specialty Start Date End Date Lula Lopez MD [address] [place] [address] PCP - General Family Medicine 09/01/22 Pieter Murguia, PharmD [address] [place] [address] Pharmacist Internal Medicine 11/28/22 Kushal Doe MD [facility] Nephrology [address] [place] [address] Nephrology 06/19/24 documented as of this encounter
--- OUTSIDE RECORDS SUMMARY | 2025-04-14 14:05 | XMS_ITS | Encounter Summary ---
Author Organization [employer] Address 75 [facility] 7t [place] [address] Care Team Providers Care Php Architect Name Role Phone Lula Lopez MD Primary Care Provider [phone] Pieter Murguia PharmD Unavailable [phone] Kushal Doe MD Unavailable Reason for Visit * Reason Onset Date Comments Med Refill 03/23/2025 Encounter Details Date Type Department Care Team (Late st Contact Info) Description 03/23/2025 Refill [facility] [address] [place], [place] [phone] Lula Lopez MD [address] [place], [place] [phone] Social History Tobacco Use Types Packs/Day Years [...] 05/08/2025 10:15 AM EDT Office Visit [facility] [address] [place] [address] Lula Lopez MD [address] [place] [address] documented as of this encounter Goals Goal [...] documented as of this encounter Care Teams Php Architect Relationship Specialty Start Date End Date Lula Lopez MD [address] [place] [address] PCP - General Family Medicine 09/01/22 Pieter Murguia PharmD [address] [place] [address] Pharmacist Internal Medicine 11/28/22 Kushal Doe MD [facility] Nephrology [address] [place] [address] Nephrology 06/19/24 documented as of this encounter
--- OUTSIDE RECORDS SUMMARY | 2025-04-14 14:05 | XMS_ITS | Encounter Summary ---
Author Organization [employer] Address [address] [facility] 7t [place] [address] Care Team Providers Care Utility Tech Name Role Phone Lula Lopez MD Primary Care Provider Pieter Murguia PharmD Unavailable [phone] Kushal Doe MD Unavailable Reason for Visit * Reason Comments Med Refill Encounter Details Date Type Department Care Team (Late st Contact Info) Description 11/21/2023 Refill [facility] [address] [place], [place] [phone] Lula Lopez MD [address] [place], [place] [phone] Social History Tobacco Use Types Packs/Day Years [...] Description 05/08/2025 10:15 AM EDT Office Visit [facility] [address] [place] [address] Lula Lopez MD [address] [place] [address] documented as of this encounter Goals Goal [...] documented as of this encounter Care Teams Utility Tech Relationship Specialty Start Date End Date Lula Lopez MD [address] [place] [address] [phone] PCP - General Family Medicine 09/01/22 Pieter Murguia, Ramón [address] [place] [address] Pharmacist Internal Medicine 11/28/22 Kushal Doe MD [facility] Nephrology [address] [place] [address] Nephrology 06/19/24 documented as of this encounter
--- OUTSIDE RECORDS SUMMARY | 2025-04-14 14:05 | XMS_ITS | Encounter Summary ---
Author Organization [employer] Address 75 [facility] 7t [place] [address] Care Team Providers Care Smasher Hand Name Role Phone Lula Lopez MD Primary Care Provider [phone] Pieter Murguia PharmD Unavailable [phone] Kushal Doe MD Unavailable Reason for Visit * Reason Comments Med Refill Encounter Details Date Type Department Care Team (Late st Contact Info) Description 10/09/2023 Refill [facility] [address] [place], [place] [phone] Lula Lopez MD [address] [place], [place] [phone] Social History Tobacco Use Types Packs/Day Years [...] Description 05/08/2025 10:15 AM EDT Office Visit [facility] [address] [place] [address] Lula Lopez MD [address] [place] [address] documented as of this encounter Goals Goal [...] documented as of this encounter Care Teams Smasher Hand Relationship Specialty Start Date End Date Lula Lopez MD [address] [place] [address] [phone] PCP - General Family Medicine 09/01/22 Pieter Murguia, Ramón [address] [place] [address] Pharmacist Internal Medicine 11/28/22 Kushal Doe MD [facility] Nephrology [address] [place] [address] Nephrology 06/19/24 documented as of this encounter
--- OUTSIDE RECORDS SUMMARY | 2025-04-14 14:05 | XMS_ITS | Encounter Summary ---
Author Organization [employer] [facility] Address [address] [facility] 7t [place] [address] Care Team Providers Care Woods Rider Name Role Phone Lula Lopez MD Primary Care Provider Pieter Murguia PharmD Unavailable [phone] Kushal Doe MD Unavailable Encounter Details Date Type Department Care Team (Late Contact Info) Description 04/05/2023 Orders Only [facility] [address] [place] [address] Lula Lopez MD [address] [place] [address] [phone] Social History Tobacco Use Types Packs/Day Years [...] 10:15 AM EDT Office Visit [facility] [address] [place] [address] Lula Lopez MD [address] [place] [address] documented as of this encounter Goals Goal [...] documented as of this encounter Care Teams Woods Rider Relationship Specialty Start Date End Date Lula Lopez MD [address] [place] [address] PCP - General Family Medicine 09/01/22 Pieter Murguia, PharmD [address] [place] [address] Pharmacist Internal Medicine 11/28/22 Kushal Doe MD [facility] Nephrology [address] [place] [address] Nephrology 06/19/24 documented as of this encounter
--- OUTSIDE RECORDS SUMMARY | 2025-04-14 14:05 | XMS_ITS | Encounter Summary ---
Author Organization [employer] Address [address] [facility] 7t [place] [address] Care Team Providers Care Juvenile Counselor Name Role Phone Lula Lopez MD Primary Care Provider [phone] Pieter Murguia PharmD Unavailable [phone] Kushal Doe MD Unavailable Reason for Visit * Reason Comments Med Refill Encounter Details Date Type Department Care Team (Late st Contact Info) Description 03/23/2025 Refill [facility] MEDICINE [address] [place], [place] [phone] Lula Lopez MD 230 [place], [place] [phone] Social History Tobacco Use Types Packs/Day Years [...] Description 05/08/2025 10:15 AM EDT Office Visit [facility] MEDICINE [address] [place] [phone] Lula Lopez MD [address] [place] [address] documented as of this encounter Goals Goal [...] documented as of this encounter Care Teams Juvenile Counselor Relationship Specialty Start Date End Date Lula Lopez MD [address] [place] [phone] PCP - General Family Medicine 09/01/22 Pieter Murguia, AmaD [address] [place] [address] Pharmacist Internal Medicine 11/28/22 Kushal Doe MD [facility] Nephrology [address] [place] [address] Nephrology 06/19/24 documented as of this encounter
--- OUTSIDE RECORDS SUMMARY | 2025-04-14 14:05 | XMS_ITS | Clinical Summary ---
Author Organization [employer] [facility] Address [address] [place] [address] Care Team Providers Care Operating Room Surgical Technician Name Role Phone Travis Campbell MD Primary Care Provider [phone] Allergies Active Allergy Reactions Criticality Noted Date [...] mouth every morning with breakfast. 0 Active Halifax 3-6-9 Fatty Acids (OMEGA-3-6-9 PO) Take by [...] 73 07/09/2019 11:45 AM EST Temperature 36.7 C (98 F) 07/09/2019 11:45 AM EST Respiratory Rate - [...] 1-dose 75+ series) 2014 Influenza Vaccine (#1) 2025 Hepatitis B Vaccines Aged Out No long er eligible based on patient's age to complete this topic RSV Ped < 20 months Aged Out No longe r eligible based on patient's age to complete this topic Care Teams Operating Room Surgical Technician Relationship Specialty Start Date End Date Travis Campbell MD [address] [place] [address] PCP - General Internal Medicine 06/03/19
--- OUTSIDE RECORDS SUMMARY | 2025-04-14 14:05 | XMS_ITS | Encounter Summary ---
Author Organization [employer] [facility] Address [address] [place] [address] 7t [place] [address] Care Team Providers Care Gas Meter Checker Name Role Phone Lula Lopez MD Primary Care Provider [phone] Pieter Murguia PharmD Unavailable Kushal Doe MD Unavailable Reason for Visit * Reason Comments Med Refill Encounter Details Date Type Department Care Team (Late st Contact Info) Description 03/09/2023 Refill [facility] MEDICINE [address] [place] [address] [phone] Bianka Castrejon MD [address] [place] [address] [phone] Social History Tobacco Use Types Packs/Day Years [...] 10:15 AM EDT Office Visit [facility] MEDICINE [address] [place] [address] Lula Lopez MD [address] [place] [address] documented as of this encounter Goals Goal [...] documented as of this encounter Care Teams Gas Meter Checker Relationship Specialty Start Date End Date Lula Lopez MD [address] [place] [address] PCP - General Family Medicine 09/01/22 Pieter Murguia, PharmD [address] [place] [address] Pharmacist Internal Medicine 11/28/22 Kushal Doe MD [facility] Nephrology [address] [place] [address] Nephrology 06/19/24 documented as of this encounter
--- OUTSIDE RECORDS SUMMARY | 2025-04-14 14:05 | XMS_ITS | Patient Health Record ---
Author Organization [facility] Address [address] [place] [address] Care Team Providers Care Diesel Engine Inspector Name Role Phone Campbell, Travis Primary Care Provider Tonio Holloway Unavailable [phone] Allergies Allergen (clinical drug ingredient) Drug/Non Drug [...] MG 1 tablet Oral ly Once a day; Duration: 30 day(s) Active hydroCHLOROthiazide 25 MG 1 tablet in th e morning Orally Once a day; Duration: 30 day(s) Active amLODIPine Besylate 5 MG 1 tablet Orally Once a day; Duration: 30 day(s) Active metFORMIN HCl 1000 MG 1 tablet with a me al Orally Once a day; Duration: 30 day(s) Active Losartan Potassium 50 MG 1 tablet Orally Once a day; Duration: 30 day(s) Active Ginkgo Biloba Active Isosorbide Mononitrate ER 30 MG 1 tablet in the morning Orally Once a day; Duration: 30 day(s) Active Kalama 3-6-9 - as directed Orally Active Carvedilol 25 MG 1 tablet with food Orally Twice a day; Duration: 30 day(s) Active Finasteride 5 MG 1 tablet Orally Once a day; Duration: 30 day(s) Active Omeprazole 40 MG 1 capsule 30 minutes before morning meal Orally Once a day; Duration: 30 day(s) Not-Taking glipiZIDE ER 10 MG 1 tablet with breakfast Orally Once a day; Duration: 30 day(s) Active Gabapentin 300 MG 1 capsule Orally Twice a day Not-Taking Aspirin Adult Low Strength 81 MG 1 tablet Orally Once a day; Duration: 30 day(s) Active Furosemide 20 MG 1 tablet Orally Once a day; Duration: 30 day(s) Active Tamsulosin HCl 0.4 MG 1 capsule Orally O nce a day; Duration: 30 day(s) Active Iron Not-Taking Extra Depth [...] Type 2 diabetes mellitus with peripheral angiopathy (419654329) Type 2 diabetes mellitus with diabetic peripheral angiopathy without gangrene (E11.51) Active confirmed Plan Of Treatment Pending Test Test Name Order Date [id number] NAIL, 6 OR MORE 09/30/2020 [id number] SKIN LESIONS, 2 TO 4 10/01/19 21 Insurance Providers Payer Name Payer Address Payer Phone Subscriber Number Group Number Insured Name Patient Relationship to Insured Coverage Start Date Coverage End Date [facility] Medicare Complete [address] [address] [place], [place] [id number] Delfino Lazaro Self - patient is the insured Medical [...]
--- OUTSIDE RECORDS SUMMARY | 2025-04-14 14:05 | XMS_ITS | Encounter Summary ---
Author Organization [employer] Address [address] [facility] 7t [place] [address] Care Team Providers Care Muffler Tender Name Role Phone Lula Lopez MD Primary Care Provider [phone] Pieter Murguia PharmD Unavailable [phone] Kushal Doe MD Unavailable Reason for Visit * Reason Onset Date Comments Med Refill 12/18/2024 Encounter Details Date Type Department Care Team (Late st Contact Info) Description 12/18/2024 Refill [facility] MEDICINE 230 [place], [place] [phone] Nick Mckinley MD [address] [place], [place] [phone] Type 2 diabetes mellitus with peripheral angiopathy (CMS/HCC) Social History Tobacco Use Types Packs/Day Years [...] Description 05/08/2025 10:15 AM EDT Office Visit [facility] MEDICINE [address] [place] [phone] Lula Lopez MD [address] [place] [address] documented as of this encounter Goals Goal Patient Goal Type Associated Problems Recent Progress Patient-Stated? Author Blood Pressure < 140/90 Blood Pressure 150/70( 025 11:16 AM EDT) No Pieter Murguia, PharmD documented as of this encounter Visit Diagnoses Diagnosis Type 2 diabetes mellitus with peripheral angiopathy (CMS/HCC) documented in this encounter Additional Health Concerns Assessment Noted Time PHQ-9 Depression Total Score: 2 10/12/19 23 10:24 AM EDT documented as of this encounter Care Teams Muffler Tender Relationship Specialty Start Date End Date Lula Lopez MD [address] [place] [address] PCP - General Family Medicine 09/01/22 Pieter Murguia, PharmD [address] [place] [address] Pharmacist Internal Medicine 11/28/22 Kushal Doe MD [facility] Nephrology [address] [place] [address] Nephrology 06/19/24 documented as of this encounter
--- OUTSIDE RECORDS SUMMARY | 2025-04-14 14:05 | XMS_ITS | Encounter Summary ---
Author Organization [email or web address] Address [address] [facility] 7t [place] [address] Care Team Providers Care Retirement Actuary Name Role Phone Lula Lopez MD Primary Care Provider [phone] Pieter Murguia PharmD Unavailable [phone] Kushal Doe MD Unavailable Reason for Visit * Reason Comments Med Refill Encounter Details Date Type Department Care Team (Late st Contact Info) Description 04/10/2024 Refill [facility] MEDICINE [address] [place], [place] [phone] Lula Lopez MD 230 [place], [place] [phone] Pain of right hip; Chronic right-sided low [...] 10:15 AM EDT Office Visit [facility] MEDICINE [address] [place] [address] Lula Lopez MD [address] [place] [address] documented as of this encounter Goals Goal Patient Goal Type Associated Problems Recent Progress Patient-Stated? Author Blood Pressure < 140/90 Blood Pressure 150/70( 025 11:16 AM EDT) No Pieter Murguia, AmaD documented as of this encounter Visit Diagnoses Diagnosis Pain of right hip Chronic right-sided low back pain, unspecified whether sciatica present documented in this encounter Additional Health Concerns Assessment Noted Time PHQ-9 Depression Total Score: 2 10/12/19 10:24 AM EDT documented as of this encounter Care Teams Retirement Actuary Relationship Specialty Start Date End Date Lula Lopez MD [address] [place] [address] PCP - General Family Medicine 09/01/22 Pieter Murguia, PharmD [address] [place] [address] Pharmacist Internal Medicine 11/28/22 Kushal Doe MD [facility] Nephrology [address] [place] [address] Nephrology 06/19/24 documented as of this encounter
--- OUTSIDE RECORDS SUMMARY | 2025-04-14 14:05 | XMS_ITS | Encounter Summary ---
Author Organization [employer] Address [address] [facility] 7t [place] [address] Care Team Providers Care Telecommunication Operator Name Role Phone Lula Lopez MD Primary Care Provider [phone] Pieter Murguia PharmD Unavailable [phone] Kushal Doe MD Unavailable Encounter Details Date Type Department Care Team (Late st Contact Info) Description 09/12/2024 Orders Only [facility] MEDICINE 230 [place], [place] [phone] Lula Lopez MD [address] [place], [place] [phone] Elevated TSH (Primary Dx) Social History Tobacco Use Types [...] Description 05/08/2025 10:15 AM EDT Office Visit [facility] MEDICINE [address] [place] [address] Lula Lopez MD [address] [place] [address] documented as of this encounter Goals Goal Patient Goal Type Associated Problems Recent Progress Patient-Stated? Author Blood Pressure < 140/90 Blood Pressure 150/70( 025 11:16 AM EDT) No Pieter Murguia, PharmD documented as of this encounter Procedures Procedure Name Priority Date/Time Associated Diagnosis Comments TSH W/REFLEX TO FT4 Routine 01/06/2025 1 1:50 AM EDT Elevated TSH T4, FREE Routine 01/06/2025 11:50 AM EDT Elevated TSH PSA, TOTAL Routine 01/06/2025 11:50 AM EDT Elevated TSH documented in this encounter Results * T4, Free (01/06/2025 11:50 AM EDT) Free T4 (Free Thyroxine) 0.96 0.71 - 1.85 ng/dL [facility] 01/06/2025 11:5 0 AM EDT 01/06/2025 1:14 PM EDT us Lula Lopez MD LAB BLOOD ORDERABLES Final Resul t Performing Organization Address [facility] Co de Phone Number [facility] [address] [place] [phone] * PSA,Total (01/06/2025 11:50 AM EDT) Prostate Specific Antigen 0.60 <0.05 - 4.0 ng/mL [facility] Comment:PSA methodology: Denton Quintanilla i ChemiluminescentMicroparticle Immunoassay (CMIA) 01/06/2025 11:5 0 AM EDT 01/06/2025 1:14 PM EDT us Generic External Data Provider LAB BLOOD ORDERAB LES Final Result Performing Organization Address [facility] Co de Phone Number [facility] [address] [place] [address] [phone] * (ABNORMAL) TSH with Reflex to Free T4 (01/06/2025 11:50 AM EDT) TSH reflex Free T4 4.83(H) 0.32 - 4.0 uIU/mL [facility] Blood 01/06/2025 11:5 0 AM EDT 01/06/2025 1:14 PM EDT us uLla Lopez MD LAB BLOOD ORDERABLES Final Resul t Performing Organization Address [facility] Co de Phone Number [facility] [address] [place] [phone] documented in this encounter Visit Diagnoses Diagnosis Elevated TSH- Primary Other abnormal blood chemistry documented in this encounter Additional Health Concerns Assessment Noted Time PHQ-9 Depression Total Score: 2 10/12/19 23 10:24 AM EDT documented as of this encounter Care Teams Telecommunication Operator Relationship Specialty Start Date End Date Lula Lopez MD [address] [place] [address] PCP - General Family Medicine 09/01/22 Pieter Murguia, Ramón [address] [place] [address] Pharmacist Internal Medicine 11/28/22 Kushal Doe MD [facility] Nephrology [address] [place] [phone] Nephrology 06/19/24 documented as of this encounter
--- OUTSIDE RECORDS SUMMARY | 2025-04-14 14:05 | XMS_ITS | Encounter Summary ---
Author Organization [employer] Address [address] [facility] 7t [place] [address] Care Team Providers Care Integration Software Engineer Name Role Phone Lula Lopez MD Primary Care Provider [phone] Pieter Murguia PharmD Unavailable [phone] Kushal Doe MD Unavailable Reason for Visit * Reason Onset Date Comments Med Refill 06/18/2023 Encounter Details Date Type Department Care Team (Late st Contact Info) Description 06/18/2023 Refill [facility] MEDICINE [address] [place], [place] [phone] Lula Lopez MD 230 [place], [place] [phone] Pain of right hip; Chronic right-sided low [...] Description 05/08/2025 10:15 AM EDT Office Visit [facility] MEDICINE [address] [place] [address] Lula Lopez MD [address] [place] [address] documented as of this encounter Goals Goal [...] documented as of this encounter Care Teams Integration Software Engineer Relationship Specialty Start Date End Date Lula Lopez MD [address] [place] [address] [phone] PCP - General Family Medicine 09/01/22 Pieter Murguia, AmaD [address] [place] [address] [phone] Pharmacist Internal Medicine 11/28/22 uKshal Doe MD [facility] Nephrology [address] [place] [address] Nephrology 06/19/24 documented as of this encounter
--- OUTSIDE RECORDS SUMMARY | 2025-04-14 14:05 | XMS_ITS | Clinical Summary ---
Author Organization [employer] Address [address] [place] [address] Care Team Providers Care Contact Lens Blocker Name Role Phone Lula Lopez MD Primary Care Provider [phone] Pieter Murguia PharmD Unavailable [phone] Kushal oDe MD Unavailable Allergies Active Allergy Reactions Criticality [...] Blood Glucose Monitoring Suppl (FreeStyle Lite) w/Device kitIndications: Type 2 diabetes mellitus with hyperglycemia, without long-term current use of insulin ([facility]) 1 each in the morning. 1 kit 08/09/19 23 Active FREESTYLE LITE test stripIndication s:Type 2 diabetes mellitus with hyperglycemia, without long-term current use of insulin ([facility]) Use as instructed 100 each 12 08/09/19 23 Active Blood Pressure kitIndications: Primary hypertension Check blood pressure daily as directed 1 kit 11/26/19 23 Active cholecalciferol (Vitamin D-3) 50 MCG (1999 UT) tablet Take 1 tablet (50 mcg) by mouth in the morning. 90 tablet 1 01/06/20 23 Active isosorbide mononitrate ER (Imdur) 30 MG 24 hr tablet TAKE 1 TABLET BY MOUTH DAILY 12/15/19 23 Active Multiple Vitamin (multivitamin) tablet Take 1 tablet by mouth in the morning. 90 tablet 3 02/15/20 23 Active furosemide (Lasix) 20 MG tabletIndicatio ns:Primary hypertension TAKE 2 TABLETS(40 MG) BY MOUTH IN THE MORNING 60 tablet 11 09/25/19 24 Active finasteride (Proscar) 5 MG tablet TAKE 1 TABLET BY MOUTH EVERY MORNING 90 tablet 1 07/22/20 24 Active traMADol (Ultram) 50 MG tabletIndicatio ns:Pain of right hip,Chronic right-sided low back pain, unspecified whether sciatica present Take 1 tablet (50 mg) by mouth if needed at bedtime for severe pain. 30 tablet 07/22/20 24 Active amLODIPine (Norvasc) 10 MG tabletIndicatio ns:Primary hypertension TAKE 1 TABLET(10 MG) BY MOUTH IN THE MORNING 90 tablet 3 08/21/19 25 Active oxybutynin XL (Ditropan XL) 5 MG 24 hr tablet Take 1 tablet (5 mg) by mouth Once per day. Do not crush, chew, or split. 30 tablet 11 09/11/19 25 026 Active empagliflozin (Jardiance) 10 MG Take 10 mg by mouth Once per day. Active carvedilol (Coreg) 12.5 MG tablet TAKE 1 TABLET BY MOUTH TWICE DAILY 180 tablet 1 12/03/19 25 Active cyclobenzaprine (Flexeril) 5 MG tablet Take 1 tablet (5 mg) by mouth if needed at bedtime for muscle spasms. 90 tablet 3 12/13/19 25 Active lidocaine (Lidoderm) 5 % patch APPLY 1 PATCH TOPICALLY EVERY MORNING. REMOVE AND DISCARD PATCH WITHIN 12 HOURS OR DIRECTED BY MD. 30 patch 3 12/20/19 25 Active atorvastatin (Lipitor) 40 MG tablet Take 1 tablet (40 mg) by mouth Once per day. TAKE 1 TABLET(40 MG) BY MOUTH IN THE MORNING 30 tablet 11 01/22/20 25 Active glipiZIDE (Glucotrol) 10 MG tablet Take 1 tablet (10 mg) by mouth before breakfast and before evening meal. 180 tablet 3 02/22/20 25 026 Active apixaban (Eliquis) 2.5 MG tablet Take 1 tablet (2.5 mg) by mouth 2 times daily. TAKE 1 TABLET(2.5 MG) BY MOUTH TWICE DAILY 180 tablet 03/26/20 25 Active Dulaglutide 0.75 MG/0.5ML solution auto-injectorIn dications:Type 2 diabetes mellitus with stage 4 chronic kidney disease, without long-term current use of insulin ([facility]) Inject 0.75 mg under the skin 1 (one) time per week. 2 mL 03/27/20 25 Active Eliquis 2.5 MG tablet TAKE 1 TABLET(2.5 MG) BY MOUTH TWICE DAILY 180 tablet 3 09/16/19 25 025 Discontinued(R eorder (will not trigger notification to Pharmacy)) Active Problems Problem Noted Date Diagnosed Date Urinary urgency 09/11/2024 Tremor 06/18/2024 Assessment & Plan (09/15/2024 5:23 PM EST): - evaluated by neurologist; patient did not have significant tremor - monitor symptoms at this time Assessment & Plan (06/18/2024 9:39 AM EST): Pt's daughter c/o new onset of tremor on his hands, and forgetfulness. Plan: Neurology referral Diabetes mellitus, type 2 09/04/2023 Assessment & Plan (01/08/2025 12:33 PM EDT): -A1c 6.4% on 01/06/25, slight increase 6.3% on 08/30/23 - Continue working on lifestyle modifications - Continue checking glucose: three times daily, at least fasting and 2 hour postprandial of the largest meal of the day - Continue Jardiance 10 mg daily - Discontinue Trulicity - Restart glipizide 5 mg twice a day - Discontinued basal insulin Tx History: -discontinuing basal insulin (started when he was in the hospital in Jul 2022) -discontinuing glipizide due to hypoglycemia; restarted today since he is going to discontinue Trulicity - Metformin is discontinued due to CKD - Trulicity is discontinued due to poor appetite and food intake - Microalbumin test: 04/19/22 Albuminuria - Lipid profile: 09/11/24, TC 150, TG 72, HDL 68, LDL 68 - Diabetic eye exam: No record available yet - Foot exam: 08/30/23 Follow up in 3 mo Assessment & Plan (09/04/2023 12:41 PM EST): [...] / activity with family and community -avoid SHOOK SPLICER depressants and anticholinergic medications - seen by Dr. Calderón in December 2022, upcoming appt Assessment & Plan (11/12/2022 7:17 AM EDT): - Aug 2022, associated with COVID19 - Pt was seen by engine wiper and Holter monitor was ordered Chronic heart failure with preserved ejection fr action 11/12/2022 Assessment & Plan (01/06/2025 11:48 AM EDT): - last TTE on 09/15/22 --moderately dilated LA --mild pulmonary HTN (systolic 42 plus RAP) --normal right ventricle size and function. --normal left ventricular size and systolic function, with mild concentric left ventricular hypertrophy. -- left ventricular ejection fraction is 65-70 %. - Nuclear stress test on 12/13/22 EF 65% - optimizing medical management: ASA; carvedilol; SGLT-2 inhibitor; furosemide; rosuvastatin - Follow up with engine wiper Assessment & Plan (09/11/2024 6:14 AM EST): [...] Type 2 diabetes mellitus wit h stage 4 chronic kidney disease, without long-term current use of insulin 11/09/2022 Assessment & Plan (01/15/2025 8:31 AM EDT): -A1c 6.4% on 01/06/25, slight increase 6.3% on 08/30/23 - Continue working on lifestyle modifications - Continue checking glucose: three times daily, at least fasting and 2 hour postprandial of the largest meal of the day - Continue Jardiance 10 mg daily - Discontinue Trulicity - Restart glipizide 5 mg twice a day - Discontinued basal insulin Tx History: -discontinuing basal insulin (started when he was in the hospital in Jul 2022) -discontinuing glipizide due to hypoglycemia; restarted today since he is going to discontinue Trulicity - Metformin is discontinued due to CKD - Trulicity is discontinued due to poor appetite and food intake - Microalbumin test: 04/19/22 Albuminuria. CKD4 - Lipid profile: 09/11/24, TC 150, TG 72, HDL 68, LDL 68 - Diabetic eye exam: No record available yet - Foot exam: 01/06/25 Assessment & Plan (09/11/2024 5:45 PM EST): -A1c 6.6% on , 6.3% on 08/30/23, 7.1% on 02/14/23. - [...] up in 3 mo Assessment & Plan (09/04/2023 12:36 PM EST): [...] 1:22 PM EDT): - follow up with environmental services specialist as scheduled - on low dose SGLT-2 inhibitor Assessment & Plan (11/12/2022 7:23 AM EDT): - follow up with environmental services specialist as scheduled - on low dose SGLT-2 inhibitor Primary hypertension 10/11/2022 Assessment & Plan (01/06/2025 11:49 AM EDT): - Goal BP <140/90 per JNC-8, < 130/80 per ACC/AHA guideline - BP elevated today, home BP normal. - co-managed with environmental services specialist, engine wiper, and pharmacist - continue carvediolol 12.5 mg bid - continue furosemide 40 mg daily - continue Amlodipine [...] mo or sooner prn Assessment & Plan (09/15/2024 5:15 PM EST): - Goal BP <140/90 per JNC-8, < 130/80 per ACC/AHA guideline - BP slightly elevated today. Improved medication adherence despite difficulty affording these medications - co-managed with environmental services specialist, engine wiper, and pharmacist - continue carvediolol 12.5 mg bid - continue furosemide 40 mg daily - continue Amlodipine [...] mo or sooner prn Assessment & Plan (06/18/2024 4:45 PM EST): Patient of Dr. Lopez here for a sick visit. - Goal BP <140/90 per JNC-8, < 130/80 per ACC/AHA guideline - BP controlled Hx of issues with medication adherence due to difficulty affording medications co-managed with environmental services specialist, engine wiper, and pharmacist On: Carvediolol 12.5 mg bid, [...] difficulty affording these medications - co-managed with environmental services specialist, engine wiper, and pharmacist - continue carvediolol 12.5 mg [...] difficulty affording these medications - co-managed with environmental services specialist, engine wiper, and pharmacist - continue carvediolol 12.5 mg [...] -continue working on lifestyle modifications -referred to [facility] - HTN -check renal panel in 2 [...] -continue working on lifestyle modifications -refer to [facility] - HTN Cognitive impairment 10/11/2022 Assessment & Plan (09/15/2024 5:22 PM EST): -MRI in Aug 2022 shoed old lacunar infarct -?vascular dementia; 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 -continue encourage social interaction / activity with family and community -avoid SHOOK SPLICER depressants and anticholinergic medications Assessment & Plan (11/10/2022 11:28 AM EDT): -MRI in Aug 2022 shoed old lacunar infarct -?vascular dementia; 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 -continue encourage social interaction / activity with family and community -avoid SHOOK SPLICER depressants and anticholinergic medications Assessment & Plan (10/11/2022 11:39 PM EDT): -MRI in Aug 2022 shoed old lacunar infarct -?vascular dementia; 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 -continue encourage social interaction / activity with family and community -avoid SHOOK SPLICER depressants and anticholinergic medications Urinary incontinence 10/11/2022 Assessment & Plan (01/15/2025 8:35 AM EDT): - multifactorial - BPH, Hx CVA, and difficulty ambulating to the bathroom - following urologist and environmental services specialist - continue tamsulosin and finasteride - currently on oxybutynin for neurolgenic bladder - upcoming appointment with urologist on 01/13/25 Assessment & Plan (09/15/2024 5:17 PM EST): - multifactorial - BPH, Hx CVA, and difficulty ambulating to the bathroom - following urologist and environmental services specialist - continue tamsulosin and finasteride - will try oxybutynin for neurolgenic bladder; discussed about its side effect. Assessment & Plan (09/04/2023 12:53 PM EST): [...] gabapentin -will refer back to providers at [facility], as requested -Continue applying heat, gentle massage, acetaminophen prn -Currently at maximum dosage of gabapentin for his renal function; continue with caution -work on lifestyle modifications Assessment & Plan (09/15/2024 5:22 PM EST): -Previously referred to PT in 2021 and 2020 -Tried lidocaine patch, APAP, and gabapentin -Continue applying heat, gentle massage, acetaminophen prn -Continue judicious use of tramadol -work on lifestyle modifications Assessment & Plan (10/11/2022 11:12 PM EDT): -Previously referred to PT in 2021 and 2020 -Tried lidocaine patch, APAP, and gabapentin -will refer back to providers at [facility], as requested -Continue applying [...] fibrillation once) Dyslipidemia 10/11/2022 Assessment & Plan (01/05/2025 4:21 PM EDT): - lipid profile on 09/11/24 - current medication: Atorvastatin 40 mg at bedtime - treatment history: Previously tried ezetimibe; it was discontinued due to adverse reaction - continue rosuvastatin with caution; consider lowering dose when his renal function worsens or changing to atorvastatin now - continue working on lifestyle modification Assessment & Plan (09/15/2024 5:21 PM EST): - lipid profile on 09/11/24 - current medication: Atorvastatin 40 mg at bedtime - treatment history: Previously tried ezetimibe; it was discontinued due to adverse reaction - continue rosuvastatin with caution; consider lowering dose when his renal function worsens or changing to atorvastatin now - continue working on lifestyle modification Assessment & Plan (09/04/2023 12:42 PM EST): [...] now - continue working on lifestyle modification Chronic kidney disease 10/11/2022 Assessment & Plan (01/15/2025 8:32 AM EDT): - following with environmental services specialistCHONG, last seen in September 2024 - furosemide to 40 mg daily - on empagliflozin 10 mg daily - previously on ARB, stopped due to SHEBA in the past - previously on metformin and rosuvastatin which were discontinued - previously on dapagliflozin (Farxiga) which was changed to empagliflozin by environmental services specialist - renal dose for apixaban - monitor renal function Assessment & Plan (09/15/2024 5:20 PM EST): - following with environmental services specialist, last seen in Jun 2024 - furosemide to 40 mg daily - on empagliflozin 10 mg daily - previously on ARB, stopped due to SHEBA in the past - previously on metformin and rosuvastatin which were discontinued - decreased apixaban dose - monitor renal function Assessment & Plan (09/04/2023 1:06 PM EST): [...] urinary tract symptoms 09/17/2022 Assessment & Plan (01/08/2025 12:35 PM EDT): - evaluated by urologist, [facility], last seen in December 2023 - continue finasteride and tamsulosin; Assessment & Plan (09/15/2024 5:21 PM EST): - evaluated by urologist, [facility], last seen in December 2023 - continue finasteride and tamsulosin; Assessment & Plan (02/17/2023 1:22 PM EDT): - evaluated by urologist, [facility], last seen in December 2022 - continue [...] weakness (generalized) 09/17/2022 Contrast-induced nephropathy (CODE) 09/17/2022 Type 2 diabetes mellitus with peripheral angiopa thy 08/12/2021 Assessment & Plan (01/15/2025 8:29 AM EDT): - refer to food general manager for diabetic foot care Assessment & Plan (06/18/2024 9:56 AM EST): [...] Ischemic heart disease 06/24/2021 Assessment & Plan (01/05/2025 4:20 PM EDT): - s/p PCI in 2002 at [facility] - s/p PCI to RCA in 2015 at [facility] 12/13/22 Nuclear stress test normal; EF 65% - Followed by engine wiper, Dr. Faust, last seen in November 2022, given reassurance - Optimize risk factor management - Currently on ASA and DOAC Assessment & Plan (09/11/2024 12:22 PM EST): - s/p PCI in 2002 at [facility] - s/p PCI to RCA in [address] [facility] - 12/13/22 Nuclear stress test normal; EF 65% - Followed by engine wiper, Dr. Faust, last seen in November 2022, given reassurance - Optimize risk factor management - Currently on ASA and DOAC Assessment & Plan (09/04/2023 12:25 PM EST): - s/p PCI in 2002 at [facility] - s/p PCI to RCA in 2015 at [facility] 12/13/22 Nuclear stress test normal; EF 65% - Followed by engine wiper, Dr. Faust, last seen in November 2022, given reassurance - Optimize risk factor management - Currently on ASA and DOAC Assessment & Plan (02/17/2023 1:18 PM EDT): - s/p PCI in 2002 at [facility] - s/p PCI to RCA in 2015 at [facility] 12/13/22 Nuclear stress test normal; EF 65% - Followed by engine wiperDr. Faust, last seen in November 2022, given reassurance - Optimize risk factor management Assessment & Plan (11/12/2022 7:35 AM EDT): - s/p PCI in 2003 at [facility] in [place] - s/p PCI to RCA in [address] [facility] - Followed by engine wiper, Dr. Faust, last seen in September 2022 [...] Continue glipizide XL 2.5 mg once daily, wrapping machine tender discontinuing glipizide. Can change to regular - [...] bilateral 09/17/2022 11/12/2022 Hypertensive urgency 09/17/2022 024 Vitamin deficiency 09/17/2022 06/28/2023 5 Aneurysm of ascending aorta 06/24/2021 11/12/2022 Encounters Date Type Department Care Team Description 04/02/2025 Telephone [facility] [address] [facility] [place] [address] Lula Lopez MD Prior Authorization (PA: Dion) 03/27/2025 Orders Only [facility] [address] [place] [address] Lula Lopez MD Type 2 diabetes mellitus with stage 4 chronic kidney disease, without long-term current use of insulin ([facility]) (Primary Dx) 03/26/2025 Refill [facility] [address] [facility] [place] [address] Lula Lopez MD 03/23/2025 Refill [facility] [address] [facility] [place] [address] Lula Lopez MD 03/23/2025 Refill [facility] [address] [facility] [place] [address] Lula Lopez MD 02/21/2025 Orders Only [facility] [address] [place] [address] Lula Lopez MD 02/21/2025 Telephone [facility] [address] [facility] [place] [address] Lula Lopez MD 01/24/2025 Telephone [facility] [address] [place] [address] Lula Lopez MD 01/20/2025 Refill [facility] [address] [place] [address] Lula Lopez MD from Last 3 Months Immunizations Immunization Administration Dates Next Due Influenza High-dose Quadriva [...] Sign Reading Time Taken Comments Blood Pressure 150/70 01/06/2025 11:16 AM EDT Pulse 70 01/06/2025 11:16 AM EDT Temperature 36.2 C (97.1 F) 01/06/2025 11:16 AM EDT Respiratory Rate 15 01/06/2025 11:16 AM EDT Oxygen Saturation 97% 09/11/2024 10:55 AM EST Inhaled Oxygen Concentration - - Weight 81.7 kg (180 lb 3.2 oz) 01/06/2025 11:16 AM EDT Height 165.1 cm (5' 5 ) 01/06/2025 11:16 AM EDT Body Mass Index 29.99 01/06/2025 11:16 AM EDT Plan of Treatment Upcoming Encounters Date Type Department Care Team (Late st Contact Info) Description 05/08/2025 10:15 AM EDT Office Visit [facility] [address] [place] [address] Lula Lopez MD [address] [place] [address] Health Maintenance Due Date Last Done Comments Eye Exam 1950 RSV Patients and Patients Aged 60 years or older (1 - 1-dose 75+ series) 2014 Depression Screening 10/12/2023 10/11/2022, 10/12/19 23 COVID-19 Vaccine ( season) 2025 06/18/2024, 10/11/2022, 11/04/2021, Additional history exists Influenza Vaccine (#1) 2025 4, 07/01/2023, 06/24/2022, Additional history exists Diabetes: Hemoglobin A1C 07/08/2025 025, 09/11/2024, 06/18/2024, Additional history exists Alcohol/Substance Use Screening 09/11/2025 09/11/2024 Lipid Panel 09/11/2025 09/11/2024, 03, 10/11/2022, Additional history exists SDOH Screening 09/11/2025 09/11/2024 Diabetes: Foot Exam 01/06/2026 01/06/2025, 09/11/2024, 09/11/2024, Additional history exists Tobacco Screening 01/06/2026 01/06/2025 DTaP/Tdap/Td Vaccines (2 - Td or Tdap) [...] 11:16 AM EDT) No Pieter Murguia, AmaD Procedures Procedure Name Priority Date/Time Associated Diagnosis Comments POCT GLYCOSYLATED HEMOGLOBIN (HGB A1C) Routine 01/06/2025 11:18 AM EDT Type 2 diabetes mellitus with stage 4 chronic kidney disease, without long-term current use of insulin ([facility]) LIPID PANEL WITH REFLEX TO DIRECT LDL Routine 09/11/2024 11:36 AM EST Type 2 diabetes mellitus with stage 3b chronic kidney disease, without long-term current use of insulin (CMS/HCC) from Last 3 Months or Most Recently Relevant to Health Maintenance Results * (ABNORMAL) POCT glycosylated hemoglobin (Hgb A1c) (01/06/2025 11:18 AM EDT) Hemoglobin A1C 6.4(A) 4.0 - 6.0 % QC Media Lot # [id number] Lot# Expiration Date [id number] Blood Capillary blood specimen / Unknown 01/06/2025 11:18 AM EDT Lula Lopez MD POINT OF CARE TEST ENTER/EDIT OR DERABLES Final Result * Lipid Panel with Reflex to Direct LDL (09/11/2024 11:36 AM EST) Triglycerides 72 <150 mg/dL [facility] Comment:Desirable Triglyceri de: less than 150 mg/dLBorderline High Triglyceride 150-199 mg/dLHigh Triglyceride: 200-499 mg/dLVery High Triglyceride: greater than or equal to 5OO mg/dL Cholesterol 150 <200 mg/dL [facility] Comment:Desirable Cholestero l: less than 200 mg/dLBorderline High Cholesterol: 200-239 mg/dLHigh Cholesterol: greater than 239 mg/dL LDL Cholesterol Calculated 68 <100 mg/dL [facility] Comment:Desirable LDL: less than 100 mg/dLNear Optimal/Above Optimal LDL: 110- 129 mg/dLBorderline High LDL: 130-159 mg/dLHigh LDL: 160-189 mg/dLVery High LDL: greater than or equal to 190 mg/dL HDL Cholesterol 68 >40 mg/dL [facility] Comment:Desirable HDL: great er than 40 mg/dL Note: This HDL assay may give artificially low results in patients with liver disease. Blood 09/11/2024 11:3 6 AM EST 09/11/2024 1:25 PM EST us Lula Lopez MD LAB BLOOD ORDERABLES Final Resul t [facility] [address] [place] [address] [phone] from Last 3 Months or Most Recently Relevant to Health Maintenance [place] [address] [place] [address] MEDICARE ADVANTAGE HMO [facility] Care Teams Contact Lens Blocker Relationship Specialty Start Date End Date Lula Lopez MD [address] [place] [address] PCP - General Family Medicine 09/01/22 Pieter Murguia, AmaD [address] [place] [address] Pharmacist Internal Medicine 11/28/22 Kushal Doe MD [facility] [address] [place] [id number] Nephrology 06/19/24
== END 2025-04-14 12:18 | disposition home or self-care (01) ==
LOC: HO.HUSH 11:25
PROVIDERS: PCP Family Medicine; Visit Provider Nurse Practitioner Family
DX: N28.1 Cyst of kidney, acquired (principal); R35.0 Frequency of micturition; R33.9 Retention of urine, unspecified; R35.1 Nocturia; N40.0 Benign prostatic hyperplasia without lower urinary tract symptoms; N39.43 Post-void dribbling; Z13.9 Encounter for screening, unspecified
CPT/HCPCS: 99213; G2211

== ENCOUNTER → 2025-04-14 11:25 | Outpatient (BNVA) | payer MEDICARE, MEDICAID, SELFPAY | PROVIDERS: PCP Family Medicine; Visit Provider Nurse Practitioner Family | DX: N40.1 Benign prostatic hyperplasia with lower urinary tract symptoms (principal); N39.43 Post-void dribbling; R35.1 Nocturia; R33.9 Retention of urine, unspecified; R35.0 Frequency of micturition; N28.1 Cyst of kidney, acquired; Z13.9 Encounter for screening, unspecified | CPT/HCPCS: 51798; 81003; 99212 ==